=== PATIENT | female | born 1935 | race Caucasian/White ===

== ENCOUNTER 2017-05-16 05:32 | Emergency (ER) | payer MEDICARE, OTHER ==
[2017-05-16 05:40] VITALS: BP 169/105
--- NOTE | 2017-05-16 06:56 | EDM.PDOC ---
ED HPI GENERAL MEDICAL PROBLEM - General Chief Complaint: Cardiovascular Problem Stated Complaint: TROUBLE BREATHING/HIGH BP Time Seen by Provider: 05/16/17 05:39 Source of Information: Reports: Patient History Limitations: Reports: No Limitations - History of Present Illness INITIAL COMMENTS - FREE TEXT/NARRATIVE: History of present illness: [81-year-old female presenting with palpitations that occurred last night when she went to bed. She had a recent echocardiogram and was called and said that her "heart didn't relax well". She has a follow-up appointment with her real estate firm manager on 10 June and is being told that they're going to make some adjustments in her medications. She did not have any lightheadedness or dizziness. She had no chest pain or shortness of breath or diaphoresis. She feels fine here in the ER.] Review of systems: As per history of present illness and below otherwise all systems reviewed and negative. Past medical history: As per history of present illness and as reviewed below otherwise noncontributory. Surgical history: As per history of present illness and as reviewed below otherwise noncontributory. Social history: No reported history of drug or alcohol abuse. Family history: As per history of present illness and as reviewed below otherwise noncontributory. Physical exam: HEENT: Atraumatic, normocephalic, pupils reactive, negative for conjunctival pallor or scleral icterus, mucous membranes moist, throat clear, neck supple, nontender, trachea midline. Lungs: Clear to auscultation, breath sounds equal bilaterally, chest nontender. Heart: S1S2, regular, negative for clicks, rubs, or JVD. Abdomen: Soft, nondistended, nontender. Negative for masses or hepatosplenomegaly. Negative for costovertebral tenderness. Pelvis: Stable nontender. Genitourinary: Deferred. Rectal: Deferred. Extremities: Atraumatic, negative for cords or calf pain. Neurovascular unremarkable. Neuro: Awake, alert, oriented. Cranial nerves II through XII unremarkable. Cerebellum unremarkable. Motor and sensory unremarkable throughout. Exam nonfocal. Diagnostics: [EKG shows a sinus rhythm with no current of ischemia or infarct troponin is negative CBC and complete metabolic panel were done. On the monitor there were no runs of atrial fib or V. tach or ectopy.] Therapeutics: [] Impression: [Subjective palpitations] Plan: [We reassured her that things seem to be okay and that she can continue to take her medications as prescribed and follow-up with her real estate firm manager with anticipation of her medications being changed when she does so.] Definitive disposition and diagnosis as appropriate pending reevaluation and review of above. - Related Data Allergies Allergy/AdvReac Type Severity Reaction Status Date / Time ampicillin Allergy Rash Verified 11/04/14 03:08 niacin Allergy Cannot Verified 11/04/14 03:37 Remember strawberry Allergy Cannot Verified 11/04/14 03:37 Remember Sulfa (Sulfonamide Allergy Cannot Verified 11/04/14 03:08 Antibiotics) Remember zolpidem tartrate Allergy Confusion Verified 11/04/14 03:37 [From Riccardo] Home Meds: Home Meds Aspirin [Ecotrin] 81 mg PO DAILY 11/04/14 [History] Calcium Carbonate/Vitamin D3 [Calcium 600 + Vit D 400] 1 tab PO DAILY 11/04/14 [ History] Metoprolol Succinate [Toprol Xl] 25 mg PO BID 11/04/14 [History] Multivitamin [Multi Vitamin Daily] 1 tab PO DAILY 11/04/14 [History] Ranitidine [Zantac] 150 mg PO DAILY 11/04/14 [History] amLODIPine [Norvasc] 5 mg PO DAILY 11/04/14 [History] atorvaSTATin [Lipitor] 20 mg PO DAILY 11/04/14 [History] Furosemide 40 mg PO DAILY 05/16/17 [History] Warfarin [Coumadin] 1.5 mg PO ASDIRECTED 05/16/17 [History] Warfarin [Coumadin] 1.5 mg PO DAILY 05/16/17 [History] Past Medical History HEENT History: Reports: Impaired Vision Cardiovascular History: Reports: High Cholesterol, Hypertension, [place], Stents 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: Musculoskeletal History: Reports: Osteoarthritis, Osteoporosis - Infectious Disease History Infectious Disease History: Reports: Chicken Pox, Measles, Mumps - Past Surgical History HEENT Surgical History: Reports: Cataract Surgery Cardiovascular Surgical History: Reports: Coronary Artery Stent, Vascular Surgery GI Surgical History: Reports: Appendectomy Social & Family History - Tobacco Use Smoking Status *Q: Never Smoker - Caffeine Use Caffeine Use: Reports: None - Alcohol Use Days Per Week of Alcohol Use: 0 - Recreational Drug Use Recreational Drug Use: No ED ROS GENERAL - Review of Systems Review Of Systems: ROS reveals no pertinent complaints other than HPI. ED EXAM, GENERAL - Physical Exam Exam: See Below Course - Vital Signs Last Recorded V/S: Last Vital Signs Temp 35.2 C 05/16/17 05:39 Pulse 87 05/16/17 05:39 Resp 18 05/16/17 05:39 BP 169/105 H 05/16/17 05:39 Pulse Ox 99 05/16/17 05:39 - Orders/Labs/Meds Labs: Laboratory Tests 05/16/17 05/16/17 Range/Units 06:09 06:09 WBC 6.1 (4.5-11.0) K/uL RBC 4.35 (3.30-5.50) M/uL Hgb 13.0 (12.0-15.0) g/dL Hct 39.4 (36.0-48.0) % MCV 91 (80-98) fL MCH 30 (27-31) pg MCHC 33 (32-36) % Plt Count 216 (150-400) K/uL Neut % (Auto) 72 H (36-66) % Lymph % (Auto) 11 L (24-44) % [place] % (Auto) 13 H (2-6) % Eos % (Auto) 4 (2-4) % Baso % (Auto) 1 (0-1) % Sodium 143 (140-148) mmol/L Potassium 3.7 (3.6-5.2) mmol/L Chloride 108 (100-108) mmol/L Carbon Dioxide 26 (21-32) mmol/L Anion Gap 9.4 (5.0-14.0) mmol/L BUN 23 H (7-18) mg/dL Creatinine 0.8 (0.6-1.0) mg/dL Est Cr Clr Drug Dosing 44.65 mL/min Estimated GFR (MDRD) > 60 (>60) Glucose 109 H (74-106) mg/dL Calcium 8.8 (8.5-10.1) mg/dL Total Bilirubin 0.6 (0.2-1.0) mg/dL AST 18 (15-37) U/L ALT 19 (12-78) U/L Alkaline Phosphatase 105 (46-116) U/L Troponin I < 0.017 (0.000-0.056) ng/mL Total Protein 7.3 (6.4-8.2) g/dL Albumin 3.4 (3.4-5.0) g/dL Globulin 3.9 H (2.3-3.5) g/dL Albumin/Globulin Ratio 0.9 L (1.2-2.2) Departure - Departure Time of Disposition: 06:55 Disposition: Home, Self-Care 01 Condition: Good Clinical Impression: Palpitations Forms: ED Department Discharge Additional Instructions: Please follow-up with your real estate firm manager as planned. Continue to take your medications as prescribed. If you have palpitations that do not go away or you develop chest pain then you will need to return to the emergency room.
== END 2017-05-16 07:00 | disposition home or self-care (01) ==
LOC: JP.ED 05:32
DX: R00.2 Palpitations (principal); E78.00 Pure hypercholesterolemia, unspecified; I10 Essential (primary) hypertension; I25.2 Old myocardial infarction; M81.0 Age-related osteoporosis without current pathological fracture; Z90.49 Acquired absence of other specified parts of digestive tract; Z98.49 Cataract extraction status, unspecified eye; Z95.5 Presence of coronary angioplasty implant and graft; Z88.8 Allergy status to other drugs, medicaments and biological substances; Z88.2 Allergy status to sulfonamides; Z91.018 Allergy to other foods
CPT/HCPCS: 36415; 80053; 84484; 85025; 93005; 93010; 99282; 99285

== ENCOUNTER 2018-04-12 05:34 | Emergency (ER) | payer MEDICARE, OTHER ==
--- NOTE | 2018-04-12 06:08 | EDM.PDOC ---
<Gil Kellogg G - Last Filed: 04/12/18 06:42> ED HPI GENERAL MEDICAL PROBLEM - General Chief Complaint: Cardiovascular Problem Stated Complaint: CHEST PAIN Time Seen by Provider: 04/12/18 06:20 Source of Information: Reports: Patient, Old Records, RN History Limitations: Reports: No Limitations - History of Present Illness INITIAL COMMENTS - FREE TEXT/NARRATIVE: 82 yo female presents after an episode of self-limited central chest pain. Says she awoke about 1 am and could not get back to sleep so she got up and had a glass of milk. When she went back to bed she developed the pain that lasted about 45 minutes and was not associated with SOB, nausea, or diaphoresis. Reports no recent exertional chest pain. Has not missed any of her BP meds recently. States her BP runs about 115 to 140 systolic generally and her last measurement was about a week ago. Did take a TUMS at home after the onset of sx' s and her symptoms resolved, but not right away. Does take ranitidine 150 mg at bedtime every day. Does have a pHx of CAD. Does not ever check her BP the first thing when she awakens, so this BP elevation she is experiencing in the ER may not be new. Onset: Today Onset Date: 04/12/18 Onset Time: 04:00 Duration: Minutes: (about 45 ), Resolved Prior to Arrival Location: Reports: Chest Quality: Reports: Dull Severity: Mild Improves with: Reports: Other (? time vs. 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) (TUMS) denies Pain Score (Numeric/FACES): 0 - Related Data Allergies Allergy/AdvReac Type Severity Reaction Status Date / Time ampicillin Allergy Rash Verified 11/04/14 03:08 niacin Allergy Cannot Verified 11/04/14 03:37 Remember strawberry Allergy Cannot Verified 11/04/14 03:37 Remember Sulfa (Sulfonamide Allergy Cannot Verified 11/04/14 03:08 Antibiotics) Remember zolpidem tartrate Allergy Confusion Verified 11/04/14 03:37 [From Riccardo] Home Meds: Home Meds Calcium Carbonate/Vitamin D3 [Calcium 600 + Vit D 400] 1 tab PO DAILY 11/04/14 [ History] Metoprolol Succinate [Toprol Xl] 50 mg PO BID 11/04/14 [History] Multivitamin [Multi Vitamin Daily] 1 tab PO DAILY 11/04/14 [History] Ranitidine [Zantac] 150 mg PO DAILY 11/04/14 [History] amLODIPine [Norvasc] 10 mg PO DAILY 11/04/14 [History] atorvaSTATin [Lipitor] 20 mg PO DAILY 11/04/14 [History] Furosemide 40 mg PO DAILY 05/16/17 [History] Warfarin [Coumadin] 1 mg PO DAILY 05/16/17 [History] Warfarin [Coumadin] 1.5 mg PO ASDIRECTED 05/16/17 [History] Potassium Chloride [Klor-Con 10] 10 meq PO DAILY 04/12/18 [History] Past Medical History HEENT History: Reports: Impaired Vision Cardiovascular History: Reports: High Cholesterol, Hypertension, [place], Stents 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: Musculoskeletal History: Reports: Osteoarthritis, Osteoporosis - Infectious Disease History Infectious Disease History: Reports: Chicken Pox, Measles, Mumps - Past Surgical History HEENT Surgical History: Reports: Cataract Surgery Cardiovascular Surgical History: Reports: Coronary Artery Stent, Vascular Surgery GI Surgical History: Reports: Appendectomy Social & Family History - Caffeine Use Caffeine Use: Reports: None ED ROS GENERAL - Review of Systems Review Of Systems: See Below Constitutional: Reports: No Symptoms HEENT: Reports: No Symptoms Respiratory: Reports: No Symptoms Cardiovascular: Reports: Chest Pain (now resolved.) GI/Abdominal: Reports: No Symptoms : Reports: No Symptoms Musculoskeletal: Reports: No Symptoms Skin: Reports: No Symptoms Neurological: Reports: No Symptoms ED EXAM, GENERAL - Physical Exam Exam: See Below Exam Limited By: No Limitations General Appearance: Alert, WD/WN, No Apparent Distress Eye Exam: Bilateral Eye: Normal Inspection Ears: Normal External Exam, Normal Canal, Hearing Grossly Normal Ear Exam: Bilateral Ear: Auricle Normal, Canal Normal Nose: Normal Inspection, Normal Mucosa, No Blood Throat/Mouth: Normal Inspection, Normal Lips, Normal Voice, No Airway Compromise Head: Atraumatic, Normocephalic Neck: Normal Inspection Respiratory/Chest: No Respiratory Distress, Lungs Clear, Normal Breath Sounds, No Accessory Muscle Use Cardiovascular: Regular Rate, Rhythm, Other (no chest wall pain) GI/Abdominal: Normal Bowel Sounds, Soft, Non-Tender, No Distention Extremities: Normal Inspection, Normal Range of Motion, Non-Tender, No Pedal Edema Neurological: Alert, Oriented, CN II-XII Intact, Normal Cognition, No Motor/ Sensory Deficits Psychiatric: Normal Affect, Normal Mood Skin Exam: Warm, Dry, Intact, Normal Color, No Rash EKG INTERPRETATION EKG Date: 04/12/18 Time: 05:55 Rhythm: NSR Rate (Beats/Min): 63 [place]: Normal P-Wave: Present QRS: Normal ST-T: Normal QT: Normal Comparison: Change From Previous EKG (ST depression seen on last EKG in lead V5 is no longer present.) Course - Vital Signs Last Recorded V/S: Last Vital Signs Temp 98.8 F 04/12/18 06:39 Pulse 54 L 04/12/18 08:29 Resp 19 04/12/18 08:29 BP 161/62 H 04/12/18 08:29 Pulse Ox 99 04/12/18 08:29 - Orders/Labs/Meds Orders: Active Orders 24 hr Category Date Time Status EKG Documentation Completion [RC] ASDIRECTED Care 04/12/18 06:03 Active EKG 12 Lead [EK] Routine Ther 04/12/18 06:03 Ordered Labs: Laboratory Tests 04/12/18 04/12/18 04/12/18 Range/Units 06:10 06:10 06:10 PT 22.9 H (9.5-12.0) sec INR 2.08 H (0.80-1.20) Sodium 142 (140-148) mmol/L Potassium 3.6 (3.6-5.2) mmol/L Chloride 105 (100-108) mmol/L Carbon Dioxide 27 (21-32) mmol/L Anion Gap 9.9 (5.0-14.0) mmol/L BUN 21 H (7-18) mg/dL Creatinine 0.9 (0.6-1.0) mg/dL Est Cr Clr Drug Dosing 39.18 mL/min Estimated GFR (MDRD) 60 (>60) Glucose 123 H (74-106) mg/dL Calcium 9.5 (8.5-10.1) mg/dL Troponin I < 0.017 (0.000-0.056) ng/mL 04/12/18 Range/Units 08:20 PT (9.5-12.0) sec INR (0.80-1.20) Sodium (140-148) mmol/L Potassium (3.6-5.2) mmol/L Chloride (100-108) mmol/L Carbon Dioxide (21-32) mmol/L Anion Gap (5.0-14.0) mmol/L BUN (7-18) mg/dL Creatinine (0.6-1.0) mg/dL Est Cr Clr Drug Dosing mL/min Estimated GFR (MDRD) (>60) Glucose (74-106) mg/dL Calcium (8.5-10.1) mg/dL Troponin I < 0.017 (0.000-0.056) ng/mL Departure - Departure Disposition: Home, Self-Care 01 Clinical Impression: Epigastric pain Referrals: Yovany Miramontes MD [Primary Care Provider] - Forms: ED Department Discharge Additional Instructions: Please followup with your primary care provider in 2-3 days if not better, please call return to the emergency department with worsening of symptoms. <OfficerVipin - Last Filed: 04/12/18 08:59> Departure - Departure Time of Disposition: 08:58 Condition: Good - Assessment/Plan Plan: Assessment Acuity = acute Site and laterality = epigastric pain Etiology = unclear etiology Manifestations = all symptoms now resolved Location of injury = Home Lab values = BMP within normal limits, INR is therapeutic troponin is negative 2 EKG demonstrates no acute process Plan Plan is to discharge home follow-up primary care in the next 2-3 days for reevaluation This note was dictated using [employer] voice recognition software please call with any questions on syntax or grammar.
[2018-04-12 08:29] VITALS: BP 161/62
== END 2018-04-12 09:08 | disposition home or self-care (01) ==
LOC: JP.ED 05:34
DX: R10.13 Epigastric pain (principal); E78.00 Pure hypercholesterolemia, unspecified; I10 Essential (primary) hypertension; I25.2 Old myocardial infarction; Z88.0 Allergy status to penicillin; Z88.2 Allergy status to sulfonamides; Z88.8 Allergy status to other drugs, medicaments and biological substances; Z79.01 Long term (current) use of anticoagulants; Z79.899 Other long term (current) drug therapy; Z95.5 Presence of coronary angioplasty implant and graft; Z90.49 Acquired absence of other specified parts of digestive tract
CPT/HCPCS: 36415; 80048; 84484; 85610; 93005; 93010; 99285-25

== ENCOUNTER 2018-06-05 17:19 | Emergency (ER) | payer MEDICARE, OTHER ==
[2018-06-05 18:35] VITALS: BP 193/92
[2018-06-05] MEDS ORDERED: Bacitracin Oint 1 GM U/D Packet TOP ONE (18:58)
--- NOTE | 2018-06-05 19:28 | EDM.PDOC ---
ED HPI GENERAL MEDICAL PROBLEM - General Chief Complaint: Laceration Stated Complaint: CUT RIGHT INDEX FINGER WITH A KNIFE Time Seen by Provider: 06/05/18 18:40 Source of Information: Reports: Patient, Family () History Limitations: Reports: No Limitations - History of Present Illness INITIAL COMMENTS - FREE TEXT/NARRATIVE: cut to right pointer finger; this is a 82 y/o female presents to ER for laceration repair. she reports was using a knife and cut her finger. She is on coumadin, and finger bled for about one hour then decided they couldn't glue the finger and came to the ER. 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) - Related Data Allergies Allergy/AdvReac Type Severity Reaction Status Date / Time ampicillin Allergy Rash Verified 11/04/14 03:08 niacin Allergy Cannot Verified 11/04/14 03:37 Remember strawberry Allergy Cannot Verified 11/04/14 03:37 Remember Sulfa (Sulfonamide Allergy Cannot Verified 11/04/14 03:08 Antibiotics) Remember zolpidem tartrate Allergy Confusion Verified 11/04/14 03:37 [From Riccardo] Home Meds: Home Meds Calcium Carbonate/Vitamin D3 [Calcium 600 + Vit D 400] 1 tab PO DAILY 11/04/14 [ History] Metoprolol Succinate [Toprol Xl] 50 mg PO BID 11/04/14 [History] Multivitamin [Multi Vitamin Daily] 1 tab PO DAILY 11/04/14 [History] Ranitidine [Zantac] 150 mg PO DAILY 11/04/14 [History] amLODIPine [Norvasc] 10 mg PO DAILY 11/04/14 [History] atorvaSTATin [Lipitor] 20 mg PO DAILY 11/04/14 [History] Furosemide 40 mg PO DAILY 05/16/17 [History] Warfarin [Coumadin] 1 mg PO DAILY 05/16/17 [History] Warfarin [Coumadin] 1.5 mg PO ASDIRECTED 05/16/17 [History] Potassium Chloride [Klor-Con 10] 10 meq PO DAILY 04/12/18 [History] Past Medical History HEENT History: Reports: Impaired Vision Cardiovascular History: Reports: High Cholesterol, Hypertension, [place], 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: Musculoskeletal History: Reports: Osteoarthritis, Osteoporosis - Infectious Disease History Infectious Disease History: Reports: Chicken Pox, Measles, Mumps - Past Surgical History HEENT Surgical History: Reports: Cataract Surgery Cardiovascular Surgical History: Reports: Coronary Artery Stent, Vascular Surgery GI Surgical History: Reports: Appendectomy Social & Family History - Tobacco Use Smoking Status *Q: Never Smoker - Caffeine Use Caffeine Use: Reports: Coffee - Living Situation & Occupation Living situation: Reports: 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, 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 [employer], 3 children (one daughter lives in the area), many grandchildren.) ED ROS GENERAL - Review of Systems Review Of Systems: See Below Constitutional: Reports: No Symptoms Respiratory: Reports: No Symptoms Cardiovascular: Reports: No Symptoms Skin: Reports: Wound (laceration to PIP joint of the first finger of right hand) Neurological: Reports: No Symptoms Psychiatric: Reports: No Symptoms Hematologic/Lymphatic: Reports: No Symptoms Immunologic: Reports: Seasonal Allergy ED EXAM, SKIN/RASH Exam: See Below Exam Limited By: No Limitations General Appearance: Alert, WD/WN, No Apparent Distress Neck: Supple Respiratory/Chest: No Respiratory Distress, Lungs Clear, Normal Breath Sounds, No Accessory Muscle Use Cardiovascular: Normal Peripheral Pulses, No Edema, No Murmur, Irregularly Irregular (A-Fib) Skin: Warm, Dry, Normal Color, No Rash, Other (laceration to first finger of right hand) Location, Skin: Other (right finger) Characteristics: Linear Associated features: Tenderness, Weeping Lymphatic: No Adenopathy ED SKIN PROCEDURES - Laceration/Wound Repair right Midline Finger Lac/Wound length In cm: 1.5 Appearance: Subcutaneous, Linear, Clean Distal NVT: Neuro & Vascular Intact, No Tendon Injury Anesthetic Type: Local Local Anesthesia - Lidocaine (Xylocaine): 1% Plain Local Anesthetic Volume: 2cc Skin Prep: Chlorhexidine (Hibiciens), Saline Saline Irrigation (cc's): 20 Closed with: Sutures Suture Size: 4-0 # of Sutures: 5 Suture Type: Prolene Sterile Dressing Applied: Provider Tetanus Status Addressed: Yes Complications: No Course - Vital Signs Last Recorded V/S: Last Vital Signs Temp 35 C L 06/05/18 18:35 Pulse 70 07/07/18 18:35 Resp 18 06/05/18 18:35 BP 193/92 H 06/05/18 18:35 Pulse Ox 99 06/05/18 18:35 - Orders/Labs/Meds Meds: Medications Discontinued Medications Generic Name Dose Route Start Last Admin Trade Name Martin PRN Reason Stop Dose Admin Bacitracin 1 dose 06/05/18 18:58 06/05/18 19:05 Bacitracin Oint 1 Gm TOP 06/05/18 18:59 1 dose ONETIME ONE Administration Lidocaine HCl 5 ml 06/05/18 18:58 06/05/18 19:05 Xylocaine-Mpf 1% INJECT 06/05/18 18:59 5 ml ONETIME ONE Administration Departure - Departure Time of Disposition: 19:40 Disposition: Home, Self-Care 01 Condition: Good Clinical Impression: Broken skin, Laceration of index finger of right hand without complication - Discharge Information Instructions: Stitches, [place], or Adhesive Wound Closure, [id number] Referrals: Yovany Miramontes MD [Primary Care Provider] - Forms: ED Department Discharge Care Plan Goals: laceration repair of right pointer finger -suture x 5 ; have removed in 5 to 10 days -keep bandage for 2 days, then keep clean and dry -monitor for signs of infections return to Clinic or ER for increased pain, fever, redness, drainage or not improved. - Problem List & Annotations (1) Laceration of index finger of right hand without complication SNOMED Code(s): 989085626 Code(s): S61.210A - LACERATION W/O FB OF R IDX FNGR W/O DAMAGE TO NAIL, INIT Status: Acute Priority: Medium - Problem List Review Problem List Initiated/Reviewed/Updated: Yes - Assessment/Plan Plan: aceration repair of right pointer finger -suture x 5 ; have removed in 5 to 10 days -keep bandage for 2 days, then keep clean and dry -monitor for signs of infections return to Clinic or ER for increased pain, fever, redness, drainage or not improved.
== END 2018-06-05 19:42 | disposition home or self-care (01) ==
LOC: JP.ED 17:19
DX: S61.210A Laceration without foreign body of right index finger without damage to nail, initial encounter (principal); I10 Essential (primary) hypertension; I25.2 Old myocardial infarction; Z88.1 Allergy status to other antibiotic agents; Z91.018 Allergy to other foods; Z88.8 Allergy status to other drugs, medicaments and biological substances; Z88.2 Allergy status to sulfonamides; W26.0XXA Contact with knife, initial encounter
CPT/HCPCS: 12001; 99283-25

== ENCOUNTER 2018-12-17 05:38 | Emergency (ER) | payer MEDICARE, OTHER ==
[2018-12-17] MEDS ORDERED: Metoprolol Tartrate 25 MG Tab PO ONE (06:05)
[2018-12-17] MEDS ORDERED: Metoprolol Tartrate 5 MG/5 ML SDV IVPUSH ONE (06:06)
--- NOTE | 2018-12-17 06:13 | EDM.PDOC ---
<Gil Kellogg G - Last Filed: 12/17/18 06:26> ED HPI GENERAL MEDICAL PROBLEM - General Chief Complaint: General Stated Complaint: /MAYBE A FIB Time Seen by Provider: 12/17/18 06:00 Source of Information: Reports: Patient, Old Records History Limitations: Reports: No Limitations - History of Present Illness INITIAL COMMENTS - FREE TEXT/NARRATIVE: 82 yo female here with tachycardia. Has a hx of afib. INR last measured last week and was 2.2, levels have been stable. Last took her 50 mg of bid metoprolol succinate at 4 am today. Is aware of the tachycardia and has mild SOB with exertion, no chest pain. No fever, vomiting, diarrhea,diaphoresis or bleeding. Thinks she is in NSR most of the time and has intermittent bouts of the afib. Thinks her last episode of afib may have been in '16. 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: Other (see below) (took her morning meds a little early ) Denies pain Pain Score (Numeric/FACES): 0 - Related Data Allergies Allergy/AdvReac Type Severity Reaction Status Date / Time ampicillin Allergy Rash Verified 12/17/18 06:08 niacin Allergy Cannot Verified 12/17/18 06:08 Remember strawberry Allergy Cannot Verified 12/17/18 06:08 Remember Sulfa (Sulfonamide Allergy Cannot Verified 12/17/18 06:08 Antibiotics) Remember zolpidem tartrate Allergy Confusion Verified 12/17/18 06:08 [From Riccardo] Home Meds: Home Meds Calcium Carbonate/Vitamin D3 [Calcium 600 + Vit D 400] 1 tab PO DAILY 11/04/14 [ History] Metoprolol Succinate [Toprol Xl] 50 mg PO BID 11/04/14 [History] Multivitamin [Multi Vitamin Daily] 1 tab PO DAILY 11/04/14 [History] Ranitidine [Zantac] 150 mg PO DAILY 11/04/14 [History] amLODIPine [Norvasc] 10 mg PO DAILY 11/04/14 [History] atorvaSTATin [Lipitor] 20 mg PO DAILY 11/04/14 [History] Furosemide 40 mg PO DAILY 05/16/17 [History] Warfarin [Coumadin] 1 mg PO DAILY 05/16/17 [History] Warfarin [Coumadin] 1.5 mg PO ASDIRECTED 05/16/17 [History] Potassium Chloride [Klor-Con 10] 10 meq PO DAILY 04/12/18 [History] Past Medical History HEENT History: Reports: Impaired Vision Cardiovascular History: Reports: Heart Valve Replacement, High Cholesterol, Hypertension, [place], Stents 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: Musculoskeletal History: Reports: Osteoarthritis, Osteoporosis - Infectious Disease History Infectious Disease History: Reports: Chicken Pox, Measles, Mumps - Past Surgical History HEENT Surgical History: Reports: Cataract Surgery Cardiovascular Surgical History: Reports: Coronary Artery Stent, Vascular Surgery GI Surgical History: Reports: Appendectomy Social & Family History - Caffeine Use Caffeine Use: Reports: Coffee - Living Situation & Occupation Living situation: Reports: 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 Denies : Pleuritic Chest Pain Cardiovascular: Reports: Palpitations GI/Abdominal: Reports: No Symptoms : Reports: No Symptoms Musculoskeletal: Reports: No Symptoms Skin: Reports: No Symptoms Neurological: Reports: No Symptoms Psychiatric: Reports: No Symptoms ED EXAM, GENERAL - Physical Exam Exam: See Below Exam Limited By: No Limitations General Appearance: Alert, WD/WN, No Apparent Distress Eye Exam: Bilateral Eye: Normal Inspection Ears: Normal External Exam, Normal Canal, Hearing Grossly Normal Ear Exam: Bilateral Ear: Auricle Normal, Canal Normal Nose: Normal Inspection, No Blood Throat/Mouth: Normal Inspection, Normal Lips, Normal Oropharynx, Normal Voice, No Airway Compromise Head: Atraumatic, Normocephalic Neck: Normal Inspection Respiratory/Chest: No Respiratory Distress, Lungs Clear, Normal Breath Sounds, No Accessory Muscle Use Cardiovascular: No Edema, Tachycardia, Irregularly Irregular GI/Abdominal: Normal Bowel Sounds, Soft, Non-Tender, No Distention Extremities: Normal Inspection, Normal Range of Motion, Non-Tender, No Pedal Edema, Mottled Neurological: Alert, Oriented, Normal Cognition, No Motor/Sensory Deficits Psychiatric: Normal Affect, Normal Mood Skin Exam: Warm, Dry, Intact, Normal Color, No Rash EKG INTERPRETATION EKG Date: 12/17/18 Time: 06:05 Rhythm: A-Fib Rate (Beats/Min): 131 [place]: LAD-Left [place] Deviation P-Wave: Absent QRS: Normal ST-T: Normal QT: Prolonged Comparison: Change From Previous EKG (last EKG of 04/16, she was not in afib) Course - Vital Signs Last Recorded V/S: Last Vital Signs Temp 97.7 F 12/17/18 05:57 Pulse 65 12/17/18 07:15 Resp 17 12/17/18 07:15 BP 121/67 12/17/18 07:15 Pulse Ox 95 12/17/18 07:15 - Orders/Labs/Meds Labs: Laboratory Tests 12/17/18 12/17/18 12/17/18 Range/Units 05:27 05:27 07:22 WBC 7.8 (4.5-11.0) K/uL RBC 4.04 (3.30-5.50) M/uL Hgb 12.5 (12.0-15.0) g/dL Hct 37.5 (36.0-48.0) % MCV 93 (80-98) fL MCH 31 (27-31) pg MCHC 33 (32-36) % Plt Count 203 (150-400) K/uL Neut % (Auto) 76 H (36-66) % Lymph % (Auto) 10 L (24-44) % Morrison % (Auto) 12 H (2-6) % Eos % (Auto) 2 (2-4) % Baso % (Auto) 0 (0-1) % PT 21.0 H (9.5-12.0) sec INR 1.98 H (0.80-1.20) Sodium (140-148) mmol/L Potassium (3.6-5.2) mmol/L Chloride (100-108) mmol/L Carbon Dioxide (21-32) mmol/L Anion Gap (5.0-14.0) mmol/L BUN (7-18) mg/dL Creatinine (0.6-1.0) mg/dL Est Cr Clr Drug Dosing mL/min Estimated GFR (MDRD) (>60) Glucose (74-106) mg/dL Calcium (8.5-10.1) mg/dL Total Bilirubin (0.2-1.0) mg/dL AST (15-37) U/L ALT (12-78) U/L Alkaline Phosphatase (46-116) U/L Troponin I < 0.017 (0.000-0.056) ng/mL Total Protein (6.4-8.2) g/dL Albumin (3.4-5.0) g/dL Globulin (2.3-3.5) g/dL Albumin/Globulin Ratio (1.2-2.2) 12/17/18 Range/Units 07:22 WBC (4.5-11.0) K/uL RBC (3.30-5.50) M/uL Hgb (12.0-15.0) g/dL Hct (36.0-48.0) % MCV (80-98) fL MCH (27-31) pg MCHC (32-36) % Plt Count (150-400) K/uL Neut % (Auto) (36-66) % Lymph % (Auto) (24-44) % Morrison % (Auto) (2-6) % Eos % (Auto) (2-4) % Baso % (Auto) (0-1) % PT (9.5-12.0) sec INR (0.80-1.20) Sodium 142 (140-148) mmol/L Potassium 3.4 L (3.6-5.2) mmol/L Chloride 105 (100-108) mmol/L Carbon Dioxide 25 (21-32) mmol/L Anion Gap 15.4 H (5.0-14.0) mmol/L BUN 18 (7-18) mg/dL Creatinine 0.9 (0.6-1.0) mg/dL Est Cr Clr Drug Dosing 39.18 mL/min Estimated GFR (MDRD) 60 (>60) Glucose 109 H (74-106) mg/dL Calcium 8.9 (8.5-10.1) mg/dL Total Bilirubin 0.6 (0.2-1.0) mg/dL AST 27 (15-37) U/L ALT 31 (12-78) U/L Alkaline Phosphatase 88 (46-116) U/L Troponin I (0.000-0.056) ng/mL Total Protein 7.0 (6.4-8.2) g/dL Albumin 3.3 L (3.4-5.0) g/dL Globulin 3.7 H (2.3-3.5) g/dL Albumin/Globulin Ratio 0.9 L (1.2-2.2) Meds: Medications Discontinued Medications Generic Name Dose Route Start Last Admin Trade Name Martin PRN Reason Stop Dose Admin Diltiazem HCl 20 mg 12/17/18 07:28 12/17/18 07:32 Diltiazem IVPUSH 12/17/18 07:29 20 mg ONETIME ONE Administration Metoprolol Tartrate 25 mg 12/17/18 06:05 12/17/18 06:15 Lopressor PO 12/17/18 06:06 25 mg ONETIME ONE Administration Metoprolol Tartrate 5 mg 12/17/18 06:06 12/17/18 06:16 Lopressor IVPUSH 12/17/18 06:07 5 mg ONETIME ONE Administration Departure - Departure Disposition: Home, Self-Care 01 Clinical Impression: Atrial fibrillation with RVR - Discharge Information Referrals: Yovany Miramontes MD [Primary Care Provider] - Forms: ED Department Discharge Additional Instructions: Continue on your regular medications, Please followup with your primary care provider in 3-5 days if not better, please call return to the emergency department with worsening of symptoms. <OfficerVipin - Last Filed: 12/17/18 08:38> Course - Re-Assessments/Exams Free Text/Narrative Re-Assessment/Exam: 12/17/18 07:29 Took over care from Dr. Kellogg at 7:00 AM Departure - Departure Time of Disposition: 08:37 Condition: Fair - Assessment/Plan Plan: Assessment Acuity = acute Site and laterality = atrial fibrillation with rapid ventricular response complicated patient with a known history as well as chronically anticoagulated on Coumadin status post spontaneous conversion Etiology = unknown Manifestations = palpitations and dyspnea on exertion now resolved Location of injury = Home Lab values = CBC, CMP, troponin all within normal limits, INR slightly subtherapeutic at 1.98 initial EKG demonstrates atrial fibrillation with a rapid ventricular response Plan She did receive metoprolol while in the ED initially had minimal effect and then she spontaneously converted, we did observe her for 30 minutes after spontaneous conversion discussed options such as watchful waiting versus increasing or adding another medication, she elected to do watchful waiting will follow up with her primary care in the next 3-5 days for reevaluation she will also contact the Coumadin clinic as well This note was dictated using schoox voice recognition software please call with any questions on syntax or grammar.
[2018-12-17] MEDS: Diltiazem 25 MG/5 ML SDV IVPUSH ONE ×2 (07:32→09:00)
[2018-12-17 07:49] VITALS: BP 121/67
== END 2018-12-17 09:00 | disposition home or self-care (01) ==
LOC: JP.ED 05:38
DX: I48.91 Unspecified atrial fibrillation (principal); I10 Essential (primary) hypertension; I25.2 Old myocardial infarction; Z88.1 Allergy status to other antibiotic agents; Z91.018 Allergy to other foods; Z88.2 Allergy status to sulfonamides; Z88.9 Allergy status to unspecified drugs, medicaments and biological substances
CPT/HCPCS: 36415; 80053; 84484; 85025; 85610; 96374; 99285; A9270; J3490

== ENCOUNTER 2019-10-29 09:57 | Emergency (ER) | payer MEDICARE, OTHER ==
[2019-10-29] MEDS ORDERED: Metoprolol Tartrate 5 MG in Sodium Chloride 0.9% 50 ML IV ONE (10:16)
[2019-10-29] MEDS: Metoprolol Tartrate 5 MG/5 ML SDV IVPUSH ONE (10:48)
--- NOTE | 2019-10-29 10:52 | EDM.PDOC ---
ED HPI GENERAL MEDICAL PROBLEM - General Chief Complaint: Cardiovascular Problem Stated Complaint: A FIB? Time Seen by Provider: 10/29/19 10:20 Source of Information: Reports: Patient History Limitations: Reports: No Limitations - History of Present Illness INITIAL COMMENTS - FREE TEXT/NARRATIVE: 83-year-old with known history of paroxysmal A. fib, as well as aortic valve replacement, managed on Coumadin, comes in with concerns of A. fib. She reports she woke up at approximately 7 AM this morning and was experiencing palpitations. She denies any associated dyspnea or chest pain. She does have a sensation of heaviness. She is otherwise been feeling well. No increased caffeine or alcohol intake. She reports prior episodes of A. fib that required medical attention, occasionally these resolve spontaneously but also she has required cardioversion. Chest Pain Score (Numeric/FACES): 2 - Related Data Allergies Allergy/AdvReac Type Severity Reaction Status Date / Time ampicillin Allergy Rash Verified 10/29/19 10:38 niacin Allergy Cannot Verified 10/29/19 10:38 Remember strawberry Allergy Cannot Verified 10/29/19 10:38 Remember Sulfa (Sulfonamide Allergy Cannot Verified 10/29/19 10:38 Antibiotics) Remember zolpidem tartrate Allergy Confusion Verified 10/29/19 10:38 [From Riccardo] Home Meds: Home Meds Calcium Carbonate/Vitamin D3 [Calcium 600 + Vit D 400] 1 tab PO DAILY 11/04/14 [ History] Metoprolol Succinate [Toprol Xl] 50 mg PO BID 11/04/14 [History] Multivitamin [Multi Vitamin Daily] 1 tab PO DAILY 11/04/14 [History] amLODIPine [Norvasc] 10 mg PO DAILY 11/04/14 [History] atorvaSTATin [Lipitor] 20 mg PO BEDTIME 11/04/14 [History] Furosemide 40 mg PO DAILY 05/16/17 [History] Warfarin [Coumadin] 1 mg PO BEDTIME 05/16/17 [History] Potassium Chloride [Klor-Con 10] 10 meq PO DAILY 04/12/18 [History] Benzonatate 100 mg PO TID 10/29/19 [History] Clindamycin HCl 600 mg PO ASDIRECTED PRN 10/29/19 [History] Oxybutynin 2.5 mg PO BID 10/29/19 [History] predniSONE [Prednisone] 3 mg PO DAILY 10/29/19 [History] Past Medical History HEENT History: Reports: Impaired Vision Cardiovascular History: Reports: Heart Valve Replacement, High Cholesterol, Hypertension, [place], Stents 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: Musculoskeletal History: Reports: Osteoarthritis, Osteoporosis - Infectious Disease History Infectious Disease History: Reports: Chicken Pox, Measles, Mumps - Past Surgical History HEENT Surgical History: Reports: Cataract Surgery Cardiovascular Surgical History: Reports: Coronary Artery Stent, Vascular Surgery GI Surgical History: Reports: Appendectomy Social & Family History - Tobacco Use Smoking Status *Q: Never Smoker - Caffeine Use Caffeine Use: Reports: Coffee - Recreational Drug Use Recreational Drug Use: No - Living Situation & Occupation Living situation: Reports: 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, 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, 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 (one daughter lives in the area), many grandchildren.) ED ROS GENERAL - Review of Systems Review Of Systems: See Below Constitutional: Reports: No Symptoms HEENT: Reports: No Symptoms Respiratory: Reports: No Symptoms Cardiovascular: Reports: Palpitations Endocrine: Reports: No Symptoms GI/Abdominal: Reports: No Symptoms : Reports: No Symptoms Musculoskeletal: Reports: No Symptoms Skin: Reports: No Symptoms Neurological: Reports: No Symptoms Psychiatric: Reports: No Symptoms Hematologic/Lymphatic: Reports: No Symptoms Immunologic: Reports: No Symptoms ED EXAM, GENERAL - Physical Exam Exam: See Below Exam Limited By: No Limitations General Appearance: Alert, No Apparent Distress Ears: Normal External Exam Nose: Normal Inspection Throat/Mouth: Normal Inspection Head: Atraumatic, Normocephalic Neck: Normal Inspection Respiratory/Chest: Lungs Clear Cardiovascular: Tachycardia, Irregularly Irregular GI/Abdominal: Soft, Non-Tender Back Exam: Normal Inspection Extremities: Normal Inspection. No: Pedal Edema Neurological: Alert, Oriented Psychiatric: Normal Affect, Normal Mood Skin Exam: Warm, Dry ED CARDIOLOGY PROCEDURES - Cardioversion Time of Cardioversion: 11:46 Indication: Atrial Fibrillation with RVR Patient Counseled: Yes Informed Consent Obtained: Yes Preparation: IV Access, Airway Management Equipment, Supplemental Oxygen, Monitor Pre-Procedure Sedation: Other (propofol per HARNESS CUTTER) Cardioversion Energy: Other (150J Sync) Mode: Biphasic Successful: Yes Number of Attempts: 1 Patient Condition Post Cardioversion: Improved Post Cardioversion EKG Reviewed: Yes (NSR) Course - Vital Signs Last Recorded V/S: Last Vital Signs Temp 36.8 C 10/29/19 10:24 Pulse 143 H 10/29/19 10:57 Resp 22 H 10/29/19 10:57 BP 101/38 L 10/29/19 10:57 Pulse Ox 96 10/29/19 10:57 - Orders/Labs/Meds Orders: Active Orders 24 hr Category Date Time Status EKG Documentation Completion [RC] ASDIRECTED Care 10/29/19 10:07 Active EKG Documentation Completion [RC] ASDIRECTED Care 10/29/19 11:34 Active EKG 12 Lead [EK] Routine Ther 10/29/19 10:07 Ordered EKG 12 Lead [EK] Routine Ther 10/29/19 11:34 Ordered Labs: Laboratory Tests 10/29/19 10/29/19 10/29/19 Range/Units 10:18 10:18 10:18 WBC 10.7 (4.5-11.0) K/uL RBC 4.35 (3.30-5.50) M/uL Hgb 13.0 (12.0-15.0) g/dL Hct 41.6 (36.0-48.0) % MCV 96 (80-98) fL MCH 30 (27-31) pg MCHC 31 L (32-36) % Plt Count 304 (150-400) K/uL PT 31.6 H (9.5-12.0) sec INR 3.12 H (0.80-1.20) Sodium 142 (140-148) mmol/L Potassium 3.7 (3.6-5.2) mmol/L Chloride 105 (100-108) mmol/L Carbon Dioxide 25 (21-32) mmol/L Anion Gap 12.1 (5.0-14.0) mmol/L BUN 13 (7-18) mg/dL Creatinine 0.9 (0.6-1.0) mg/dL Est Cr Clr Drug Dosing 38.49 mL/min Estimated GFR (MDRD) 60 (>60) Glucose 130 H (74-106) mg/dL Calcium 9.4 (8.5-10.1) mg/dL Magnesium 2.1 (1.8-2.4) mg/dL Total Bilirubin 0.7 (0.2-1.0) mg/dL AST 27 (15-37) U/L ALT 37 (12-78) U/L Alkaline Phosphatase 99 (46-116) U/L Total Protein 7.6 (6.4-8.2) g/dL Albumin 3.6 (3.4-5.0) g/dL Globulin 4.0 H (2.3-3.5) g/dL Albumin/Globulin Ratio 0.9 L (1.2-2.2) Meds: Medications Discontinued Medications Generic Name Dose Route Start Last Admin Trade Name Freq PRN Reason Stop Dose Admin Metoprolol Tartrate 5 mg/ 55 mls @ 100 mls/hr 10/29/19 10:16 Sodium Chloride IV 10/29/19 10:48 ONETIME ONE Metoprolol Tartrate 5 mg 10/29/19 10:41 10/29/19 10:48 Lopressor IVPUSH 10/29/19 10:42 5 mg ONETIME ONE Administration Propofol Confirm 10/29/19 11:42 Diprivan 20 Ml Administered 10/29/19 11:43 Dose 200 mg .ROUTE .STK-MED ONE - Re-Assessments/Exams Free Text/Narrative Re-Assessment/Exam: 83-year-old with history of paroxysmal A. fib managed on Coumadin presents with concerns of A. fib. She is found to be in A. fib with RVR. She has no other signs or symptoms of heart failure. No clear trigger, but is not endorsing ischemic symptoms. We are checking basic labs, INR, and given her a dose of Lopressor to monitor for a bit for spontaneous resolution or improvement in symptoms. If we cannot achieve this and we will plan for sedation and cardioversion as she sounds like she's had some success with this in the past. 10/29/19 10:51 Free Text/Narrative Re-Assessment/Exam: Labs are unremarkable, she has a supratherapeutic INR. She already had a plan in place to address this with her Coumadin clinic. No response with 5mg lopressor. Elected then to proceed straight to cardioversion which was successful Anticipate discharge with prn follow-up once she has recovered appropriately from sedation. 10/29/19 11:47 Departure - Departure Time of Disposition: 11:48 Disposition: Home, Self-Care 01 Clinical Impression: Atrial fibrillation with RVR Instructions: Atrial Fibrillation, [id number] Referrals: Yovany Miramontes MD [Primary Care Provider] - Forms: ED Department Discharge Additional Instructions: You have been successfully cardioverted out of atrial fibrillation. We do not need to change any of her medications. Please follow-up with your Coumadin clinic as planned Please return to the ER if you have recurrent symptoms or feel that your a-fib has returned. - My Orders Last 24 Hours: My Active Orders 10/29/19 10:07 EKG Documentation Completion [RC] ASDIRECTED EKG 12 Lead [EK] Routine 10/29/19 11:34 EKG Documentation Completion [RC] ASDIRECTED EKG 12 Lead [EK] Routine - Assessment/Plan Last 24 Hours: My Active Orders 10/29/19 10:07 EKG Documentation Completion [RC] ASDIRECTED EKG 12 Lead [EK] Routine 10/29/19 11:34 EKG Documentation Completion [RC] ASDIRECTED EKG 12 Lead [EK] Routine
[2019-10-29] MEDS ORDERED: Propofol 200 MG/20 ML SDV ONE (11:42)
[2019-10-29 12:05] VITALS: BP 143/55; PULSE 59
== END 2019-10-29 12:20 | disposition home or self-care (01) ==
LOC: JP.ED 09:57
DX: I48.0 Paroxysmal atrial fibrillation (principal); E78.00 Pure hypercholesterolemia, unspecified; I10 Essential (primary) hypertension; I25.2 Old myocardial infarction; Z88.1 Allergy status to other antibiotic agents; Z88.8 Allergy status to other drugs, medicaments and biological substances; Z91.018 Allergy to other foods; Z88.2 Allergy status to sulfonamides; Z95.2 Presence of prosthetic heart valve; Z95.5 Presence of coronary angioplasty implant and graft; Z79.01 Long term (current) use of anticoagulants
CPT/HCPCS: 36415; 80053; 83735; 85027; 85610; 92960; 93005; 93010; 96374; 99283; 99285-25; J2704; J3490

== ENCOUNTER 2020-08-05 04:19 | Inpatient (IN) | payer MEDICARE, OTHER ==
[2020-08-05] MEDS ORDERED: Diltiazem 25 MG/5 ML SDV IVPUSH ONE ×2 (04:50→05:19)
--- NOTE | 2020-08-05 04:58 | EDM.PDOC ---
ED HPI GENERAL MEDICAL PROBLEM - General Chief Complaint: Cardiovascular Problem Stated Complaint: TROUBLE BREATHING Time Seen by Provider: 08/05/20 04:53 Source of Information: Reports: Patient History Limitations: Reports: No Limitations - History of Present Illness INITIAL COMMENTS - FREE TEXT/NARRATIVE: pt is sob and is feeling like her heart is rapid. She has not had chest pain. She believes that she has been in a abnormal rhythm for the past 2 days. Onset: Other (probaly 2 days ago. ) Duration: Hour(s): Location: Reports: Chest Associated Symptoms: Reports: Shortness of Breath, Weakness Headache Pain Score (Numeric/FACES): 3 - Related Data Allergies Allergy/AdvReac Type Severity Reaction Status Date / Time ampicillin Allergy Rash Verified 08/05/20 04:29 niacin Allergy Cannot Verified 08/05/20 04:29 Remember strawberry Allergy Cannot Verified 08/05/20 04:29 Remember Sulfa (Sulfonamide Allergy Cannot Verified 08/05/20 04:29 Antibiotics) Remember zolpidem tartrate Allergy Confusion Verified 08/05/20 04:29 [From Riccardo] Home Meds: Home Meds Calcium Carbonate/Vitamin D3 [Calcium 600 + Vit D 400] 1 tab PO DAILY 11/04/14 [History] Metoprolol Succinate [Toprol Xl] 50 mg PO BID 11/04/14 [History] Multivitamin [Multi Vitamin Daily] 1 tab PO DAILY 11/04/14 [History] amLODIPine [Norvasc] 10 mg PO DAILY 11/04/14 [History] atorvaSTATin [Lipitor] 20 mg PO BEDTIME 11/04/14 [History] Furosemide 40 mg PO DAILY 05/16/17 [History] Warfarin [Coumadin] 1 mg PO BEDTIME 05/16/17 [History] Potassium Chloride [Klor-Con 10] 10 meq PO DAILY 04/12/18 [History] Benzonatate 100 mg PO TID 10/29/19 [History] Clindamycin HCl 600 mg PO ASDIRECTED PRN 10/29/19 [History] Oxybutynin 2.5 mg PO BID 10/29/19 [History] Warfarin [Coumadin] 0.5 mg PO BEDTIME 08/05/20 [History] Past Medical History HEENT History: Reports: Impaired Vision Cardiovascular History: Reports: Afib, Heart Valve Replacement, High Cholesterol, Hypertension, NH, Stents [employer] History: Reports: Musculoskeletal History: Reports: Osteoarthritis, Osteoporosis - Infectious Disease History Infectious Disease History: Reports: Chicken Pox, Measles, Mumps - Past Surgical History HEENT Surgical History: Reports: Cataract Surgery Cardiovascular Surgical History: Reports: Coronary Artery Stent, Vascular Surgery GI Surgical History: Reports: Appendectomy Social & Family History - Tobacco Use Smoking Status *Q: Former Smoker Used Tobacco, but Quit: Yes Month/Year Tobacco Last Used: 11/1998 - Caffeine Use Caffeine Use: Reports: Coffee - Recreational Drug Use Recreational Drug Use: No - Living Situation & Occupation Living situation: Reports: 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, 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, 3 children (one daughter lives in the area), many grandchildren.) ED ROS GENERAL - Review of Systems Review Of Systems: See Below Constitutional: Reports: Weakness HEENT: Reports: No Symptoms Respiratory: Reports: Shortness of Breath, Wheezing, Cough Cardiovascular: Reports: Lightheadedness, Palpitations Endocrine: Reports: No Symptoms GI/Abdominal: Reports: No Symptoms : Reports: No Symptoms Musculoskeletal: Reports: No Symptoms Skin: Reports: No Symptoms Neurological: Reports: Dizziness Psychiatric: Reports: No Symptoms ED EXAM, GENERAL - Physical Exam Exam: See Below Free Text/Narrative:: pt arrived quite sob and feeling like her heart is rapid. Exam Limited By: No Limitations General Appearance: Alert, Anxious, Mild Distress, Other (pupils equal and reactive. ) Ears: Normal TMs Nose: Normal Inspection Throat/Mouth: Normal Inspection Head: Atraumatic Neck: Normal Inspection Respiratory/Chest: Wheezing, Other ( sob) Cardiovascular: Tachycardia, Irregularly Irregular, Other (pt has a heart rate of 160. ) GI/Abdominal: Soft, Non-Tender (Female) Exam: Deferred Rectal (Female) Exam: Deferred Back Exam: Normal Inspection Extremities: Normal Inspection Neurological: Alert, Oriented, Normal Cognition Psychiatric: Anxious Course - Vital Signs Last Recorded V/S: Last Vital Signs Temp 37.0 C 08/06/20 06:00 Pulse 74 08/06/20 06:00 Resp 20 08/06/20 06:00 BP 155/58 H 08/06/20 06:00 Pulse Ox 95 08/06/20 06:00 - Orders/Labs/Meds Orders: Active Orders 24 hr Category Date Time Status Patient Status [ADT] Routine ADT 08/05/20 09:33 Active Ambulate [RC] QID Care 08/05/20 09:33 Active Cardiac Monitoring [RC] .As Directed Care 08/05/20 09:33 Active Height and Weight [RC] DAILY Care 08/05/20 09:33 Active Intake and Output [RC] QSHIFT Care 08/05/20 09:33 Active Notify Provider Vital Signs [RC] ASDIRECTED Care 08/05/20 09:33 Active Oxygen Therapy [RC] PRN Care 08/05/20 09:33 Active RT Aerosol Therapy [RC] ASDIRECTED Care 08/05/20 09:33 Active Up With Assistance [RC] ASDIRECTED Care 08/05/20 09:33 Active Up to Chair [RC] QID Care 08/05/20 09:33 Active VTE/DVT Education [RC] Per Unit Routine Care 08/05/20 09:33 Active Vital Signs [RC] Q2H Care 08/05/20 09:33 Active PT Evaluation and Treatment [CONS] Routine Cons 08/05/20 09:33 Active 2 Gram Sodium Diet [DIET] Diet 08/05/20 Breakfast Active Acetaminophen [TylenoL] Med 08/05/20 09:33 Active 650 mg PO Q4H PRN Albuterol [Proventil Neb Soln] Med 08/05/20 09:33 Active 2.5 mg NEB Q4H PRN Metoprolol Succinate [Toprol XL] Med 08/05/20 10:30 Active 50 mg PO BID Ondansetron [Zofran] Med 08/05/20 09:33 Active 4 mg IV Q4H PRN Oxybutynin Med 08/05/20 10:30 Active 2.5 mg PO BID Potassium Chloride Med 08/05/20 10:30 Active 10 meq PO DAILY Sodium Chloride 0.9% [Saline Flush] Med 08/05/20 09:33 Active 10 ml FLUSH ASDIRECTED PRN Warfarin [Coumadin] Med 08/05/20 21:00 Active 1.5 mg PO BEDTIME amLODIPine [Norvasc] Med 08/05/20 10:30 Active 10 mg PO DAILY atorvaSTATin [Lipitor] Med 08/05/20 21:00 Active 20 mg PO BEDTIME polyethylene glycoL 3350 [MiraLAX] Med 08/05/20 09:33 Active 17 gm PO DAILY PRN Saline Lock Insert [OM.PC] Routine Oth 08/05/20 09:33 Ordered VTE Pharmacological Contraindications [AST] Per Unit Oth 08/05/20 09:33 Ordered Routine Resuscitation Status Routine Resus Stat 08/05/20 08:34 Ordered Medication Orders Acetaminophen (Tylenol) 650 mg PO Q4H PRN PRN Reason: Pain (Mild 1-3)/fever Albuterol (Proventil Neb Soln) 2.5 mg NEB Q4H PRN PRN Reason: Shortness Of Breath/wheezing Amlodipine Besylate (Norvasc) 10 mg PO DAILY [facility] Last Admin: 08/05/20 10:35 Dose: 10 mg Documented by: SUNIL Atorvastatin Calcium (Lipitor) 20 mg PO BEDTIME [facility] Last Admin: 08/05/20 20:17 Dose: 20 mg Documented by: SB Metoprolol Succinate (Toprol Xl) 50 mg PO BID [facility] Last Admin: 08/05/20 20:17 Dose: 50 mg Documented by: Admin: 08/05/20 10:36 Dose: 50 mg Documented by: SUNIL Ondansetron HCl (Zofran) 4 mg IV Q4H PRN PRN Reason: Nausea/Vomiting Oxybutynin Chloride (Oxybutynin) 2.5 mg PO BID [facility] Last Admin: 08/05/20 20:17 Dose: 2.5 mg Documented by: Admin: 08/05/20 10:34 Dose: 2.5 mg Documented by: SUNIL Polyethylene Glycol (Miralax) 17 gm PO DAILY PRN PRN Reason: Constipation Potassium Chloride (Potassium Chloride) 10 meq PO DAILY [facility] Last Admin: 08/05/20 10:37 Dose: 10 meq Documented by: SUNIL Sodium Chloride (Saline Flush) 10 ml FLUSH ASDIRECTED PRN PRN Reason: Keep Vein Open Warfarin Sodium (Coumadin) 1.5 mg PO BEDTIME [facility] Last Admin: 08/05/20 20:16 Dose: 1.5 mg Documented by: SB Labs: Laboratory Tests 08/05/20 08/05/20 08/05/20 Range/Units 04:45 04:45 04:45 WBC 14.5 H (4.5-11.0) K/uL RBC 4.21 (3.30-5.50) M/uL Hgb 12.2 (12.0-15.0) g/dL Hct 37.8 (36.0-48.0) % MCV 90 (80-98) fL MCH 29 (27-31) pg MCHC 32 (32-36) % Plt Count 294 (150-400) K/uL Neut % (Auto) 82 H (36-66) % Lymph % (Auto) 6 L (24-44) % [place] % (Auto) 9 H (2-6) % Eos % (Auto) 3 (2-4) % Baso % (Auto) 0 (0-1) % PT 21.9 H (9.5-12.0) sec INR 2.04 H (0.80-1.20) Sodium 141 (140-148) mmol/L Potassium 3.7 (3.6-5.2) mmol/L Chloride 104 (100-108) mmol/L Carbon Dioxide 23 (21-32) mmol/L Anion Gap 13.9 (5.0-14.0) mmol/L BUN 26 H D (7-18) mg/dL Creatinine 1.0 (0.6-1.0) mg/dL Est Cr Clr Drug Dosing 32.40 mL/min Estimated GFR (MDRD) 53 L (>60) Glucose 132 H (74-106) mg/dL Calcium 9.3 (8.5-10.1) mg/dL Magnesium (1.8-2.4) mg/dL Total Bilirubin 0.9 (0.2-1.0) mg/dL AST 30 (15-37) U/L ALT 32 (12-78) U/L Alkaline Phosphatase 113 (46-116) U/L Troponin I (0.000-0.056) ng/mL NT-Pro-B Natriuret Pep (5-450) pg/mL Total Protein 7.7 (6.4-8.2) g/dL Albumin 3.6 (3.4-5.0) g/dL Globulin 4.1 H (2.3-3.5) g/dL Albumin/Globulin Ratio 0.9 L (1.2-2.2) TSH, Ultra Sensitive (0.358-3.740) uIU/mL Urine Color (YELLOW) Urine Appearance (CLEAR) Urine pH (5.0-8.0) Ur Specific [place] (1.008-1.030) Urine Protein (NEGATIVE) mg/dL Urine Glucose (UA) (NEGATIVE) mg/dL Urine Ketones (NEGATIVE) mg/dL Urine Occult Blood (NEGATIVE) Urine Nitrite (NEGATIVE) Urine Bilirubin (NEGATIVE) Urine Urobilinogen (0.2-1.0) EU/dL Ur Leukocyte Esterase (NEGATIVE) Urine RBC (0-5) Urine WBC (0-5) Ur Epithelial Cells Amorphous Sediment Urine Bacteria Urine Mucus 08/05/20 08/05/20 08/05/20 Range/Units 04:45 04:45 04:45 WBC (4.5-11.0) K/uL RBC (3.30-5.50) M/uL Hgb (12.0-15.0) g/dL Hct (36.0-48.0) % MCV (80-98) fL MCH (27-31) pg MCHC (32-36) % Plt Count (150-400) K/uL Neut % (Auto) (36-66) % Lymph % (Auto) (24-44) % [place] % (Auto) (2-6) % Eos % (Auto) (2-4) % Baso % (Auto) (0-1) % PT (9.5-12.0) sec INR (0.80-1.20) Sodium (140-148) mmol/L Potassium (3.6-5.2) mmol/L Chloride (100-108) mmol/L Carbon Dioxide (21-32) mmol/L Anion Gap (5.0-14.0) mmol/L BUN (7-18) mg/dL Creatinine (0.6-1.0) mg/dL Est Cr Clr Drug Dosing mL/min Estimated GFR (MDRD) (>60) Glucose (74-106) mg/dL Calcium (8.5-10.1) mg/dL Magnesium (1.8-2.4) mg/dL Total Bilirubin (0.2-1.0) mg/dL AST (15-37) U/L ALT (12-78) U/L Alkaline Phosphatase (46-116) U/L Troponin I 0.072 H* (0.000-0.056) ng/mL NT-Pro-B Natriuret Pep 5131 H (5-450) pg/mL Total Protein (6.4-8.2) g/dL Albumin (3.4-5.0) g/dL Globulin (2.3-3.5) g/dL Albumin/Globulin Ratio (1.2-2.2) TSH, Ultra Sensitive 2.375 (0.358-3.740) uIU/mL Urine Color (YELLOW) Urine Appearance (CLEAR) Urine pH (5.0-8.0) Ur Specific [place] (1.008-1.030) Urine Protein (NEGATIVE) mg/dL Urine Glucose (UA) (NEGATIVE) mg/dL Urine Ketones (NEGATIVE) mg/dL Urine Occult Blood (NEGATIVE) Urine Nitrite (NEGATIVE) Urine Bilirubin (NEGATIVE) Urine Urobilinogen (0.2-1.0) EU/dL Ur Leukocyte Esterase (NEGATIVE) Urine RBC (0-5) Urine WBC (0-5) Ur Epithelial Cells Amorphous Sediment Urine Bacteria Urine Mucus 08/05/20 08/05/20 Range/Units 05:00 06:42 WBC (4.5-11.0) K/uL RBC (3.30-5.50) M/uL Hgb (12.0-15.0) g/dL Hct (36.0-48.0) % MCV (80-98) fL MCH (27-31) pg MCHC (32-36) % Plt Count (150-400) K/uL Neut % (Auto) (36-66) % Lymph % (Auto) (24-44) % [place] % (Auto) (2-6) % Eos % (Auto) (2-4) % Baso % (Auto) (0-1) % PT (9.5-12.0) sec INR (0.80-1.20) Sodium (140-148) mmol/L Potassium (3.6-5.2) mmol/L Chloride (100-108) mmol/L Carbon Dioxide (21-32) mmol/L Anion Gap (5.0-14.0) mmol/L BUN (7-18) mg/dL Creatinine (0.6-1.0) mg/dL Est Cr Clr Drug Dosing mL/min Estimated GFR (MDRD) (>60) Glucose (74-106) mg/dL Calcium (8.5-10.1) mg/dL Magnesium 2.1 (1.8-2.4) mg/dL Total Bilirubin (0.2-1.0) mg/dL AST (15-37) U/L ALT (12-78) U/L Alkaline Phosphatase (46-116) U/L Troponin I (0.000-0.056) ng/mL NT-Pro-B Natriuret Pep (5-450) pg/mL Total Protein (6.4-8.2) g/dL Albumin (3.4-5.0) g/dL Globulin (2.3-3.5) g/dL Albumin/Globulin Ratio (1.2-2.2) TSH, Ultra Sensitive (0.358-3.740) uIU/mL Urine Color Yellow (YELLOW) Urine Appearance Slightly cloudy A (CLEAR) Urine pH 6.0 (5.0-8.0) Ur Specific [place] 1.020 (1.008-1.030) Urine Protein Negative (NEGATIVE) mg/dL Urine Glucose (UA) Negative (NEGATIVE) mg/dL Urine Ketones Negative (NEGATIVE) mg/dL Urine Occult Blood Trace-intact H (NEGATIVE) Urine Nitrite Negative (NEGATIVE) Urine Bilirubin Negative (NEGATIVE) Urine Urobilinogen 0.2 (0.2-1.0) EU/dL Ur Leukocyte Esterase Trace H (NEGATIVE) Urine RBC 0-5 (0-5) Urine WBC 5-10 H (0-5) Ur Epithelial Cells Few Amorphous Sediment Not seen Urine Bacteria Few Urine Mucus Not seen Meds: Medications Generic Name Dose Route Start Last Admin Trade Name Freq PRN Reason Stop Dose Admin Acetaminophen 650 mg 08/05/20 09:33 Tylenol PO Q4H PRN Pain (Mild 1-3)/fever Albuterol 2.5 mg 08/05/20 09:33 Proventil Neb Soln NEB Q4H PRN Shortness Of Breath/wheezing Amlodipine Besylate 10 mg 08/05/20 10:30 08/05/20 10:35 Norvasc PO 10 mg DAILY DAVE Administration Atorvastatin Calcium 20 mg 08/05/20 21:00 08/05/20 20:17 Lipitor PO 20 mg BEDTIME DAVE Administration Metoprolol Succinate 50 mg 08/05/20 10:30 08/05/20 20:17 Toprol Xl PO 50 mg BID DAVE Administration Ondansetron HCl 4 mg 08/05/20 09:33 Zofran IV Q4H PRN Nausea/Vomiting Oxybutynin Chloride 2.5 mg 08/05/20 10:30 08/05/20 20:17 Oxybutynin PO 2.5 mg BID DAVE Administration Polyethylene Glycol 17 gm 08/05/20 09:33 Miralax PO DAILY PRN Constipation Potassium Chloride 10 meq 08/05/20 10:30 08/05/20 10:37 Potassium Chloride PO 10 meq DAILY DAVE Administration Sodium Chloride 10 ml 08/05/20 09:33 Saline Flush FLUSH ASDIRECTED PRN Keep Vein Open Warfarin Sodium 1.5 mg 08/05/20 21:00 08/05/20 20:16 Coumadin PO 1.5 mg BEDTIME DAVE Administration Discontinued Medications Generic Name Dose Route Start Last Admin Trade Name Freq PRN Reason Stop Dose Admin Diltiazem HCl 10 mg 08/05/20 04:50 08/05/20 04:55 Diltiazem IVPUSH 08/05/20 04:51 10 mg ONETIME ONE Administration Diltiazem HCl 5 mg 08/05/20 05:19 08/05/20 05:26 Diltiazem IVPUSH 08/05/20 05:20 5 mg ONETIME ONE Administration Furosemide 20 mg 08/05/20 05:38 08/05/20 05:50 Lasix IVPUSH 08/05/20 05:39 20 mg ONETIME ONE Administration Furosemide 20 mg 08/05/20 06:53 Lasix IVPUSH 08/05/20 06:54 ONETIME ONE Furosemide 40 mg 08/05/20 08:45 08/05/20 10:05 Lasix IVPUSH 08/05/20 08:46 40 mg ONETIME ONE Administration Furosemide 40 mg 08/05/20 18:00 08/05/20 18:09 Lasix IVPUSH 08/05/20 18:01 40 mg ONETIME ONE Administration Diltiazem HCl 100 mg/ Sodium 100 mls @ 5 mls/hr 08/05/20 05:00 08/05/20 07:18 Chloride IV 5 mg/hr TITRATE DAVE 5 mls/hr Titration Protocol 5 MG/HR Propofol Confirm 08/05/20 07:21 Diprivan 20 Ml Administered 08/05/20 07:22 Dose 200 mg .ROUTE .STK-MED ONE - Re-Assessments/Exams Free Text/Narrative Re-Assessment/Exam: 08/05/20 04:59 pt has a history of a aortic valve replacement and repair of the tricuspid valve. She is on coumadin therapyu. She has 2 stents. Her last episode of atrial fib was about 8-9 monthes ago. She was electrically converted at that time. Departure - Departure Time of Disposition: 06:00 Disposition: Admitted As Inpatient 65 Condition: Fair Clinical Impression: Atrial fibrillation with rapid ventricular response, CHF (congestive heart failure) Sepsis Event Note (ED) - Evaluation Sepsis Screening Result: No Definite Risk
[2020-08-05] MEDS ORDERED: Diltiazem 100 MG in Sodium Chloride 0.9% 100 ML IV SCH (05:00)
[2020-08-05] MEDS ORDERED: Furosemide 20 MG/2 ML VIAL IVPUSH ONE ×2 (05:38→06:53)
[2020-08-05] MEDS ORDERED: Propofol 200 MG/20 ML SDV ONE (07:21)
--- NOTE | 2020-08-05 07:26 | CRLCR ---
INDICATION: Atrial fibrillation TECHNIQUE. Chest portable. IMPRESSION. Previous surgery with a ligation clip on the atrial appendage. Sternotomy with aortic valve prosthesis. Very dense calcification of mitral valve anulus. Alveolar and interstitial markings at the bases with small pleural effusions suggesting some pulmonary edema. Pulmonary vascular congestion. No dense consolidation or pneumothorax. COMPARISON: 11/04/2014 Dictated by Juan M Razo MD @ Aug 05 2020 7:23AM Signed by Dr. Juan M Razo @ Aug 05 2020 7:25AM
--- NOTE | 2020-08-05 07:53 | PCM.PRNOTE ---
- Free Text/Narrative Note: Procedure note: Synchronized cardioversion Indication: Atrial fibrillation with hematocrit and soft pressures. Procedure: Informed consent was obtained for both synchronized cardioversion procedural sedation. Procedural sedation was performed by the anesthesiologist. Please review their notes for details. The patient was supine and Zoll pads were placed anterior posterior. Machine was set to synchronized cardioversion at 150 J. Once adequate anesthesia was obtained proper procedure followed in a single 150 J synchronized shock was delivered. This resulted in return to normal sinus rhythm. There were no complications. Patient recovered from sedation without incident. Normal sinus rhythm sustained and pressures normalized. Patient tolerated procedure well.
--- NOTE | 2020-08-05 08:42 | PCM.HP.2 ---
H&P History of Present Illness - General Date of Service: 08/05/20 Admit Problem/Dx: Admission Diagnosis/Problem Admission Diagnosis/Problem Diastolic congestive heart failure Source of Information: Patient, Family, Provider, RN Notes Reviewed History Limitations: Reports: No Limitations - History of Present Illness Initial Comments - Free Text/Narative: Ms. Lees is an 84-year-old woman who was admitted through the emergency department with weakness and shortness of breath secondary to diastolic congestive heart failure and paroxysmal atrial fibrillation with rapid ve ntricular response. She has a known history of diastolic congestive heart failure, recent echocardiogram showed severe diastolic CHF with preserved systolic left ventricular function. 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 Recent echocardiogram did document moderate to severe mitral regurgitation. She has known coronary artery disease and is status post previous angioplasty with stenting. Over the past week she has become progressively more short of breath with exertion and has noted a few episodes of orthopnea. She denies PND and peripheral edema. She readily admits that she has not been closely following a low-sodium diet. Became more short of breath in the title examiner hours and noted that she was experiencing palpitations. On evaluation in the emergency department she was noted to be in atrial fibrillation with rapid ventricular response. BNP was significantly elevated although we have no baseline level for comparison. Chest x-ray shows evidence of pulmonary vascular congestion. Electrical cardioversion was performed in the emergency department and she is feeling somewhat better with improvement in oxygenation and respiratory rate. Troponin level was found to be modestly elevated. - Related Data Allergies/Adverse Reactions: Allergies Allergy/AdvReac Type Severity Reaction Status Date / Time ampicillin Allergy Rash Verified 08/05/20 04:29 niacin Allergy Cannot Verified 08/05/20 04:29 Remember strawberry Allergy Cannot Verified 08/05/20 04:29 Remember Sulfa (Sulfonamide Allergy Cannot Verified 08/05/20 04:29 Antibiotics) Remember zolpidem tartrate Allergy Confusion Verified 08/05/20 04:29 [From Riccardo] Home Medications: Home Meds Calcium Carbonate/Vitamin D3 [Calcium 600 + Vit D 400] 1 tab PO DAILY 11/04/14 [History] Metoprolol Succinate [Toprol Xl] 50 mg PO BID 11/04/14 [History] Multivitamin [Multi Vitamin Daily] 1 tab PO DAILY 11/04/14 [History] amLODIPine [Norvasc] 10 mg PO DAILY 11/04/14 [History] atorvaSTATin [Lipitor] 20 mg PO BEDTIME 11/04/14 [History] Furosemide 40 mg PO DAILY 05/16/17 [History] Warfarin [Coumadin] 1 mg PO BEDTIME 05/16/17 [History] Potassium Chloride [Klor-Con 10] 10 meq PO DAILY 04/12/18 [History] Benzonatate 100 mg PO TID 10/29/19 [History] Clindamycin HCl 600 mg PO ASDIRECTED PRN 10/29/19 [History] Oxybutynin 2.5 mg PO BID 10/29/19 [History] Warfarin [Coumadin] 0.5 mg PO BEDTIME 08/05/20 [History] Past Medical History HEENT History: Reports: Impaired Vision Cardiovascular History: Reports: Afib, Heart Valve Replacement, High Cholesterol, Hypertension, [place], Stents BELT SEWER History: Reports: Musculoskeletal History: Reports: Osteoarthritis, Osteoporosis - Infectious Disease History Infectious Disease History: Reports: Chicken Pox, Measles, Mumps - Past Surgical History HEENT Surgical History: Reports: Cataract Surgery Cardiovascular Surgical History: Reports: Coronary Artery Stent, Vascular Surgery GI Surgical History: Reports: Appendectomy Social & Family History - Tobacco Use Smoking Status *Q: Former Smoker Used Tobacco, but Quit: Yes Month/Year Tobacco Last Used: 11/1998 - Caffeine Use Caffeine Use: Reports: Coffee - Recreational Drug Use Recreational Drug Use: No - Living Situation & Occupation Living situation: Reports: 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 Denies: Fever, Chills HEENT: Reports: No Symptoms Pulmonary: Reports: Shortness of Breath. Denies: Wheezing, Pleuritic Chest Pain, Cough, Sputum, Hemoptysis Cardiovascular: Reports: Palpitations, Dyspnea on Exertion, Orthopnea. Denies: Chest Pain, PND, Edema, Lightheadedness, Syncope Gastrointestinal: Reports: No Symptoms Genitourinary: Reports: No Symptoms Musculoskeletal: Reports: Joint Pain, Muscle Pain, Muscle Stiffness Skin: Reports: No Symptoms Psychiatric: Reports: No Symptoms Neurological: Reports: No Symptoms Hematologic/Lymphatic: Reports: No Symptoms Immunologic: Reports: No Symptoms Exam - Exam Exam: See Below - Vital Signs Vital Signs: Last Vital Signs Temp 99.4 F 08/05/20 06:07 Pulse 73 08/05/20 08:00 Resp 12 08/05/20 08:00 BP 145/64 H 08/05/20 08:00 Pulse Ox 96 08/05/20 08:00 Weight: 110 lb - Exam Quality Assessment: Supplemental Oxygen, DVT Prophylaxis General: Alert, Oriented, Cooperative, Mild Distress HEENT: Conjunctiva Clear, Hearing Intact, Mucosa Moist & [place], Normal Nasal Septum, Posterior Pharynx Clear, Pupils Equal Neck: Supple, Trachea Midline, +2 Carotid Pulse wo Bruit Lungs: Normal Respiratory Effort, Rales. No: Rhonchi, Wheezing Cardiovascular: Regular Rate, Regular Rhythm, Normal S1, Normal S2, Systolic Murmur. No: Diastolic Murmur GI/Abdominal Exam: Soft, Non-Tender, No Organomegaly, No Distention Back Exam: Normal Inspection, Full Range of Motion Extremities: Non-Tender, No Pedal Edema Skin: Warm, Dry, Intact Neurological: Cranial Nerves Intact, Strength Equal Bilateral, Normal Speech, Normal Tone, Sensation Intact. No: Focal Deficit Neuro Extensive - Mental Status: Alert, Oriented x3, Normal Mood/Affect, Normal Cognition, Memory Intact - Patient Data Lab Results Last 24 hrs: Laboratory Results - last 24 hr 08/05/20 08/05/20 08/05/20 Range/Units 04:45 04:45 04:45 WBC 14.5 H (4.5-11.0) K/uL RBC 4.21 (3.30-5.50) M/uL Hgb 12.2 (12.0-15.0) g/dL Hct 37.8 (36.0-48.0) % MCV 90 (80-98) fL MCH 29 (27-31) pg MCHC 32 (32-36) % Plt Count 294 (150-400) K/uL Neut % (Auto) 82 H (36-66) % Lymph % (Auto) 6 L (24-44) % [place] % (Auto) 9 H (2-6) % Eos % (Auto) 3 (2-4) % Baso % (Auto) 0 (0-1) % PT 21.9 H (9.5-12.0) sec INR 2.04 H (0.80-1.20) Sodium 141 (140-148) mmol/L Potassium 3.7 (3.6-5.2) mmol/L Chloride 104 (100-108) mmol/L Carbon Dioxide 23 (21-32) mmol/L Anion Gap 13.9 (5.0-14.0) mmol/L BUN 26 H D (7-18) mg/dL Creatinine 1.0 (0.6-1.0) mg/dL Est Cr Clr Drug Dosing 32.40 mL/min Estimated GFR (MDRD) 53 L (>60) Glucose 132 H (74-106) mg/dL Calcium 9.3 (8.5-10.1) mg/dL Magnesium (1.8-2.4) mg/dL Total Bilirubin 0.9 (0.2-1.0) mg/dL AST 30 (15-37) U/L ALT 32 (12-78) U/L Alkaline Phosphatase 113 (46-116) U/L Troponin I (0.000-0.056) ng/mL NT-Pro-B Natriuret Pep (5-450) pg/mL Total Protein 7.7 (6.4-8.2) g/dL Albumin 3.6 (3.4-5.0) g/dL Globulin 4.1 H (2.3-3.5) g/dL Albumin/Globulin Ratio 0.9 L (1.2-2.2) TSH, Ultra Sensitive (0.358-3.740) uIU/mL Urine Color (YELLOW) Urine Appearance (CLEAR) Urine pH (5.0-8.0) Ur Specific [place] (1.008-1.030) Urine Protein (NEGATIVE) mg/dL Urine Glucose (UA) (NEGATIVE) mg/dL Urine Ketones (NEGATIVE) mg/dL Urine Occult Blood (NEGATIVE) Urine Nitrite (NEGATIVE) Urine Bilirubin (NEGATIVE) Urine Urobilinogen (0.2-1.0) EU/dL Ur Leukocyte Esterase (NEGATIVE) Urine RBC (0-5) Urine WBC (0-5) Ur Epithelial Cells Amorphous Sediment Urine Bacteria Urine Mucus 08/05/20 08/05/20 08/05/20 Range/Units 04:45 04:45 04:45 WBC (4.5-11.0) K/uL RBC (3.30-5.50) M/uL Hgb (12.0-15.0) g/dL Hct (36.0-48.0) % MCV (80-98) fL MCH (27-31) pg MCHC (32-36) % Plt Count (150-400) K/uL Neut % (Auto) (36-66) % Lymph % (Auto) (24-44) % [place] % (Auto) (2-6) % Eos % (Auto) (2-4) % Baso % (Auto) (0-1) % PT (9.5-12.0) sec INR (0.80-1.20) Sodium (140-148) mmol/L Potassium (3.6-5.2) mmol/L Chloride (100-108) mmol/L Carbon Dioxide (21-32) mmol/L Anion Gap (5.0-14.0) mmol/L BUN (7-18) mg/dL Creatinine (0.6-1.0) mg/dL Est Cr Clr Drug Dosing mL/min Estimated GFR (MDRD) (>60) Glucose (74-106) mg/dL Calcium (8.5-10.1) mg/dL Magnesium (1.8-2.4) mg/dL Total Bilirubin (0.2-1.0) mg/dL AST (15-37) U/L ALT (12-78) U/L Alkaline Phosphatase (46-116) U/L Troponin I 0.072 H* (0.000-0.056) ng/mL NT-Pro-B Natriuret Pep 5131 H (5-450) pg/mL Total Protein (6.4-8.2) g/dL Albumin (3.4-5.0) g/dL Globulin (2.3-3.5) g/dL Albumin/Globulin Ratio (1.2-2.2) TSH, Ultra Sensitive 2.375 (0.358-3.740) uIU/mL Urine Color (YELLOW) Urine Appearance (CLEAR) Urine pH (5.0-8.0) Ur Specific [place] (1.008-1.030) Urine Protein (NEGATIVE) mg/dL Urine Glucose (UA) (NEGATIVE) mg/dL Urine Ketones (NEGATIVE) mg/dL Urine Occult Blood (NEGATIVE) Urine Nitrite (NEGATIVE) Urine Bilirubin (NEGATIVE) Urine Urobilinogen (0.2-1.0) EU/dL Ur Leukocyte Esterase (NEGATIVE) Urine RBC (0-5) Urine WBC (0-5) Ur Epithelial Cells Amorphous Sediment Urine Bacteria Urine Mucus 08/05/20 08/05/20 Range/Units 05:00 06:42 WBC (4.5-11.0) K/uL RBC (3.30-5.50) M/uL Hgb (12.0-15.0) g/dL Hct (36.0-48.0) % MCV (80-98) fL MCH (27-31) pg MCHC (32-36) % Plt Count (150-400) K/uL Neut % (Auto) (36-66) % Lymph % (Auto) (24-44) % [place] % (Auto) (2-6) % Eos % (Auto) (2-4) % Baso % (Auto) (0-1) % PT (9.5-12.0) sec INR (0.80-1.20) Sodium (140-148) mmol/L Potassium (3.6-5.2) mmol/L Chloride (100-108) mmol/L Carbon Dioxide (21-32) mmol/L Anion Gap (5.0-14.0) mmol/L BUN (7-18) mg/dL Creatinine (0.6-1.0) mg/dL Est Cr Clr Drug Dosing mL/min Estimated GFR (MDRD) (>60) Glucose (74-106) mg/dL Calcium (8.5-10.1) mg/dL Magnesium 2.1 (1.8-2.4) mg/dL Total Bilirubin (0.2-1.0) mg/dL AST (15-37) U/L ALT (12-78) U/L Alkaline Phosphatase (46-116) U/L Troponin I (0.000-0.056) ng/mL NT-Pro-B Natriuret Pep (5-450) pg/mL Total Protein (6.4-8.2) g/dL Albumin (3.4-5.0) g/dL Globulin (2.3-3.5) g/dL Albumin/Globulin Ratio (1.2-2.2) TSH, Ultra Sensitive (0.358-3.740) uIU/mL Urine Color Yellow (YELLOW) Urine Appearance Slightly cloudy A (CLEAR) Urine pH 6.0 (5.0-8.0) Ur Specific [place] 1.020 (1.008-1.030) Urine Protein Negative (NEGATIVE) mg/dL Urine Glucose (UA) Negative (NEGATIVE) mg/dL Urine Ketones Negative (NEGATIVE) mg/dL Urine Occult Blood Trace-intact H (NEGATIVE) Urine Nitrite Negative (NEGATIVE) Urine Bilirubin Negative (NEGATIVE) Urine Urobilinogen 0.2 (0.2-1.0) EU/dL Ur Leukocyte Esterase Trace H (NEGATIVE) Urine RBC 0-5 (0-5) Urine WBC 5-10 H (0-5) Ur Epithelial Cells Few Amorphous Sediment Not seen Urine Bacteria Few Urine Mucus Not seen Result Diagrams: 08/05/20 04:45 08/05/20 04:45 Sepsis Event Note - Evaluation Sepsis Screening Result: No Definite Risk - Focused Exam Vital Signs: Vital Signs Temp Pulse Resp BP Pulse Ox 08/05/20 08:00 73 12 145/64 H 96 08/05/20 07:19 147 H 33 H 99/71 94 L 08/05/20 06:44 143 H 34 H 113/62 96 08/05/20 06:31 150 H 29 H 145/94 H 100 08/05/20 06:07 99.4 F 147 H 31 H 129/66 95 08/05/20 05:44 121 H 122/75 08/05/20 05:14 136 H 32 H 118/71 96 08/05/20 04:59 142 H 117/58 L 93 L 08/05/20 04:53 141 H 31 H 137/73 91 L 08/05/20 04:43 88 L 08/05/20 04:32 98.4 F 164 H 31 H 174/93 H 97 *Q Meaningful Use (ADM) - VTE *Q VTE Pharmacological Contraindications *Q: High INR Value - VTE Risk Assess *Q Each Risk Factor Represents 1 Point: Congestive heart failure (CHF) Total Score 1 Point Risk Factors: 1 Each Risk Factor Represents 2 Points: None Total Score 2 Point Risk Factors: 0 Each Risk Factor Represents 3 Points: Age 75 Years or Greater Total Score 3 Point Risk Factors: 3 Each Risk Factor Represents 5 Points: None Total Score 5 Point Risk Factors: 0 Venous Thromboembolism Risk Factor Score *Q: 4 Problem List Initiated/Reviewed/Updated: Yes Orders Last 24hrs: Active Orders 24 hr Category Date Time Status Patient Status Manage Transfer [TRANSFER] Routine ADT 08/05/20 08:27 Ordered EKG Documentation Completion [RC] ASDIRECTED Care 08/05/20 05:06 Active Diltiazem [Cardizem] 100 mg Med 08/05/20 05:00 Active Sodium Chloride 0.9% [Normal Saline] 100 ml IV TITRATE Furosemide [Lasix] Med 08/05/20 08:45 Once 40 mg IVPUSH ONETIME ONE Resuscitation Status Routine Resus Stat 08/05/20 08:34 Ordered EKG 12 Lead [EK] Routine Ther 08/05/20 05:06 Ordered Medication Orders Furosemide (Lasix) 40 mg IVPUSH ONETIME ONE Stop: 08/05/20 08:46 Diltiazem HCl 100 mg/ Sodium (Chloride) 100 mls @ 5 mls/hr IV TITRATE DAVE; Protocol Last Titration: 08/05/20 07:18 Dose: 5 mg/hr, 5 mls/hr Documented by: Titration: 08/05/20 06:47 Dose: 10 mg/hr, 10 mls/hr Documented by: Admin: 08/05/20 05:01 Dose: 5 mg/hr, 5 mls/hr Documented by: ADRIANA Assessment/Plan Comment:: ASSESSMENT AND PLAN DIASTOLIC CONGESTIVE HEART FAILURE-recent echocardiogram documents severe diastolic failure. Recent history of increased shortness of breath and progressive weakness. Associated with atrial fibrillation and rapid ventricular response. Known underlying coronary artery disease, arctic valve replacement, tricuspid valve repair. -Furosemide 40 mg IV now and early evening, reassess in a.m. -2 g sodium diet ATRIAL FIBRILLATION WITH RAPID VENTRICULAR RESPONSE-she has experienced previous episodes of atrial fibrillation. She is now status post successful electrical cardioversion performed in the emergency department and is currently in sinus rhythm. -Monitor in ICU, she is at high risk for recurrent A. fib until diastolic heart failure has been managed -Magnesium level ELEVATED TROPONIN-likely secondary to demand ischemia in the setting of atrial fibrillation and diastolic congestive heart failure exacerbation -Serial troponin levels CHRONIC ANTICOAGULATION WITH WARFARIN-status post aortic valve replacement -Reassess INR in a.m. -Continue current dose of warfarin CHRONIC KIDNEY DISEASE STAGE IIIa -Closely monitor renal function and urine output MAINTENANCE ISSUES -DVT prophylaxis; current therapy with warfarin should provide adequate DVT prophylaxis -GI prophylaxis; not indicated -Hamilton catheter; not indicated -Nutrition; 2 g sodium diet -Nicotine dependence; not required CODE STATUS-DNR/DNI ADMISSION STATUS-patient will be admitted to inpatient status, expect at least a 2 night hospital stay for evaluation and management of problems as outlined above. At the time of this admission I do not reasonably expected evaluation and management of this problem will require more than a 96 hour hospital stay. DISPOSITION-anticipate discharge to home after the hospital stay. PRIMARY CARE PROVIDER-Dr. Miramontes - Mortality Measure Prognosis:: Good
[2020-08-05] MEDS ORDERED: Furosemide 40 MG/4 ML VIAL IVPUSH ONE ×2 (08:45→18:00)
[2020-08-05] MEDS ORDERED: Ondansetron 4 MG/2 ML SDV IV PRN (09:33)
[2020-08-05] MEDS ORDERED: Sodium Chloride 0.9% 10 ML Syringe FLUSH PRN (09:33)
[2020-08-05] MEDS ORDERED: Albuterol 0.083% 2.5 MG/3 ML Neb Soln NEB PRN (09:33)
[2020-08-05] MEDS ORDERED: Polyethylene Glycol 3350 Powder 17 GM Packet PO PRN (09:33)
[2020-08-05] MEDS: Oxybutynin 5 MG Tab PO SCH ×2 (10:34→20:17)
[2020-08-05] MEDS: amLODIPine 5 MG Tab PO SCH (10:35)
[2020-08-05] MEDS: Metoprolol Succinate 50 MG Tab.ER PO SCH ×2 (10:36→20:17)
[2020-08-05] MEDS: Potassium Chloride 10 MEQ Cap.ER PO SCH (10:37)
[2020-08-05] MEDS: atorvaSTATin 20 MG Tab PO SCH (20:17)
[2020-08-06] MEDS: amLODIPine 5 MG Tab PO SCH (09:00)
[2020-08-06] MEDS: Oxybutynin 5 MG Tab PO SCH ×2 (09:02→21:18)
[2020-08-06] MEDS: Potassium Chloride 10 MEQ Cap.ER PO SCH (09:03)
[2020-08-06] MEDS: Metoprolol Succinate 50 MG Tab.ER PO SCH ×2 (09:03→21:17)
--- NOTE | 2020-08-06 09:26 | PCM.PN ---
- General Info Date of Service: 08/06/20 Subjective Update: No acute events overnight. Shortness of breath is slightly better today than yesterday. She did go for a short walk and became very short of breath with activity. She has not had any chest pain or pressure. Heart rate has remained stable in the 70s and 80s. Good response to diuresis with more than 1 L net negative. Kidney function stable. No fevers. Potassium was low this morning. Functional Status: Reports: Tolerating Diet - Review of Systems General: Denies: Fever Pulmonary: Reports: Shortness of Breath Cardiovascular: Denies: Chest Pain, Edema - Patient Data Vitals - Most Recent: Last Vital Signs Temp 36.4 C 08/06/20 08:00 Pulse 84 08/06/20 09:03 Resp 21 H 08/06/20 08:00 BP 133/49 L 08/06/20 09:03 Pulse Ox 92 L 08/06/20 08:00 Weight - Most Recent: 50.621 kg I&O - Last 24 Hours: Intake & Output 08/05/20 08/06/20 08/06/20 22:59 06:59 14:59 Intake Total 360 300 Output Total 1250 250 Balance -890 50 Lab Results Last 24 Hours: Laboratory Results - last 24 hr 08/05/20 08/05/20 08/05/20 Range/Units 11:04 16:41 19:09 WBC (4.5-11.0) K/uL RBC (3.30-5.50) M/uL Hgb (12.0-15.0) g/dL Hct (36.0-48.0) % MCV (80-98) fL MCH (27-31) pg MCHC (32-36) % Plt Count (150-400) K/uL Neut % (Auto) (36-66) % Lymph % (Auto) (24-44) % [place] % (Auto) (2-6) % Eos % (Auto) (2-4) % Baso % (Auto) (0-1) % PT (9.5-12.0) sec INR (0.80-1.20) Sodium (140-148) mmol/L Potassium 3.8 (3.6-5.2) mmol/L Chloride (100-108) mmol/L Carbon Dioxide (21-32) mmol/L Anion Gap (5.0-14.0) mmol/L BUN (7-18) mg/dL Creatinine (0.6-1.0) mg/dL Est Cr Clr Drug Dosing mL/min Estimated GFR (MDRD) (>60) Glucose (74-106) mg/dL Calcium (8.5-10.1) mg/dL Magnesium (1.8-2.4) mg/dL Troponin I 0.085 H* 0.111 H* (0.000-0.056) ng/mL 08/06/20 08/06/20 08/06/20 Range/Units 04:05 04:05 04:05 WBC 9.7 (4.5-11.0) K/uL RBC 3.94 (3.30-5.50) M/uL Hgb 11.3 L (12.0-15.0) g/dL Hct 35.2 L (36.0-48.0) % MCV 89 (80-98) fL MCH 29 (27-31) pg MCHC 32 (32-36) % Plt Count 249 (150-400) K/uL Neut % (Auto) 82 H (36-66) % Lymph % (Auto) 7 L (24-44) % [place] % (Auto) 11 H (2-6) % Eos % (Auto) 0 L (2-4) % Baso % (Auto) 0 (0-1) % PT 23.0 H (9.5-12.0) sec INR 2.14 H (0.80-1.20) Sodium 142 (140-148) mmol/L Potassium 3.2 L (3.6-5.2) mmol/L Chloride 105 (100-108) mmol/L Carbon Dioxide 26 (21-32) mmol/L Anion Gap 14.2 H (5.0-14.0) mmol/L BUN 18 (7-18) mg/dL Creatinine 0.9 (0.6-1.0) mg/dL Est Cr Clr Drug Dosing 36.52 mL/min Estimated GFR (MDRD) 60 (>60) Glucose 112 H (74-106) mg/dL Calcium 8.5 (8.5-10.1) mg/dL Magnesium 1.8 (1.8-2.4) mg/dL Troponin I (0.000-0.056) ng/mL 08/06/20 Range/Units 04:05 WBC (4.5-11.0) K/uL RBC (3.30-5.50) M/uL Hgb (12.0-15.0) g/dL Hct (36.0-48.0) % MCV (80-98) fL MCH (27-31) pg MCHC (32-36) % Plt Count (150-400) K/uL Neut % (Auto) (36-66) % Lymph % (Auto) (24-44) % [place] % (Auto) (2-6) % Eos % (Auto) (2-4) % Baso % (Auto) (0-1) % PT (9.5-12.0) sec INR (0.80-1.20) Sodium (140-148) mmol/L Potassium (3.6-5.2) mmol/L Chloride (100-108) mmol/L Carbon Dioxide (21-32) mmol/L Anion Gap (5.0-14.0) mmol/L BUN (7-18) mg/dL Creatinine (0.6-1.0) mg/dL Est Cr Clr Drug Dosing mL/min Estimated GFR (MDRD) (>60) Glucose (74-106) mg/dL Calcium (8.5-10.1) mg/dL Magnesium (1.8-2.4) mg/dL Troponin I 0.096 H* (0.000-0.056) ng/mL Med Orders - Current: Current Medications Acetaminophen (Tylenol) 650 mg PO Q4H PRN PRN Reason: Pain (Mild 1-3)/fever Albuterol (Proventil Neb Soln) 2.5 mg NEB Q4H PRN PRN Reason: Shortness Of Breath/wheezing Amlodipine Besylate (Norvasc) 10 mg PO DAILY [facility] Last Admin: 08/06/20 09:00 Dose: 10 mg Documented by: Atorvastatin Calcium (Lipitor) 20 mg PO BEDTIME [facility] Last Admin: 08/05/20 20:17 Dose: 20 mg Documented by: Metoprolol Succinate (Toprol Xl) 50 mg PO BID [facility] Last Admin: 08/06/20 09:03 Dose: 50 mg Documented by: Ondansetron HCl (Zofran) 4 mg IV Q4H PRN PRN Reason: Nausea/Vomiting Oxybutynin Chloride (Oxybutynin) 2.5 mg PO BID [facility] Last Admin: 08/06/20 09:02 Dose: 2.5 mg Documented by: Polyethylene Glycol (Miralax) 17 gm PO DAILY PRN PRN Reason: Constipation Potassium Chloride (Potassium Chloride) 10 meq PO DAILY [facility] Last Admin: 08/06/20 09:03 Dose: 10 meq Documented by: Sodium Chloride (Saline Flush) 10 ml FLUSH ASDIRECTED PRN PRN Reason: Keep Vein Open Warfarin Sodium (Coumadin) 1.5 mg PO BEDTIME [facility] Last Admin: 08/05/20 20:16 Dose: 1.5 mg Documented by: Discontinued Medications Diltiazem HCl (Diltiazem) 10 mg IVPUSH ONETIME ONE Stop: 08/05/20 04:51 Last Admin: 08/05/20 04:55 Dose: 10 mg Documented by: Diltiazem HCl (Diltiazem) 5 mg IVPUSH ONETIME ONE Stop: 08/05/20 05:20 Last Admin: 08/05/20 05:26 Dose: 5 mg Documented by: Furosemide (Lasix) 20 mg IVPUSH ONETIME ONE Stop: 08/05/20 05:39 Last Admin: 08/05/20 05:50 Dose: 20 mg Documented by: Furosemide (Lasix) 20 mg IVPUSH ONETIME ONE Stop: 08/05/20 06:54 Furosemide (Lasix) 40 mg IVPUSH ONETIME ONE Stop: 08/05/20 08:46 Last Admin: 08/05/20 10:05 Dose: 40 mg Documented by: Furosemide (Lasix) 40 mg IVPUSH ONETIME ONE Stop: 08/05/20 18:01 Last Admin: 08/05/20 18:09 Dose: 40 mg Documented by: Diltiazem HCl 100 mg/ Sodium (Chloride) 100 mls @ 5 mls/hr IV TITRATE [facility]; Protocol Last Titration: 08/05/20 07:18 Dose: 5 mg/hr, 5 mls/hr Documented by: Propofol (Diprivan 20 Ml) Confirm Administered Dose 200 mg .ROUTE .STK-MED ONE Stop: 08/05/20 07:22 - Exam Quality Assessment: Supplemental Oxygen General: Alert, Oriented, Cooperative, No Acute Distress Neck: JVD Lungs: Normal Respiratory Effort, Crackles (rare both bases) Cardiovascular: Regular Rate, Irregular Rhythm, Murmurs, Gallops GI/Abdominal Exam: Soft, No Distention Extremities: No Pedal Edema. No: Increased Warmth Skin: Warm, Dry Psy/Mental Status: Alert, Normal Affect Sepsis Event Note - Evaluation Sepsis Screening Result: No Definite Risk - Focused Exam Vital Signs: Vital Signs Temp Pulse Pulse Resp BP BP Pulse Ox 08/06/20 09:03 84 133/49 L 08/06/20 09:00 133/49 L 08/06/20 08:00 36.4 C 78 21 H 150/87 H 92 L 08/06/20 06:00 37.0 C 74 20 155/58 H 95 08/06/20 04:00 69 18 134/46 L 95 08/06/20 02:00 73 18 133/60 94 L 08/06/20 00:00 78 15 153/63 H 98 08/05/20 22:00 85 23 H 141/72 H 97 - Problem List Review Problem List Initiated/Reviewed/Updated: Yes - My Orders Last 24 Hours: My Active Orders 08/06/20 09:30 Furosemide [Lasix] 40 mg IVPUSH DAILY Potassium Chloride [Klor-Con M20] 40 meq PO BID 08/06/20 16:00 Furosemide [Lasix] 40 mg IVPUSH ONETIME ONE 08/07/20 05:00 BASIC METABOLIC PANEL,BMP [CHEM] Timed INR,PT,PROTHROMBIN TIME [COAG] Timed TROPONIN I [CHEM] Timed - Plan Plan:: ASSESSMENT AND PLAN DIASTOLIC CONGESTIVE HEART FAILURE (HFpEF)-recent echocardiogram documents severe diastolic failure. Good response to diuresis yesterday. Still hypoxic. Still has JVD. -Furosemide 40 mg IV now and later this afternoon, reassess in a.m. -Continue beta-brittany -Consider DORIS inhibitor -2 g sodium diet ATRIAL FIBRILLATION WITH RAPID VENTRICULAR RESPONSE-she appears to be in sinus rhythm with frequent PACs at this time. Hopefully managing the heart failure will improve cardiac irritability and keep her in sinus. -Monitor in ICU, she is at high risk for recurrent A. fib until diastolic heart failure has been managed -Continue beta-brittany and anticoagulation ELEVATED TROPONIN-likely secondary to demand ischemia in the setting of atrial fibrillation and diastolic congestive heart failure exacerbation. Level has been trending down after slight rise. -Repeat level in the morning CHRONIC ANTICOAGULATION WITH WARFARIN-status post aortic valve replacement -Reassess INR in a.m. -Continue current dose of warfarin CHRONIC KIDNEY DISEASE STAGE IIIa-stable so far. -Closely monitor renal function and urine output MAINTENANCE ISSUES -DVT prophylaxis; current therapy with warfarin should provide adequate DVT prophylaxis -GI prophylaxis; not indicated -Hamilton catheter; not indicated -Nutrition; 2 g sodium diet DISPOSITION-anticipate discharge to home after the hospital stay. Kobe Garcia MD
[2020-08-06] MEDS: Potassium Chloride 20 MEQ Tab.ER PO SCH ×2 (09:51→21:18)
[2020-08-06] MEDS: Furosemide 40 MG/4 ML VIAL IVPUSH SCH (09:52)
[2020-08-06] MEDS ORDERED: Furosemide 40 MG/4 ML VIAL IVPUSH ONE (16:00)
[2020-08-06] MEDS: Acetaminophen 325 MG Tab PO PRN (16:13)
[2020-08-06] MEDS: atorvaSTATin 20 MG Tab PO SCH (21:18)
[2020-08-07] MEDS: Potassium Chloride 20 MEQ Tab.ER PO SCH ×2 (08:20→20:55)
[2020-08-07] MEDS: Furosemide 40 MG/4 ML VIAL IVPUSH SCH (08:21)
[2020-08-07] MEDS: Metoprolol Succinate 50 MG Tab.ER PO SCH (08:23)
[2020-08-07] MEDS: Potassium Chloride 10 MEQ Cap.ER PO SCH (08:24)
[2020-08-07] MEDS: amLODIPine 5 MG Tab PO SCH (08:24)
[2020-08-07] MEDS: Oxybutynin 5 MG Tab PO SCH ×2 (08:25→20:56)
--- NOTE | 2020-08-07 09:15 | PCM.PN ---
- General Info Date of Service: 08/07/20 Subjective Update: No acute events overnight. Patient reports she did not sleep very well. She does not feel dramatically different today but was able to walk a little further and was less short of breath. She is off oxygen and has normal oxygen saturations at rest but was slightly hypoxic after her walk. No complaints of chest pain. She had a good response to diuresis with more than 1 L net negative again yesterday. Weight is down only slightly from admission but clinically she is doing better. No complaints of nausea. Appetite has been good. Functional Status: Reports: Pain Controlled, Tolerating Diet - Review of Systems General: Reports: Weakness Pulmonary: Reports: Shortness of Breath Cardiovascular: Denies: Chest Pain - Patient Data Vitals - Most Recent: Last Vital Signs Temp 35.6 C L 08/06/20 20:00 Pulse 72 08/07/20 08:23 Resp 20 08/07/20 06:00 BP 121/47 L 08/07/20 08:24 Pulse Ox 98 08/07/20 06:00 Weight - Most Recent: 50.621 kg I&O - Last 24 Hours: Intake & Output 08/06/20 08/07/20 08/07/20 22:59 06:59 14:59 Output Total 300 Balance -300 Lab Results Last 24 Hours: Laboratory Results - last 24 hr 08/07/20 08/07/20 Range/Units 05:55 05:55 PT 28.2 H (9.5-12.0) sec INR 2.64 H (0.80-1.20) Sodium 140 (140-148) mmol/L Potassium 4.0 (3.6-5.2) mmol/L Chloride 105 (100-108) mmol/L Carbon Dioxide 27 (21-32) mmol/L Anion Gap 8.0 (5.0-14.0) mmol/L BUN 19 H (7-18) mg/dL Creatinine 0.9 (0.6-1.0) mg/dL Est Cr Clr Drug Dosing 36.52 mL/min Estimated GFR (MDRD) 60 (>60) Glucose 113 H (74-106) mg/dL Calcium 8.4 L (8.5-10.1) mg/dL Troponin I 0.033 (0.000-0.056) ng/mL Med Orders - Current: Current Medications Acetaminophen (Tylenol) 650 mg PO Q4H PRN PRN Reason: Pain (Mild 1-3)/fever Last Admin: 08/06/20 16:13 Dose: 650 mg Documented by: Albuterol (Proventil Neb Soln) 2.5 mg NEB Q4H PRN PRN Reason: Shortness Of Breath/wheezing Amlodipine Besylate (Norvasc) 10 mg PO DAILY [facility] Last Admin: 08/07/20 08:24 Dose: 10 mg Documented by: Atorvastatin Calcium (Lipitor) 20 mg PO BEDTIME [facility] Last Admin: 08/06/20 21:18 Dose: 20 mg Documented by: Furosemide (Lasix) 40 mg IVPUSH DAILY [facility] Last Admin: 08/07/20 08:21 Dose: 40 mg Documented by: Metoprolol Tartrate (Lopressor) 50 mg PO BID [facility] Ondansetron HCl (Zofran) 4 mg IV Q4H PRN PRN Reason: Nausea/Vomiting Oxybutynin Chloride (Oxybutynin) 2.5 mg PO BID [facility] Last Admin: 08/07/20 08:25 Dose: 2.5 mg Documented by: Polyethylene Glycol (Miralax) 17 gm PO DAILY PRN PRN Reason: Constipation Potassium Chloride (Potassium Chloride) 10 meq PO DAILY [facility] Last Admin: 08/07/20 08:24 Dose: 10 meq Documented by: Potassium Chloride (Klor-Con M20) 40 meq PO BID [facility] Last Admin: 08/07/20 08:20 Dose: 40 meq Documented by: Sodium Chloride (Saline Flush) 10 ml FLUSH ASDIRECTED PRN PRN Reason: Keep Vein Open Warfarin Sodium (Coumadin) 1.5 mg PO BEDTIME [facility] Last Admin: 08/06/20 21:18 Dose: 1.5 mg Documented by: Discontinued Medications Diltiazem HCl (Diltiazem) 10 mg IVPUSH ONETIME ONE Stop: 08/05/20 04:51 Last Admin: 08/05/20 04:55 Dose: 10 mg Documented by: Diltiazem HCl (Diltiazem) 5 mg IVPUSH ONETIME ONE Stop: 08/05/20 05:20 Last Admin: 08/05/20 05:26 Dose: 5 mg Documented by: Furosemide (Lasix) 20 mg IVPUSH ONETIME ONE Stop: 08/05/20 05:39 Last Admin: 08/05/20 05:50 Dose: 20 mg Documented by: Furosemide (Lasix) 20 mg IVPUSH ONETIME ONE Stop: 08/05/20 06:54 Furosemide (Lasix) 40 mg IVPUSH ONETIME ONE Stop: 08/05/20 08:46 Last Admin: 08/05/20 10:05 Dose: 40 mg Documented by: Furosemide (Lasix) 40 mg IVPUSH ONETIME ONE Stop: 08/05/20 18:01 Last Admin: 08/05/20 18:09 Dose: 40 mg Documented by: Furosemide (Lasix) 40 mg IVPUSH ONETIME ONE Stop: 08/06/20 16:01 Last Admin: 08/06/20 15:24 Dose: 40 mg Documented by: Diltiazem HCl 100 mg/ Sodium (Chloride) 100 mls @ 5 mls/hr IV TITRATE [facility]; Protocol Last Titration: 08/05/20 07:18 Dose: 5 mg/hr, 5 mls/hr Documented by: Metoprolol Succinate (Toprol Xl) 50 mg PO BID [facility] Stop: 08/07/20 09:01 Last Admin: 08/07/20 08:23 Dose: 50 mg Documented by: Propofol (Diprivan 20 Ml) Confirm Administered Dose 200 mg .ROUTE .STK-MED ONE Stop: 08/05/20 07:22 - Exam Quality Assessment: No: Supplemental Oxygen General: Alert, Oriented, Cooperative, No Acute Distress Lungs: Normal Respiratory Effort, Crackles (few both bases) Cardiovascular: Regular Rate, Regular Rhythm, Murmurs, Gallops GI/Abdominal Exam: Soft, No Distention Extremities: No Pedal Edema. No: Increased Warmth Skin: Warm, Dry Psy/Mental Status: Alert, Normal Affect Sepsis Event Note - Evaluation Sepsis Screening Result: No Definite Risk - Focused Exam Vital Signs: Vital Signs Pulse Pulse Resp BP BP Pulse Ox 08/07/20 08:24 121/47 L 08/07/20 08:23 72 121/47 L 08/07/20 06:00 102 H 20 142/57 H 98 08/07/20 04:00 78 17 96 08/07/20 02:00 15 139/61 98 08/07/20 00:00 11 L 132/68 96 08/06/20 22:00 13 126/74 98 09/07/20 21:17 57 L 138/52 L - Problem List Review Problem List Initiated/Reviewed/Updated: Yes - My Orders Last 24 Hours: My Active Orders 08/06/20 10:00 Furosemide [Lasix] 40 mg IVPUSH DAILY Potassium Chloride [Klor-Con M20] 40 meq PO BID 08/07/20 09:12 Transfer Patient (Change bed) [ADT] Routine 08/07/20 09:13 PT Evaluation and Treatment [CONS] Routine 08/07/20 21:00 Warfarin [Coumadin] 1 mg PO BEDTIME 08/08/20 05:00 BASIC METABOLIC PANEL,BMP [CHEM] Timed INR,PT,PROTHROMBIN TIME [COAG] Timed - Plan Plan:: ASSESSMENT AND PLAN DIASTOLIC CONGESTIVE HEART FAILURE (HFpEF)-recent echocardiogram documents severe diastolic failure. Good response to diuresis again. Off oxygen this morning but slightly hypoxic with activity. JVD has improved but is still elevated. -Furosemide 40 mg IV twice today -Continue beta-brittany -Consider DORIS inhibitor once more euvolemic -2 g sodium diet ATRIAL FIBRILLATION WITH RAPID VENTRICULAR RESPONSE-she has remained in sinus rhythm. -Discontinue cardiac monitoring -Continue beta-brittany and anticoagulation ELEVATED TROPONIN-likely secondary to demand ischemia in the setting of atrial fibrillation and diastolic congestive heart failure exacerbation. Level is now normal. CHRONIC ANTICOAGULATION WITH WARFARIN-status post aortic valve replacement -Reassess INR in a.m. -Continue current dose of warfarin CHRONIC KIDNEY DISEASE STAGE IIIa-stable during diuresis. -Closely monitor renal function and urine output MAINTENANCE ISSUES -DVT prophylaxis; warfarin -GI prophylaxis; not indicated -Hamilton catheter; not indicated -Nutrition; 2 g sodium diet DISPOSITION-anticipate discharge to home with home care after the hospital stay. Kobe Garcia MD
[2020-08-07] MEDS ORDERED: Furosemide 40 MG/4 ML VIAL IVPUSH ONE (15:00)
[2020-08-07] MEDS: Acetaminophen 325 MG Tab PO PRN (15:18)
[2020-08-07] MEDS: Metoprolol Tartrate 50 MG Tab PO SCH (20:56)
[2020-08-07] MEDS: atorvaSTATin 20 MG Tab PO SCH (20:56)
[2020-08-08] MEDS ORDERED: Furosemide 40 MG/4 ML VIAL IVPUSH SCH (08:00)
[2020-08-08] MEDS: Potassium Chloride 20 MEQ Tab.ER PO SCH (08:04)
[2020-08-08] MEDS: Oxybutynin 5 MG Tab PO SCH (08:04)
[2020-08-08] MEDS: amLODIPine 5 MG Tab PO SCH (08:04)
[2020-08-08] MEDS: Potassium Chloride 10 MEQ Cap.ER PO SCH (08:05)
[2020-08-08] MEDS: Metoprolol Tartrate 50 MG Tab PO SCH (08:05)
[2020-08-08 10:41] VITALS: BP 132/46; PULSE 67
--- NOTE | 2020-08-08 11:10 | PCM.DCSUM1 ---
Discharge Summary - Hospital Course Brief History: 84-year-old female with history of paroxysmal atrial fibrillation and diastolic congestive heart failure who presented with progressive dyspnea on exertion, orthopnea and episodes of chest pressure. She was admitted for management of atrial fibrillation with a rapid ventricular response and decompensated diastolic congestive heart failure. Diagnosis: Stroke: No - Discharge Data Discharge Date: 08/08/20 Discharge Disposition: Home, W Home Health Agency 06 Condition: Good - Referral to Home Health Date of Face to Face Encounter: 08/08/20 Reason for Homebound Status: acute weakness, dyspnea with exertion Primary Care Physician: Yovany Miramontes MD Skilled Need: nursing and PT - Discharge Diagnosis/Problem(s) (1) Acute on chronic heart failure with preserved ejection fraction (HFpEF) SNOMED Code(s): 584074674, 735195504 ICD Code: I50.33 - ACUTE ON CHRONIC DIASTOLIC (CONGESTIVE) HEART FAILURE Status: Acute (2) Atrial fibrillation with RVR SNOMED Code(s): 041818480750796 ICD Code: I48.91 - UNSPECIFIED ATRIAL FIBRILLATION Status: Acute (3) PMR (polymyalgia rheumatica) SNOMED Code(s): 93668698 ICD Code: M35.3 - POLYMYALGIA RHEUMATICA Status: Chronic - Patient Summary/Data Consults: Consultations 08/07/20 09:13 PT Evaluation and Treatment [CONS] Routine Please Evaluate and Treat. PT Reason for Consult: Strengthening This query below is only for informational purposes and is not editable. Admission Diagnosis/Problem: Diastolic congestive heart failure 08/08/20 10:02 Consult to Dietary [Consult to Crm Coordinator] [CONS] Routine Comment: Physician Instructions: Quantity: Reason for Consult: CHF education Hospital Course: Yu presented to the emergency room with a couple of weeks of progressive dyspnea, orthopnea and episodes of chest pressure. Work-up in the emergency room was consistent with an exacerbation of her congestive heart failure with pulmonary edema noted on chest x-ray and examination. She was also in atrial fibrillation with a rapid ventricular response. Given the severity of her symptoms at presentation she was cardioverted in the emergency room with return to a normal sinus rhythm. She received IV diuretics and was admitted to the hospital for further management. Initially she was placed in the intensive care unit with concern that the atrial fibrillation may recur. She was monitored with cardiac monitoring and heart failure was managed. She remained stable and made improvements over the course of the hospital stay. She had a good response to diuresis with a slow but steady trend towards improvement. During that first portion of the hospital stay she was hypoxic and required oxygen 24 hours of the day. Slowly this was able to be weaned down and eventually discontinued. Her symptoms have improved with the diuresis. Her functional status has improved with diuresis. Her kidney function has remained stable. She has not had a recurrence of the atrial fibrillation and she has had a sinus rhythm with a normal rate since admission to the hospital. At the time of discharge I believe we have her volume status at a good spot. I did increase her furosemide from 40 once a day to 40 twice a day because of the decompensation on that dose. We reviewed the importance of keeping track of salt and provided information about diastolic congestive heart failure for her and her family to review. She did have intermittent hypokalemia but this did improve with supplementation. Her INR has remained therapeutic. She is stable and safe for discharge. She was interested in home care to provide nursing and physical therapy services. She will be discharged home with the help of her daughter. She does have early follow-up scheduled with her primary care. - Patient Instructions Diet: Heart Healthy Diet Activity: As Tolerated Showering/Bathing: May Shower Notify Provider of: Fever, Increased Pain, Nausea and/or Vomiting Other/Special Instructions: 1. You were in the hospital for management of acute on chronic diastolic congestive heart failure. Diastolic heart failure also known as heart failure with preserved ejection fraction (HFpEF) starts when your heart muscle becomes thick and stiff over the years. This makes it difficult for your heart to relax and fluid can build up in your cardiovascular system. Your condition has been improving with diuretic therapy. At this point I think your volume status is optimal. I do recommend that you increase your furosemide (Lasix) from 40 mg once a day to 40 mg twice a day. You should take 1 tablet around 7 or 8 in the morning and the second one about 2 PM. 2. Continue your other home medications as previously prescribed. 3. Follow up as scheduled with Dr. Miramontes tomorrow you should have your potassium level checked next week. 4. I have placed a referral to home health care. They will help ease your transition home by providing nursing and physical therapy services. You will be due for an INR check on 08/10. - Discharge Plan *PRESCRIPTION DRUG MONITORING PROGRAM REVIEWED*: Not Applicable *COPY OF PRESCRIPTION DRUG MONITORING REPORT IN PATIENT JB: Not Applicable Prescriptions/Med Rec: Furosemide 40 mg PO BID #60 tablet Home Medications: Home Meds Calcium Carbonate/Vitamin D3 [Calcium 600 + Vit D 400] 1 tab PO DAILY 11/04/14 [History] Multivitamin [Multi-Vitamin Daily] 1 tab PO DAILY 11/04/14 [History] amLODIPine [Norvasc] 10 mg PO DAILY 11/04/14 [History] atorvaSTATin [Lipitor] 20 mg PO BEDTIME 11/04/14 [History] Warfarin [Coumadin] 1 mg PO S[facility]UTHFRSA@209905/16/17 [History] Potassium Chloride [Klor-Con 10] 10 meq PO DAILY 04/12/18 [History] Benzonatate 100 mg PO TID 10/29/19 [History] Clindamycin HCl 600 mg PO ASDIRECTED PRN 10/29/19 [History] Oxybutynin 2.5 mg PO BID 10/29/19 [History] Warfarin [Coumadin] 0.5 mg PO MOWE@209908/05/20 [History] Metoprolol Tartrate 50 mg PO BID 08/07/20 [History] Furosemide 40 mg PO BID #60 tablet 08/08/20 [Rx] Oxygen Therapy Mode: Room Air Patient Handouts: Heart Failure, Diagnosis, Heart Failure Eating Plan Referrals: Yovany Miramontes MD [Primary Care Provider] - (f/u as scheduled tomorrow ) - Discharge Summary/Plan Comment DC Time >30 min.: Yes (35-coordinating home care, heart failure education) - Patient Data Vitals - Most Recent: Last Vital Signs Temp 36.8 C 08/08/20 10:38 Pulse 67 08/08/20 10:38 Resp 18 08/08/20 10:38 BP 132/46 L 08/08/20 10:38 Pulse Ox 93 L 08/08/20 10:38 Weight - Most Recent: 50.621 kg I&O - Last 24 hours: Intake & Output 08/07/20 08/08/20 08/08/20 22:59 06:59 14:59 Intake Total 700 360 Output Total 800 200 Balance -100 160 Lab Results - Last 24 hrs: Laboratory Results - last 24 hr 08/08/20 08/08/20 Range/Units 04:00 04:00 PT 29.5 H (9.5-12.0) sec INR 2.76 H (0.80-1.20) Sodium 140 (140-148) mmol/L Potassium 4.5 (3.6-5.2) mmol/L Chloride 105 (100-108) mmol/L Carbon Dioxide 24 (21-32) mmol/L Anion Gap 10.7 (5.0-14.0) mmol/L BUN 17 (7-18) mg/dL Creatinine 0.9 (0.6-1.0) mg/dL Est Cr Clr Drug Dosing 36.52 mL/min Estimated GFR (MDRD) 60 (>60) Glucose 115 H (74-106) mg/dL Calcium 8.8 (8.5-10.1) mg/dL Med Orders - Current: Current Medications Acetaminophen (Tylenol) 650 mg PO Q4H PRN PRN Reason: Pain (Mild 1-3)/fever Last Admin: 08/07/20 15:18 Dose: 650 mg Documented by: Albuterol (Proventil Neb Soln) 2.5 mg NEB Q4H PRN PRN Reason: Shortness Of Breath/wheezing Amlodipine Besylate (Norvasc) 10 mg PO DAILY [facility] Last Admin: 08/08/20 08:04 Dose: 10 mg Documented by: Atorvastatin Calcium (Lipitor) 20 mg PO BEDTIME [facility] Last Admin: 08/07/20 20:56 Dose: 20 mg Documented by: Furosemide (Lasix) 40 mg IVPUSH DAILY@0800 [facility] Last Admin: 08/08/20 08:07 Dose: 40 mg Documented by: Metoprolol Tartrate (Lopressor) 50 mg PO BID [facility] Last Admin: 08/08/20 08:05 Dose: 50 mg Documented by: Ondansetron HCl (Zofran) 4 mg IV Q4H PRN PRN Reason: Nausea/Vomiting Oxybutynin Chloride (Oxybutynin) 2.5 mg PO BID [facility] Last Admin: 08/08/20 08:04 Dose: 2.5 mg Documented by: Polyethylene Glycol (Miralax) 17 gm PO DAILY PRN PRN Reason: Constipation Potassium Chloride (Potassium Chloride) 10 meq PO DAILY [facility] Last Admin: 08/08/20 08:05 Dose: 10 meq Documented by: Potassium Chloride (Klor-Con M20) 40 meq PO BID [facility] Last Admin: 08/08/20 08:04 Dose: 40 meq Documented by: Sodium Chloride (Saline Flush) 10 ml FLUSH ASDIRECTED PRN PRN Reason: Keep Vein Open Warfarin Sodium (Coumadin) 1 mg PO BEDTIME [facility] Last Admin: 08/07/20 20:55 Dose: 1 mg Documented by: Discontinued Medications Diltiazem HCl (Diltiazem) 10 mg IVPUSH ONETIME ONE Stop: 08/05/20 04:51 Last Admin: 08/05/20 04:55 Dose: 10 mg Documented by: Diltiazem HCl (Diltiazem) 5 mg IVPUSH ONETIME ONE Stop: 08/05/20 05:20 Last Admin: 08/05/20 05:26 Dose: 5 mg Documented by: Furosemide (Lasix) 20 mg IVPUSH ONETIME ONE Stop: 08/05/20 05:39 Last Admin: 08/05/20 05:50 Dose: 20 mg Documented by: Furosemide (Lasix) 20 mg IVPUSH ONETIME ONE Stop: 08/05/20 06:54 Last Admin: 08/08/20 05:41 Dose: Not Given Documented by: Furosemide (Lasix) 40 mg IVPUSH ONETIME ONE Stop: 08/05/20 08:46 Last Admin: 08/05/20 10:05 Dose: 40 mg Documented by: Furosemide (Lasix) 40 mg IVPUSH ONETIME ONE Stop: 08/05/20 18:01 Last Admin: 08/05/20 18:09 Dose: 40 mg Documented by: Furosemide (Lasix) 40 mg IVPUSH ONETIME ONE Stop: 08/06/20 16:01 Last Admin: 08/06/20 15:24 Dose: 40 mg Documented by: Furosemide (Lasix) 40 mg IVPUSH DAILY [facility] Last Admin: 08/07/20 08:21 Dose: 40 mg Documented by: Furosemide (Lasix) 40 mg IVPUSH ONETIME ONE Stop: 08/07/20 15:01 Last Admin: 08/07/20 15:07 Dose: 40 mg Documented by: Diltiazem HCl 100 mg/ Sodium (Chloride) 100 mls @ 5 mls/hr IV TITRATE [facility]; Protocol Last Titration: 08/05/20 07:18 Dose: 5 mg/hr, 5 mls/hr Documented by: Metoprolol Succinate (Toprol Xl) 50 mg PO BID [facility] Stop: 08/07/20 09:01 Last Admin: 08/07/20 08:23 Dose: 50 mg Documented by: Propofol (Diprivan 20 Ml) Confirm Administered Dose 200 mg .ROUTE .STK-MED ONE Stop: 08/05/20 07:22 Warfarin Sodium (Coumadin) 1.5 mg PO BEDTIME [facility] Last Admin: 08/06/20 21:18 Dose: 1.5 mg Documented by: *Q Meaningful Use (DIS) - VTE *Q VTE Pharmacological Contraindications *Q: High INR Value
== END 2020-08-08 14:13 | disposition home health service (06) | DRG 291 ==
LOC: JP.ED 04:19 → JP.ICU 09:00 → JP.MS 08-07 11:27
PROVIDERS: ADMIT Hospitalist; ATTEND Internal Medicine
PROC: 5A2204Z Restoration of Cardiac Rhythm, Single (ICD-10-PCS; principal; 2020-08-05)
DX: I13.0 Hypertensive heart and chronic kidney disease with heart failure and stage 1 through stage 4 chronic kidney disease, or unspecified chronic kidney disease (principal); I50.33 Acute on chronic diastolic (congestive) heart failure; I24.8 Other forms of acute ischemic heart disease; I48.91 Unspecified atrial fibrillation; M35.3 Polymyalgia rheumatica; N18.3 Chronic kidney disease, stage 3 (moderate); Z66 Do not resuscitate; E87.6 Hypokalemia; I50.9 Heart failure, unspecified; Z95.2 Presence of prosthetic heart valve; Z95.5 Presence of coronary angioplasty implant and graft; Z90.49 Acquired absence of other specified parts of digestive tract; Z88.0 Allergy status to penicillin; H54.7 Unspecified visual loss; E78.00 Pure hypercholesterolemia, unspecified; I25.2 Old myocardial infarction; I11.0 Hypertensive heart disease with heart failure; M19.90 Unspecified osteoarthritis, unspecified site; M81.0 Age-related osteoporosis without current pathological fracture; Z98.49 Cataract extraction status, unspecified eye; Z98.890 Other specified postprocedural states; Z87.891 Personal history of nicotine dependence; Z88.1 Allergy status to other antibiotic agents; Z88.2 Allergy status to sulfonamides; Z88.8 Allergy status to other drugs, medicaments and biological substances; Z91.018 Allergy to other foods; Z79.01 Long term (current) use of anticoagulants; Z79.899 Other long term (current) drug therapy
CPT/HCPCS: 36415; 71045; 80053; 81001; 83735; 83880; 84443; 84484; 85025; 85610; 93005 ×2; 96365; 96366; 96375; 96376; 99285 ×2; J1940; J2704; J3490 ×3; J7050; 80048; 84132; 93010; 97110-GP; 97161-GP; 97530-GP; 99222-AI; 99232; 99239; A9270-GY

== ENCOUNTER 2020-08-26 04:30 | Emergency (ER) | payer MEDICARE, OTHER ==
[2020-08-26] MEDS ORDERED: Sodium Chloride 0.9% 10 ML Syringe FLUSH PRN (04:59)
[2020-08-26] MEDS ORDERED: Diltiazem 25 MG/5 ML SDV IVPUSH ONE (04:59)
[2020-08-26] MEDS ORDERED: Sodium Chloride 0.9% 1,000 ML IV SCH (05:00)
--- NOTE | 2020-08-26 05:08 | EDM.PDOC ---
<OfficerVipin - Last Filed: 08/26/20 06:25> ED HPI GENERAL MEDICAL PROBLEM - General Chief Complaint: Cardiovascular Problem Stated Complaint: SOB Time Seen by Provider: 08/26/20 04:57 Source of Information: Reports: Patient, Family, Old Records, RN Notes Reviewed History Limitations: Reports: No Limitations - History of Present Illness INITIAL COMMENTS - FREE TEXT/NARRATIVE: 84-year-old female presents emergency department a complaint of shortness of breath and palpitations, she has known history of diastolic congestive heart failure as well as paroxysmal atrial fibrillation. She states she was feeling well last night and then sometime early this morning started develop some chest discomfort felt palpitations and increasingly short of breath. She was recently admitted to hospital around the first part of the month with exacerbation of CHF atrial fibrillation with rapid ventricular response she was cardioverted in the emergency department last time admitted to the hospital for fluid overload. She has had one prior cardioversion about 9 months ago, she is anticoagulated on Coumadin for valve replacement denies Pain Score (Numeric/FACES): 0 - Related Data Allergies Allergy/AdvReac Type Severity Reaction Status Date / Time ampicillin Allergy Rash Verified 08/26/20 04:46 niacin Allergy Cannot Verified 08/26/20 04:46 Remember strawberry Allergy Cannot Verified 08/26/20 04:46 Remember Sulfa (Sulfonamide Allergy Cannot Verified 08/26/20 04:46 Antibiotics) Remember zolpidem tartrate Allergy Confusion Verified 08/26/20 04:46 [From Riccardo] Home Meds: Home Meds Calcium Carbonate/Vitamin D3 [Calcium 600 + Vit D 400] 1 tab PO DAILY 11/04/14 [History] Multivitamin [Multi-Vitamin Daily] 1 tab PO DAILY 11/04/14 [History] amLODIPine [Norvasc] 10 mg PO DAILY 11/04/14 [History] atorvaSTATin [Lipitor] 20 mg PO BEDTIME 11/04/14 [History] Warfarin [Coumadin] 1 mg PO SUTUTHFRSA@2100 05/16/17 [History] Potassium Chloride [Klor-Con 10] 10 meq PO DAILY 04/12/18 [History] Benzonatate 100 mg PO TID PRN 10/29/19 [History] Clindamycin HCl 600 mg PO ASDIRECTED PRN 10/29/19 [History] Oxybutynin 2.5 mg PO BID 10/29/19 [History] Warfarin [Coumadin] 0.5 mg PO MOWE@2100 08/05/20 [History] Metoprolol Tartrate 50 mg PO BID 08/07/20 [History] Furosemide 40 mg PO BID #60 tablet 08/08/20 [Rx] Cimetidine 300 mg PO BEDTIME 08/26/20 [History] Viteyes Areds 1 tab PO DAILY 08/26/20 [History] Past Medical History HEENT History: Reports: Impaired Vision Cardiovascular History: Reports: Afib, CAD, Heart Valve Replacement, High Cholesterol, Hypertension, HI, Stents 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: Musculoskeletal History: Reports: Osteoarthritis, Osteoporosis - Infectious Disease History Infectious Disease History: Reports: Chicken Pox, Measles, Mumps - Past Surgical History HEENT Surgical History: Reports: Cataract Surgery Cardiovascular Surgical History: Reports: Coronary Artery Stent, Vascular Surgery GI Surgical History: Reports: Appendectomy Social & Family History - Tobacco Use Smoking Status *Q: Former Smoker Years of Tobacco use: 50 Packs/Tins Daily: 1 Used Tobacco, but Quit: Yes Month/Year Tobacco Last Used: March Second Hand Smoke Exposure: No - Caffeine Use Caffeine Use: Reports: Coffee, Soda - Alcohol Use Days Per Week of Alcohol Use: 2 Number of Drinks Per Day: 2 Total Drinks Per Week: 4 - Recreational Drug Use Recreational Drug Use: No - Living Situation & Occupation Living situation: Reports: 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, 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[employer], 3 children (one daughter lives in the area), many grandchildren.) ED ROS GENERAL - Review of Systems Review Of Systems: See Below Constitutional: Reports: No Symptoms HEENT: Reports: No Symptoms Respiratory: Reports: Shortness of Breath Cardiovascular: Reports: Chest Pain, Palpitations GI/Abdominal: Reports: No Symptoms : Reports: No Symptoms Musculoskeletal: Reports: No Symptoms Skin: Reports: No Symptoms ED EXAM, GENERAL - Physical Exam Exam: See Below Exam Limited By: No Limitations General Appearance: Alert, Mild Distress Respiratory/Chest: No Respiratory Distress, No Accessory Muscle Use, Decreased Breath Sounds, Crackles Cardiovascular: No Murmur, Tachycardia GI/Abdominal: Soft, Non-Tender Extremities: Normal Inspection, Normal Range of Motion, Non-Tender, No Pedal Edema ED CARDIOLOGY PROCEDURES - Cardioversion Time of Cardioversion: 06:25 Indication: Atrial Fibrillation with RVR Patient Counseled: Yes Informed Consent Obtained: Yes Preparation: IV Access, Airway Management Equipment, Supplemental Oxygen, Monitor, Reversal Agents Available Pre-Procedure Sedation: Propofol Cardioversion Energy: Other (150 J) Successful: Yes Number of Attempts: 1 Patient Condition Post Cardioversion: Improved Post Cardioversion EKG Reviewed: Yes - Additional/Other Procedure(s) Other (Free Text) Procedure(s): Preprocedure diagnosis: Atrial fibrillation with rapid ventricular response Postprocedure diagnosis: Sinus rhythm Indication for procedure: Dyspnea Performing physician: Officer Procedure: Patient is located emergency department. Review risks and benefits of electrical cardioversion including but not limited to: Superficial skin beasley, ineffective treatment, unknown arrhythmias, reaction to anesthesia medications or asystole. The risks and benefits to this procedure have been discussed. Patient wishes to proceed with electrical cardioversion. The patient was connected to cardioversion pads with EKG monitoring, oxygen via nasal cannula with equipment of intubation and suction in the room. Informed consent was completed prior to the procedure with timeout performed by nursing staff. After adequate anesthesia was achieved the machine was charged to 150 joules and a synchronized electrical shock was applied. Patient was successfully converted to normal sinus rhythm based on telemetry monitoring. Patient will remain in the emergency department for post anesthesia care until awake and alert. Plan is to discharge home. Anticoagulation of Coumadin Complications: None apparent Postprocedural EKG: Sinus rhythm bradycardia Face to Face time 20 minutes Departure - Departure Disposition: Home, Self-Care 01 Clinical Impression: Atrial fibrillation with RVR Instructions: Atrial Fibrillation, [id number] Referrals: Yovany Miramontes MD [Primary Care Provider] - Forms: ED Department Discharge Care Plan Goals: Continue on your current medications, increase activity as tolerated and return anytime if symptoms recur or you develop other concerns. Sepsis Event Note (ED) - Evaluation Sepsis Screening Result: No Definite Risk <Dawood Yates - Last Filed: 08/26/20 10:02> Course - Vital Signs Last Recorded V/S: Last Vital Signs Temp 97.8 F 08/26/20 04:45 Pulse 59 L 08/26/20 07:26 Resp 22 H 08/26/20 07:26 BP 162/62 H 08/26/20 07:26 Pulse Ox 99 08/26/20 07:26 - Orders/Labs/Meds Orders: Active Orders 24 hr Category Date Time Status ED Antiarrhythmia Med Reflex [OM.PC] Stat Oth 08/26/20 05:00 Ordered Peripheral IV Insertion Adult [OM.PC] Stat Oth 08/26/20 04:59 Ordered EKG 12 Lead [EK] Stat Ther 08/26/20 05:00 Ordered EKG 12 Lead [EK] Stat Ther 08/26/20 06:24 Ordered Labs: Laboratory Tests 08/26/20 08/26/20 08/26/20 Range/Units 05:10 05:10 05:10 WBC 6.9 (4.5-11.0) K/uL RBC 4.38 (3.30-5.50) M/uL Hgb 12.7 (12.0-15.0) g/dL Hct 39.6 (36.0-48.0) % MCV 90 (80-98) fL MCH 29 (27-31) pg MCHC 32 (32-36) % Plt Count 285 (150-400) K/uL Neut % (Auto) 80 H (36-66) % Lymph % (Auto) 11 L (24-44) % [place] % (Auto) 9 H (2-6) % Eos % (Auto) 0 L (2-4) % Baso % (Auto) 0 (0-1) % PT 20.3 H (9.5-12.0) sec INR 1.89 H (0.80-1.20) APTT 31.7 (27.0-36.0) sec Sodium 139 L (140-148) mmol/L Potassium 3.4 L (3.6-5.2) mmol/L Chloride 101 (100-108) mmol/L Carbon Dioxide 27 (21-32) mmol/L Anion Gap 14.4 H (5.0-14.0) mmol/L BUN 20 H (7-18) mg/dL Creatinine 1.0 (0.6-1.0) mg/dL Est Cr Clr Drug Dosing 31.04 mL/min Estimated GFR (MDRD) 53 L (>60) Glucose 126 H (74-106) mg/dL Calcium 9.6 (8.5-10.1) mg/dL Total Bilirubin 0.6 (0.2-1.0) mg/dL AST 22 (15-37) U/L ALT 21 (12-78) U/L Alkaline Phosphatase 102 (46-116) U/L Troponin I < 0.017 (0.000-0.056) ng/mL NT-Pro-B Natriuret Pep (5-450) pg/mL Total Protein 7.7 (6.4-8.2) g/dL Albumin 3.5 (3.4-5.0) g/dL Globulin 4.2 H (2.3-3.5) g/dL Albumin/Globulin Ratio 0.8 L (1.2-2.2) 08/26/20 Range/Units 05:10 WBC (4.5-11.0) K/uL RBC (3.30-5.50) M/uL Hgb (12.0-15.0) g/dL Hct (36.0-48.0) % MCV (80-98) fL MCH (27-31) pg MCHC (32-36) % Plt Count (150-400) K/uL Neut % (Auto) (36-66) % Lymph % (Auto) (24-44) % [place] % (Auto) (2-6) % Eos % (Auto) (2-4) % Baso % (Auto) (0-1) % PT (9.5-12.0) sec INR (0.80-1.20) APTT (27.0-36.0) sec Sodium (140-148) mmol/L Potassium (3.6-5.2) mmol/L Chloride (100-108) mmol/L Carbon Dioxide (21-32) mmol/L Anion Gap (5.0-14.0) mmol/L BUN (7-18) mg/dL Creatinine (0.6-1.0) mg/dL Est Cr Clr Drug Dosing mL/min Estimated GFR (MDRD) (>60) Glucose (74-106) mg/dL Calcium (8.5-10.1) mg/dL Total Bilirubin (0.2-1.0) mg/dL AST (15-37) U/L ALT (12-78) U/L Alkaline Phosphatase (46-116) U/L Troponin I (0.000-0.056) ng/mL NT-Pro-B Natriuret Pep 2242 H (5-450) pg/mL Total Protein (6.4-8.2) g/dL Albumin (3.4-5.0) g/dL Globulin (2.3-3.5) g/dL Albumin/Globulin Ratio (1.2-2.2) Meds: Medications Discontinued Medications Generic Name Dose Route Start Last Admin Trade Name Freq PRN Reason Stop Dose Admin Diltiazem HCl 12 mg 08/26/20 04:59 08/26/20 05:14 Diltiazem IVPUSH 08/26/20 05:00 12 mg ONETIME ONE Administration Sodium Chloride 1,000 mls @ 35 mls/hr 08/26/20 05:00 08/26/20 05:20 Normal Saline IV 35 mls/hr ASDIRECTED DAVE Administration Metoprolol Tartrate 50 mg 08/26/20 05:42 08/26/20 05:48 Lopressor PO 08/26/20 05:43 Not Given ONETIME ONE Propofol Confirm 08/26/20 06:34 Diprivan 20 Ml Administered 08/26/20 06:35 Dose 200 mg .ROUTE .STK-MED ONE Sodium Chloride 10 ml 08/26/20 04:59 Saline Flush FLUSH ASDIRECTED PRN Keep Vein Open - Re-Assessments/Exams Free Text/Narrative Re-Assessment/Exam: 08/26/20 07:30 Patient recovered well after cardioversion and remained in sinus rhythm. She will be discharged and continued on her same medications and can return if symptoms recur or she develops other concerns. Departure - Departure Time of Disposition: 07:55 Sepsis Event Note (ED) - Focused Exam Vital Signs: Vital Signs Temp Pulse Pulse Resp BP BP Pulse Ox 08/26/20 07:26 59 L 22 H 162/62 H 99 08/26/20 06:31 47 L 16 107/42 L 100 08/26/20 06:25 63 15 116/53 L 100 08/26/20 06:10 141 H 114/58 L 08/26/20 05:48 119 H 130/66 08/26/20 05:41 134 H 128/69 08/26/20 05:11 142 H 14 126/51 L 98 08/26/20 04:45 97.8 F 138 H 20 147/86 H 99
[2020-08-26] MEDS ORDERED: Metoprolol Tartrate 50 MG Tab PO ONE (05:42)
[2020-08-26] MEDS ORDERED: Propofol 200 MG/20 ML SDV ONE (06:34)
[2020-08-26 07:27] VITALS: BP 162/62; PULSE 59
== END 2020-08-26 07:55 | disposition home or self-care (01) ==
LOC: JP.ED 04:30
DX: I48.0 Paroxysmal atrial fibrillation (principal); I11.0 Hypertensive heart disease with heart failure; I50.30 Unspecified diastolic (congestive) heart failure; I25.10 Atherosclerotic heart disease of native coronary artery without angina pectoris; I25.2 Old myocardial infarction; E78.00 Pure hypercholesterolemia, unspecified; Z88.3 Allergy status to other anti-infective agents; Z88.1 Allergy status to other antibiotic agents; Z88.2 Allergy status to sulfonamides; Z91.018 Allergy to other foods; Z88.8 Allergy status to other drugs, medicaments and biological substances; Z87.891 Personal history of nicotine dependence; Z79.899 Other long term (current) drug therapy
CPT/HCPCS: 36415; 80053; 83880; 84484; 85025; 85610; 85730; 92960; 93005; 96361; 96374; 99152; 99153; 99285; J2704; J3490; J7030

== ENCOUNTER 2021-06-10 11:37 | Emergency (ER) | payer MEDICARE, OTHER ==
[2021-06-10] MEDS ORDERED: Sodium Chloride 0.9% 10 ML Syringe FLUSH PRN (11:41)
--- NOTE | 2021-06-10 12:22 | EDM.PDOC ---
ED HPI GENERAL MEDICAL PROBLEM - General Chief Complaint: Cardiovascular Problem Stated Complaint: IRREGULAR HEARTRATE Time Seen by Provider: 06/10/21 12:00 Source of Information: Reports: Patient, Family, Old Records, RN - History of Present Illness INITIAL COMMENTS - FREE TEXT/NARRATIVE: Yu is a very pleasant active 85 year old female whom present to [facility] ER ([place]) for evaluation of palpitation likely a fib with general malaise/fatigue. Yu reports noting palpitations when she woke up yesterday am but continued on her day and took her routine medications. Yu is on Metoprolol am and pm, Norvasc and Lasix for blood pressure and heart rate control. Yu has known history of congestive heart failure Yu lives in a home which she continues to care for a clean her self with addition to readying for guest during the summer months. Yu did not not her heart rate higher than 120s yesterday but HR was as high as 140s during initial ER evaluation, reports as the highest it has been. Yu denies otherwise feeling ill, cough fever or other systemic symptoms. - Related Data Allergies Allergy/AdvReac Type Severity Reaction Status Date / Time ampicillin Allergy Rash Verified 06/10/21 11:55 niacin Allergy Cannot Verified 06/10/21 11:55 Remember strawberry Allergy Cannot Verified 06/10/21 11:55 Remember Sulfa (Sulfonamide Allergy Cannot Verified 06/10/21 11:55 Antibiotics) Remember zolpidem tartrate Allergy Confusion Verified 06/10/21 11:55 [From Riccardo] Home Meds: Home Meds Calcium Carbonate/Vitamin D3 [Calcium 600 + Vit D 400] 1 tab PO DAILY 11/04/14 [History] Multivitamin [Multi-Vitamin Daily] 1 tab PO DAILY 11/04/14 [History] amLODIPine [Norvasc] 10 mg PO DAILY 11/04/14 [History] atorvaSTATin [Lipitor] 20 mg PO BEDTIME 11/04/14 [History] Warfarin [Coumadin] 1 mg PO SUTUTHFRSA@2100 05/16/17 [History] Potassium Chloride [Klor-Con 10] 10 meq PO DAILY 04/12/18 [History] Benzonatate 100 mg PO TID PRN 10/29/19 [History] Clindamycin HCl 600 mg PO ASDIRECTED PRN 10/29/19 [History] Oxybutynin 2.5 mg PO BID 10/29/19 [History] Warfarin [Coumadin] 0.5 mg PO MOWE@2100 08/05/20 [History] Metoprolol Tartrate 50 mg PO BID 08/07/20 [History] Furosemide 40 mg PO BID #60 tablet 08/08/20 [Rx] Cimetidine 300 mg PO BEDTIME 08/26/20 [History] Viteyes Areds 1 tab PO BID 08/26/20 [History] Past Medical History HEENT History: Reports: Impaired Vision Cardiovascular History: Reports: Afib, CAD, Heart Valve Replacement, High Cholesterol, Hypertension, [place], 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: Musculoskeletal History: Reports: Osteoarthritis, Osteoporosis - Infectious Disease History Infectious Disease History: Reports: Chicken Pox, Measles, Mumps - Past Surgical History HEENT Surgical History: Reports: Cataract Surgery Other HEENT Surgeries/Procedures: last had a suspicious whitish lesion removed right side abve mouth Cardiovascular Surgical History: Reports: Coronary Artery Stent, Vascular Surgery GI Surgical History: Reports: Appendectomy Social & Family History - Tobacco Use Tobacco Use Status *Q: Never Tobacco User - Caffeine Use Caffeine Use: Reports: None - Recreational Drug Use Recreational Drug Use: No - Living Situation & Occupation Living situation: Reports: 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 (hard of hearing with assistance of female fmaily member) ED EXAM, GENERAL - Physical Exam Exam: See Below Exam Limited By: No Limitations (hard of hearing) General Appearance: Alert, WD/WN, Mild Distress Eye Exam: Bilateral Eye: EOMI, Normal Inspection Ears: Hearing Grossly Normal, Hearing Loss Nose: Normal Inspection, Normal Mucosa Throat/Mouth: Normal Inspection, Normal Voice, No Airway Compromise Head: Atraumatic Neck: Normal Inspection, Supple, Full Range of Motion Cardiovascular: Normal Peripheral Pulses, Tachycardia, Irregularly Irregular GI/Abdominal: Normal Bowel Sounds, Tender (mild diffuse non focal) Extremities: Normal Inspection, Normal Range of Motion, Other (slight discomfort left lower leg without pitting edema ) Neurological: Alert, Oriented, CN II-XII Intact, Normal Cognition Psychiatric: Normal Affect, Normal Mood Skin Exam: Warm, Dry, Intact, Normal Color ED CARDIOLOGY PROCEDURES - Cardioversion Time of Cardioversion: 14:05 Indication: Unstable (CHF exacerbation due to underlying Diastolic heart failure and RVR), Atrial Fibrillation with RVR Patient Counseled: Yes Informed Consent Obtained: Yes Preparation: IV Access, Airway Management Equipment, Supplemental Oxygen, Monitor Pre-Procedure Sedation: Propofol (60 mg one dose ) Cardioversion Energy: Other (125 J) Mode: Biphasic Successful: Yes Number of Attempts: 1 Patient Condition Post Cardioversion: Improved Post Cardioversion EKG Reviewed: Yes #1 Interpretation EKG Date: 06/10/21 Time: 11:56 Rhythm: A-Fib Rate (Beats/Min): 138 [place]: LAD-Left [place] Deviation (LVH) P-Wave: Absent QRS: Normal ST-T: Normal QT: Prolonged Comparison: Other: (Bradycardia) #2 Interpretation EKG Date: 06/10/21 Time: 14:06 Rhythm: NSR Rate (Beats/Min): 61 (baseline bradycardia) [place]: LAD-Left [place] Deviation (LVH) P-Wave: Variable QRS: Normal ST-T: Normal QT: Normal Comparison: Change From Previous EKG (post cardioversion a fib no longer present return to NSR bradycardia) Course - Vital Signs Last Recorded V/S: Last Vital Signs Temp 37.2 C 06/10/21 11:53 Pulse 126 H 06/10/21 12:51 Resp 20 06/10/21 13:44 BP 129/78 06/10/21 13:44 Pulse Ox 98 06/10/21 13:44 - Orders/Labs/Meds Orders: Active Orders 24 hr Category Date Time Status Ambulate [RC] PER UNIT ROUTINE Care 06/10/21 14:56 Ordered Cardiac Monitoring [RC] .As Directed Care 06/10/21 11:41 Active Cardioversion, Elective [RC] ASDIRECTED Care 06/10/21 12:55 Active EKG Documentation Completion [RC] ASDIRECTED Care 06/10/21 11:42 Active EKG Documentation Completion [RC] ASDIRECTED Care 06/10/21 14:19 Active Peripheral IV Care [RC] . DIRECTED Care 06/10/21 11:42 Active Verify Patient Consent Obtain [RC] ASDIRECTED Care 06/10/21 12:55 Active Sodium Chloride 0.9% [Saline Flush] Med 06/10/21 11:41 Active 10 ml FLUSH ASDIRECTED PRN Peripheral IV Insertion Adult [OM.PC] Urgent Oth 06/10/21 11:41 Ordered EKG 12 Lead [EK] Urgent Ther 06/10/21 11:42 Ordered EKG 12 Lead [EK] Urgent Ther 06/10/21 14:19 Ordered Medication Orders Sodium Chloride (Sodium Chloride 0.9% 10 Ml Syringe) 10 ml FLUSH ASDIRECTED PRN PRN Reason: Keep Vein Open Last Admin: 06/10/21 12:43 Dose: 10 ml Documented by: ERVIN Labs: Laboratory Tests 06/10/21 06/10/21 06/10/21 Range/Units 11:55 11:55 11:55 WBC 8.8 (4.5-11.0) K/uL RBC 4.57 (3.30-5.50) M/uL Hgb 14.0 (12.0-15.0) g/dL Hct 42.4 (36.0-48.0) % MCV 93 (80-98) fL MCH 31 (27-31) pg MCHC 33 (32-36) % Plt Count 287 (150-400) K/uL Neut % (Auto) 74.8 H (36-66) % Lymph % (Auto) 11.3 L (24-44) % [place] % (Auto) 12.3 H (2-6) % Eos % (Auto) 1.4 L (2-4) % Baso % (Auto) 0.2 (0-1) % PT (9.5-12.0) sec INR (0.80-1.20) Sodium 144 (140-148) mmol/L Potassium 4.2 (3.6-5.2) mmol/L Chloride 106 (100-108) mmol/L Carbon Dioxide 26 (21-32) mmol/L Anion Gap 12.1 (5.0-14.0) mmol/L BUN 22 H (7-18) mg/dL Creatinine 1.1 H (0.6-1.0) mg/dL Est Cr Clr Drug Dosing 27.86 mL/min Estimated GFR (MDRD) 47 L (>60) Glucose 115 H (74-106) mg/dL Calcium 9.6 (8.5-10.1) mg/dL Magnesium 2.3 (1.8-2.4) mg/dL Total Bilirubin 0.6 (0.2-1.0) mg/dL AST 24 (15-37) U/L ALT 27 (12-78) U/L Alkaline Phosphatase 114 (46-116) U/L NT-Pro-B Natriuret Pep (5-450) pg/mL Total Protein 7.3 (6.4-8.2) g/dL Albumin 3.6 (3.4-5.0) g/dL Globulin 3.7 H (2.3-3.5) g/dL Albumin/Globulin Ratio 1.0 L (1.2-2.2) Urine Color (YELLOW) Urine Appearance (CLEAR) Urine pH (5.0-8.0) Ur Specific [place] (1.008-1.030) Urine Protein (NEGATIVE) mg/dL Urine Glucose (UA) (NEGATIVE) mg/dL Urine Ketones (NEGATIVE) mg/dL Urine Occult Blood (NEGATIVE) Urine Nitrite (NEGATIVE) Urine Bilirubin (NEGATIVE) Urine Urobilinogen (0.2-1.0) EU/dL Ur Leukocyte Esterase (NEGATIVE) Urine RBC (0-5) Urine WBC (0-5) Ur Epithelial Cells Amorphous Sediment Urine Bacteria Urine Mucus 06/10/21 06/10/21 06/10/21 Range/Units 11:55 12:32 13:57 WBC (4.5-11.0) K/uL RBC (3.30-5.50) M/uL Hgb (12.0-15.0) g/dL Hct (36.0-48.0) % MCV (80-98) fL MCH (27-31) pg MCHC (32-36) % Plt Count (150-400) K/uL Neut % (Auto) (36-66) % Lymph % (Auto) (24-44) % [place] % (Auto) (2-6) % Eos % (Auto) (2-4) % Baso % (Auto) (0-1) % PT 26.7 H (9.5-12.0) sec INR 2.49 H (0.80-1.20) Sodium (140-148) mmol/L Potassium (3.6-5.2) mmol/L Chloride (100-108) mmol/L Carbon Dioxide (21-32) mmol/L Anion Gap (5.0-14.0) mmol/L BUN (7-18) mg/dL Creatinine (0.6-1.0) mg/dL Est Cr Clr Drug Dosing mL/min Estimated GFR (MDRD) (>60) Glucose (74-106) mg/dL Calcium (8.5-10.1) mg/dL Magnesium (1.8-2.4) mg/dL Total Bilirubin (0.2-1.0) mg/dL AST (15-37) U/L ALT (12-78) U/L Alkaline Phosphatase (46-116) U/L NT-Pro-B Natriuret Pep 8704 H (5-450) pg/mL Total Protein (6.4-8.2) g/dL Albumin (3.4-5.0) g/dL Globulin (2.3-3.5) g/dL Albumin/Globulin Ratio (1.2-2.2) Urine Color Yellow (YELLOW) Urine Appearance Clear (CLEAR) Urine pH 6.0 (5.0-8.0) Ur Specific [place] 1.025 (1.008-1.030) Urine Protein Negative (NEGATIVE) mg/dL Urine Glucose (UA) Negative (NEGATIVE) mg/dL Urine Ketones Negative (NEGATIVE) mg/dL Urine Occult Blood Trace-intact H (NEGATIVE) Urine Nitrite Negative (NEGATIVE) Urine Bilirubin Negative (NEGATIVE) Urine Urobilinogen 0.2 (0.2-1.0) EU/dL Ur Leukocyte Esterase Trace H (NEGATIVE) Urine RBC 0-5 (0-5) Urine WBC 0-5 (0-5) Ur Epithelial Cells Rare Amorphous Sediment Not seen Urine Bacteria Rare Urine Mucus Not seen Meds: Medications Generic Name Dose Route Start Last Admin Trade Name Freq PRN Reason Stop Dose Admin Sodium Chloride 10 ml 06/10/21 11:41 06/10/21 12:43 Sodium Chloride 0.9% 10 Ml Syringe FLUSH 10 ml ASDIRECTED PRN Administration Keep Vein Open Discontinued Medications Generic Name Dose Route Start Last Admin Trade Name Freq PRN Reason Stop Dose Admin Propofol 200 mg 06/10/21 13:23 Propofol 200 Mg/20 Ml Sdv IVPUSH 06/10/21 13:24 ONETIME ONE - Re-Assessments/Exams Free Text/Narrative Re-Assessment/Exam: 06/10/21 12:52 Updated patient and family regarding worsening diastolic heart failure/fluid overload which is due to elevated heart rate causing increased heart function with known underlying Diastolic CHF. If coumadin is in a therapeutic range, electric cardioversion will be recommended. If anti-coagulant sub therapeutic, Cardizem, medical management with echocardiogram before cardioversion is recommended. 06/10/21 12:56 INR therapeutic range. Consent requested and discussed plan for cardioversion with nursing staff. 06/10/21 13:00 Chart review with recent ER visit which resulted in emergent cardioversion and recent echocardiogram noting diastolic heart failure with left restrictive filling capacity. 06/10/21 14:14 Cardioversion completed with single attempt return to NSR bradycardia noted. EKG repeated. 06/10/21 14:47 Patient sitting up drinking water and feeling good enough to go home. Discussed taking Lasix at home with good blood pressure (high 126/80s post cardioversion. Yu denies increase in weight over the last 3-5 days. Yu would prefer to take her lasix at home and not receive an IV dose during ER visit at this time. Family at bedside is comfortable with discharge home. 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 Call clinic tomorrow for follow-up after ER visit. 2. Continue current medications as directed. 3. Continue to check weight daily for changed over o maxim 2-3 pound or 5 pounds over 3 days. 4. Read information regarding A fib, heart failure and elevated blood pressure. 5. Return to ER if concerns new or worsening symptoms or concerns. Sepsis Event Note (ED) - Evaluation Sepsis Screening Result: No Definite Risk - Focused Exam Vital Signs: Vital Signs Temp Pulse Resp BP Pulse Ox 06/10/21 13:44 20 129/78 98 06/10/21 13:14 24 H 108/65 98 06/10/21 12:51 126 H 18 119/68 99 06/10/21 11:53 37.2 C 134 H 17 123/75 98 - My Orders Last 24 Hours: My Active Orders 06/10/21 11:41 Cardiac Monitoring [RC] .As Directed Sodium Chloride 0.9% [Saline Flush] 10 ml FLUSH ASDIRECTED PRN Peripheral IV Insertion Adult [OM.PC] Urgent 06/10/21 11:42 EKG Documentation Completion [RC] ASDIRECTED Peripheral IV Care [RC] . DIRECTED EKG 12 Lead [EK] Urgent 06/10/21 12:55 Cardioversion, Elective [RC] ASDIRECTED Verify Patient Consent Obtain [RC] ASDIRECTED 06/10/21 14:19 EKG Documentation Completion [RC] ASDIRECTED EKG 12 Lead [EK] Urgent 06/10/21 14:56 Ambulate [RC] PER UNIT ROUTINE - Assessment/Plan Last 24 Hours: My Active Orders 06/10/21 11:41 Cardiac Monitoring [RC] .As Directed Sodium Chloride 0.9% [Saline Flush] 10 ml FLUSH ASDIRECTED PRN Peripheral IV Insertion Adult [OM.PC] Urgent 06/10/21 11:42 EKG Documentation Completion [RC] ASDIRECTED Peripheral IV Care [RC] . DIRECTED EKG 12 Lead [EK] Urgent 06/10/21 12:55 Cardioversion, Elective [RC] ASDIRECTED Verify Patient Consent Obtain [RC] ASDIRECTED 06/10/21 14:19 EKG Documentation Completion [RC] ASDIRECTED EKG 12 Lead [EK] Urgent 06/10/21 14:56 Ambulate [RC] PER UNIT ROUTINE
[2021-06-10 12:52] VITALS: PULSE 126
[2021-06-10] MEDS ORDERED: Propofol 200 MG/20 ML SDV IVPUSH ONE (13:23)
[2021-06-10 13:58] VITALS: BP 129/78
--- NOTE | 2021-06-10 14:03 | CR ---
CHEST: Portable 06/10/2021 at 1:25 PM CLINICAL HISTORY:SOB COMPARISON:08/05/2020 FINDINGS: Lungs are emphysematous. Heart is enlarged pulmonary vascular is normal. There are atherosclerotic changes in the aorta.. Patient has had previous sternotomy. There is some scarring in the lung bases bilaterally. Impression: Emphysematous changes Cardiomegaly No acute cardiopulmonary process
== END 2021-06-10 15:30 | disposition home or self-care (01) ==
LOC: JP.ED 11:37
DX: I48.91 Unspecified atrial fibrillation (principal); I11.0 Hypertensive heart disease with heart failure; I50.30 Unspecified diastolic (congestive) heart failure; E78.00 Pure hypercholesterolemia, unspecified; I42.5 Other restrictive cardiomyopathy; Z88.1 Allergy status to other antibiotic agents; Z91.018 Allergy to other foods; Z88.2 Allergy status to sulfonamides; Z79.01 Long term (current) use of anticoagulants; Z79.899 Other long term (current) drug therapy
CPT/HCPCS: 36415; 71045; 80053; 81001; 83735; 83880; 85025; 85610; 92960; 93005; 99285; J2704

== ENCOUNTER 2021-06-15 02:32 | Emergency (ER) | payer MEDICARE, OTHER ==
[2021-06-15] MEDS ORDERED: Sodium Chloride 0.9% 10 ML Syringe FLUSH PRN (02:43)
[2021-06-15] MEDS ORDERED: Diltiazem 25 MG/5 ML SDV IVPUSH ONE (02:50)
--- NOTE | 2021-06-15 02:56 | EDM.PDOC ---
ED HPI GENERAL MEDICAL PROBLEM - General Chief Complaint: Cardiovascular Problem Stated Complaint: POSSIBLE A-FIB Time Seen by Provider: 06/15/21 02:43 Source of Information: Reports: Patient History Limitations: Reports: No Limitations - History of Present Illness INITIAL COMMENTS - FREE TEXT/NARRATIVE: Yu is an 85-year-old female presenting to the ED with acute onset of rapid irregular heartbeat that started around midnight tonight. Patient has a history significant for paroxysmal atrial fibrillation and was seen on Thursday (5 days ago for the same. She is usually typically resistant to conversion with diltiazem and has to be electrically converted. She is anticoagulated with Coumadin. Does not appear that she has had a recent echocardiogram. Again she was recently in the ER on Thursday where she underwent electrocardioversion that successfully put her back into sinus rhythm. See onset of her symptoms tonight, she has had shortness of breath and chest pressure. Her EKG was obtained and shows ST depression, likely demand ischemia. - Related Data Allergies Allergy/AdvReac Type Severity Reaction Status Date / Time ampicillin Allergy Rash Verified 06/15/21 02:41 niacin Allergy Cannot Verified 06/15/21 02:41 Remember strawberry Allergy Cannot Verified 06/15/21 02:41 Remember Sulfa (Sulfonamide Allergy Cannot Verified 06/15/21 02:41 Antibiotics) Remember zolpidem tartrate Allergy Confusion Verified 06/15/21 02:41 [From Riccardo] Home Meds: Home Meds Calcium Carbonate/Vitamin D3 [Calcium 600 + Vit D 400] 1 tab PO DAILY 11/04/14 [History] Multivitamin [Multi-Vitamin Daily] 1 tab PO DAILY 11/04/14 [History] amLODIPine [Norvasc] 10 mg PO DAILY 11/04/14 [History] atorvaSTATin [Lipitor] 20 mg PO BEDTIME 11/04/14 [History] Warfarin [Coumadin] 1 mg PO SUTUTHFRSA@209905/16/17 [History] Potassium Chloride [Klor-Con 10] 10 meq PO DAILY 04/12/18 [History] Benzonatate 100 mg PO TID PRN 10/29/19 [History] Clindamycin HCl 600 mg PO ASDIRECTED PRN 10/29/19 [History] Oxybutynin 2.5 mg PO BID 10/29/19 [History] Warfarin [Coumadin] 0.5 mg PO MOWE@2100 08/05/20 [History] Metoprolol Tartrate 50 mg PO BID 08/07/20 [History] Furosemide 40 mg PO BID #60 tablet 08/08/20 [Rx] Cimetidine 300 mg PO BEDTIME 08/26/20 [History] Ramos Areds 1 tab PO BID 08/26/20 [History] Past Medical History HEENT History: Reports: Impaired Vision Cardiovascular History: Reports: Afib, CAD, Heart Valve Replacement, High Cholesterol, Hypertension, [place], Stents 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: Musculoskeletal History: Reports: Osteoarthritis, Osteoporosis - Infectious Disease History Infectious Disease History: Reports: Chicken Pox, Measles, Mumps - Past Surgical History HEENT Surgical History: Reports: Cataract Surgery Other HEENT Surgeries/Procedures: last had a suspicious whitish lesion removed right side abve mouth Cardiovascular Surgical History: Reports: Coronary Artery Stent, Vascular Surgery GI Surgical History: Reports: Appendectomy Social & Family History - Tobacco Use Tobacco Use Status *Q: Never Tobacco User - Caffeine Use Caffeine Use: Reports: Coffee - Recreational Drug Use Recreational Drug Use: No - Living Situation & Occupation Living situation: Reports: 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, 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, 3 children (one daughter lives in the area), many grandchildren.) ED ROS GENERAL - Review of Systems Review Of Systems: See Below Constitutional: Reports: Malaise HEENT: Reports: No Symptoms Respiratory: Reports: Shortness of Breath Cardiovascular: Reports: Chest Pain, Palpitations Endocrine: Reports: No Symptoms GI/Abdominal: Reports: No Symptoms : Reports: No Symptoms Musculoskeletal: Reports: No Symptoms Skin: Reports: No Symptoms Neurological: Reports: No Symptoms Psychiatric: Reports: No Symptoms Hematologic/Lymphatic: Reports: No Symptoms Immunologic: Reports: No Symptoms ED EXAM, GENERAL - Physical Exam Exam: See Below Exam Limited By: No Limitations General Appearance: Alert, Anxious, Mild Distress Eye Exam: Bilateral Eye: EOMI, PERRL Throat/Mouth: Normal Inspection, Normal Lips, Normal Oropharynx, Normal Voice, No Airway Compromise Head: Atraumatic, Normocephalic Neck: Normal Inspection, Supple, Non-Tender, Full Range of Motion Respiratory/Chest: No Respiratory Distress, Lungs Clear, Normal Breath Sounds Cardiovascular: Normal Peripheral Pulses, Tachycardia, Systolic Murmur (2/6 systolic ejection murmur), Irregularly Irregular Peripheral Pulses: 2+: Radial (L), Radial (R) GI/Abdominal: Normal Bowel Sounds, Soft, Non-Tender Extremities: Normal Inspection, Normal Range of Motion, No Pedal Edema, Normal Capillary Refill Neurological: Alert, Oriented, Normal Cognition, No Motor/Sensory Deficits Psychiatric: Normal Affect, Anxious Skin Exam: Warm, Dry, Intact, Normal Color ED CARDIOLOGY PROCEDURES - Cardioversion Time of Cardioversion: 04:00 Indication: Atrial Fibrillation with RVR Patient Counseled: Yes Informed Consent Obtained: Yes Preparation: IV Access, Airway Management Equipment, Supplemental Oxygen, Monitor, Reversal Agents Available Pre-Procedure Sedation: Propofol Cardioversion Energy: 200J Sync Mode: Biphasic Successful: Yes Number of Attempts: 1 Patient Condition Post Cardioversion: Improved Post Cardioversion EKG Reviewed: Yes #1 Interpretation EKG Date: 06/15/21 Time: 02:37 Rhythm: A-Fib Rate (Beats/Min): 144 QRS: Normal (LVH by voltage criteria. Anterior fascicular block) ST-T: Depressed (ST depression in precordial leads likely due to demand isc hemia.) QT: Prolonged Comparison: Change From Previous EKG #2 Interpretation EKG Date: 06/15/21 Time: 04:08 Rhythm: NSR Rate (Beats/Min): 55 Lydia: LAD-Left Lydia Deviation P-Wave: Present QRS: Normal (LVH by voltage criteria) ST-T: Normal (Ischemic changes are now gone) QT: Normal Comparison: Change From Previous EKG Course - Vital Signs Last Recorded V/S: Last Vital Signs Temp 36.4 C 06/15/21 02:57 Pulse 75 06/15/21 03:06 Resp 21 H 06/15/21 03:06 BP 99/63 06/15/21 03:06 Pulse Ox 97 06/15/21 03:06 - Orders/Labs/Meds Orders: Active Orders 24 hr Category Date Time Status EKG Documentation Completion [RC] ASDIRECTED Care 06/15/21 02:44 Active Sodium Chloride 0.9% [Saline Flush] Med 06/15/21 02:43 Active 10 ml FLUSH ASDIRECTED PRN Saline Lock Insert [OM.PC] Routine Oth 06/15/21 02:43 Ordered EKG 12 Lead [EK] Routine Ther 06/15/21 02:43 Ordered Medication Orders Sodium Chloride (Sodium Chloride 0.9% 10 Ml Syringe) 10 ml FLUSH ASDIRECTED PRN PRN Reason: Keep Vein Open Last Admin: 06/15/21 02:47 Dose: 10 ml Documented by: JJ Labs: Laboratory Tests 06/15/21 06/15/21 06/15/21 Range/Units 02:45 02:45 02:45 WBC 8.7 (4.5-11.0) K/uL RBC 4.61 (3.30-5.50) M/uL Hgb 13.7 (12.0-15.0) g/dL Hct 42.3 (36.0-48.0) % MCV 92 (80-98) fL MCH 30 (27-31) pg MCHC 32 (32-36) % Plt Count 265 (150-400) K/uL Neut % (Auto) 68.7 H (36-66) % Lymph % (Auto) 14.2 L (24-44) % [place] % (Auto) 13.6 H (2-6) % Eos % (Auto) 3.2 (2-4) % Baso % (Auto) 0.3 (0-1) % PT 29.0 H (9.5-12.0) sec INR 2.71 H (0.80-1.20) APTT 37.2 H (27.0-36.0) sec Sodium 143 (140-148) mmol/L Potassium 3.3 L (3.6-5.2) mmol/L Chloride 102 (100-108) mmol/L Carbon Dioxide 27 (21-32) mmol/L Anion Gap 17.3 H (5.0-14.0) mmol/L BUN 18 (7-18) mg/dL Creatinine 1.1 H (0.6-1.0) mg/dL Est Cr Clr Drug Dosing 27.86 mL/min Estimated GFR (MDRD) 47 L (>60) Glucose 121 H (74-106) mg/dL Calcium 8.9 (8.5-10.1) mg/dL Total Bilirubin 0.7 (0.2-1.0) mg/dL AST 23 (15-37) U/L ALT 30 (12-78) U/L Alkaline Phosphatase 119 H (46-116) U/L Troponin I < 0.017 (0.000-0.056) ng/mL NT-Pro-B Natriuret Pep (5-450) pg/mL Total Protein 7.5 (6.4-8.2) g/dL Albumin 3.7 (3.4-5.0) g/dL Globulin 3.8 H (2.3-3.5) g/dL Albumin/Globulin Ratio 1.0 L (1.2-2.2) TSH, Ultra Sensitive 3.401 (0.358-3.740) uIU/mL 06/15/21 Range/Units 02:45 WBC (4.5-11.0) K/uL RBC (3.30-5.50) M/uL Hgb (12.0-15.0) g/dL Hct (36.0-48.0) % MCV (80-98) fL MCH (27-31) pg MCHC (32-36) % Plt Count (150-400) K/uL Neut % (Auto) (36-66) % Lymph % (Auto) (24-44) % [place] % (Auto) (2-6) % Eos % (Auto) (2-4) % Baso % (Auto) (0-1) % PT (9.5-12.0) sec INR (0.80-1.20) APTT (27.0-36.0) sec Sodium (140-148) mmol/L Potassium (3.6-5.2) mmol/L Chloride (100-108) mmol/L Carbon Dioxide (21-32) mmol/L Anion Gap (5.0-14.0) mmol/L BUN (7-18) mg/dL Creatinine (0.6-1.0) mg/dL Est Cr Clr Drug Dosing mL/min Estimated GFR (MDRD) (>60) Glucose (74-106) mg/dL Calcium (8.5-10.1) mg/dL Total Bilirubin (0.2-1.0) mg/dL AST (15-37) U/L ALT (12-78) U/L Alkaline Phosphatase (46-116) U/L Troponin I (0.000-0.056) ng/mL NT-Pro-B Natriuret Pep 1815 H (5-450) pg/mL Total Protein (6.4-8.2) g/dL Albumin (3.4-5.0) g/dL Globulin (2.3-3.5) g/dL Albumin/Globulin Ratio (1.2-2.2) TSH, Ultra Sensitive (0.358-3.740) uIU/mL Meds: Medications Generic Name Dose Route Start Last Admin Trade Name Freq PRN Reason Stop Dose Admin Sodium Chloride 10 ml 06/15/21 02:43 06/15/21 02:47 Sodium Chloride 0.9% 10 Ml Syringe FLUSH 10 ml ASDIRECTED PRN Administration Keep Vein Open Discontinued Medications Generic Name Dose Route Start Last Admin Trade Name Freq PRN Reason Stop Dose Admin Diltiazem HCl 25 mg 06/15/21 02:50 06/15/21 02:56 Diltiazem 25 Mg/5 Ml Sdv IVPUSH 06/15/21 02:51 25 mg ONETIME ONE Administration Potassium Chloride 40 meq 06/15/21 03:39 Potassium Chloride 20 Meq Tab.Er PO 06/15/21 03:40 ONETIME ONE - Re-Assessments/Exams Free Text/Narrative Re-Assessment/Exam: 06/15/21 03:49 after receiving the EKG showing atrial fibrillation with a rapid ventricular response, an IV was established and the patient was given diltiazem 25 mg IV push. She had good rate control and a drop in her blood pressure to 99 /51 with her heart rate averaging in the 70s to 80s, however, she remained in atrial fibrillation and eventually her heart rate went back up into the 110s to 120s. At this time, her labs have returned and show a normal CBC and comprehensive metabolic panel except for a potassium of 3.3 and a creatinine of 1.1. Her TSH is normal at 3.4. Her PT is 29.0 with an INR of 2.71. Her PTT is mildly elevated at 37.2. Her troponin is negative at less than 0.017 and her BNP is elevated at 1815 signifying some degree of congestive heart failure. We did replete her potassium with K-Erin 40 mEq by mouth. As the bolus of diltiazem did not significantly convert her, we will proceed with an electrocardioversion to try to establish normal sinus rhythm again. The patient is more than a year out from her last echocardiogram and does need a new one. She is recently undergone a TVR and AVR. She does have a grade 2/6 systolic ejection murmur and has EKG evidence for LVH. Risks and benefits were discussed concerning electrocardioversion. This is the second time this week that she will undergo this. Sumit from anesthesia was called to provide conscious sedation. I encouraged the patient to follow-up with her railroad wheels and axle inspector concerning repeat echocardiogram and whether or not she would require an ablation for atrial fibrillation. She is scheduled to see her primary care provider, Dr. Miramontes this week. Jalen it appears that she has drug demand driven ischemia based on her EKG. 06/15/21 04:09 patient tolerated electrocardioversion under propofol conscious sedation. The cardioversion was performed in synced fashion at 200 J biphasic. After 1 attempt, the patient was converted back into normal sinus rhythm with a rate of 56 bpm. She remained vitally stable and recovered from conscious sedation. Fully recovered, the patient will be discharged home with her daughter. Indications return to the ED were discussed. The patient should follow-up with her primary care provider early next week to discuss echocardiogram and possible ablation if this keeps recurring. Departure - Departure Time of Disposition: 04:24 Disposition: Home, Self-Care 01 Clinical Impression: Paroxysmal atrial fibrillation with rapid ventricular response, On Coumadin for atrial fibrillation, Acute on chronic heart failure with preserved ejection fraction (HFpEF), Demand ischemia Instructions: Atrial Fibrillation, [id number], Heart Failure, Diagnosis, [id number] Referrals: Yovany Miramontes MD [Primary Care Provider] - Forms: ED Department Discharge Care Plan Goals: Follow-up with Dr. Miramontes next week as scheduled. Make sure to get your echocardiogram in the near future to evaluate for chamber size and function. You may want to discuss the possibility of a ablation procedure for recurrent atrial fibrillation if this continues to recur. Sepsis Event Note (ED) - Evaluation Sepsis Screening Result: No Definite Risk - Focused Exam Vital Signs: Vital Signs Temp Pulse Resp BP Pulse Ox 06/15/21 03:06 75 21 H 99/63 97 06/15/21 03:02 81 102/57 L 06/15/21 02:57 36.4 C 122 H 119/60 06/15/21 02:38 142 H 20 154/77 H 98 - Problem List & Annotations (1) Acute on chronic heart failure with preserved ejection fraction (HFpEF) SNOMED Code(s): 961303016, 226547606 Code(s): I50.33 - ACUTE ON CHRONIC DIASTOLIC (CONGESTIVE) HEART FAILURE Status: Acute Priority: High Current Visit: Yes (2) Demand ischemia SNOMED Code(s): 837543047, 428169788420241 Code(s): I24.8 - OTHER FORMS OF ACUTE ISCHEMIC HEART DISEASE Status: Acute Priority: High Current Visit: Yes (3) Paroxysmal atrial fibrillation with rapid ventricular response SNOMED Code(s): 2991451494 Code(s): I48.0 - PAROXYSMAL ATRIAL FIBRILLATION Status: Acute Priority: High Current Visit: Yes (4) On Coumadin for atrial fibrillation SNOMED Code(s): 19142365 Code(s): I48.91 - UNSPECIFIED ATRIAL FIBRILLATION; Z79.01 - PORTAL DEVELOPER (CURR ENT) USE OF ANTICOAGULANTS Status: Chronic Priority: High Current Visit: Yes - Problem List Review Problem List Initiated/Reviewed/Updated: Yes - My Orders Last 24 Hours: My Active Orders 06/15/21 02:43 Sodium Chloride 0.9% [Saline Flush] 10 ml FLUSH ASDIRECTED PRN Saline Lock Insert [OM.PC] Routine EKG 12 Lead [EK] Routine 06/15/21 02:44 EKG Documentation Completion [RC] ASDIRECTED - Assessment/Plan Last 24 Hours: My Active Orders 06/15/21 02:43 Sodium Chloride 0.9% [Saline Flush] 10 ml FLUSH ASDIRECTED PRN Saline Lock Insert [OM.PC] Routine EKG 12 Lead [EK] Routine 06/15/21 02:44 EKG Documentation Completion [RC] ASDIRECTED
[2021-06-15] MEDS ORDERED: Potassium Chloride 20 MEQ Tab.ER PO ONE (03:39)
[2021-06-15] MEDS ORDERED: Propofol 200 MG/20 ML SDV ONE (04:09)
[2021-06-15 04:41] VITALS: BP 126/51; PULSE 51
== END 2021-06-15 04:43 | disposition home or self-care (01) ==
LOC: JP.ED 02:32
DX: I48.0 Paroxysmal atrial fibrillation (principal); I11.0 Hypertensive heart disease with heart failure; I50.9 Heart failure, unspecified; I24.8 Other forms of acute ischemic heart disease; I25.10 Atherosclerotic heart disease of native coronary artery without angina pectoris; E78.00 Pure hypercholesterolemia, unspecified; I25.2 Old myocardial infarction; Z95.5 Presence of coronary angioplasty implant and graft; Z79.01 Long term (current) use of anticoagulants; Z79.899 Other long term (current) drug therapy; Z88.0 Allergy status to penicillin; Z88.2 Allergy status to sulfonamides; Z91.018 Allergy to other foods
CPT/HCPCS: 36415; 80053; 83880; 84443; 84484; 85025; 85610; 85730; 92960; 93005; 96374; 99285; A9270; J2704; J3490

== ENCOUNTER 2021-08-08 15:52 | Emergency (ER) | payer MEDICARE, OTHER ==
[2021-08-08] MEDS ORDERED: Metoprolol Tartrate 50 MG Tab PO ONE (16:05)
[2021-08-08] MEDS ORDERED: Sodium Chloride 0.9% 10 ML Syringe FLUSH PRN (16:14)
--- NOTE | 2021-08-08 16:14 | EDM.PDOC ---
ED HPI GENERAL MEDICAL PROBLEM - General Chief Complaint: Cardiovascular Problem Stated Complaint: RAPID HEARTBEAT (HX AFIB) Time Seen by Provider: 08/08/21 16:00 Source of Information: Reports: Patient, Old Records History Limitations: Reports: No Limitations - History of Present Illness INITIAL COMMENTS - FREE TEXT/NARRATIVE: 85 yo female presents with family for afib with RVR. She has had this problem in the past and is on both metoprolol and warfarin. Her INR was therapeutic a week ago. She believes her heart started beating fast nearly 24 hrs ago and she has not missed any of her metoprolol doses. She may have had some mild chest tightness during this interval of rapid HR and is mildly SOB. No nausea or diaphoresis. Onset: Sudden Onset Date: 08/07/21 Duration: Day(s): (1), Constant Location: Reports: Chest Quality: Reports: Dull Severity: Mild Improves with: Reports: None Worsens with: Reports: None Context: Reports: Other (see HPI) Associated Symptoms: Reports: Shortness of Breath (mild) Treatments COLLEGE ADMISSIONS COUNSELOR: Reports: Other (see below) (none) - Related Data Allergies Allergy/AdvReac Type Severity Reaction Status Date / Time ampicillin Allergy Rash Verified 08/08/21 16:02 niacin Allergy Cannot Verified 08/08/21 16:02 Remember strawberry Allergy Cannot Verified 08/08/21 16:02 Remember Sulfa (Sulfonamide Allergy Cannot Verified 08/08/21 16:02 Antibiotics) Remember zolpidem tartrate Allergy Confusion Verified 08/08/21 16:02 [From Riccardo] Home Meds: Home Meds Calcium Carbonate/Vitamin D3 [Calcium 600 + Vit D 400] 1 tab PO DAILY 11/04/14 [History] Multivitamin [Multi-Vitamin Daily] 1 tab PO DAILY 11/04/14 [History] amLODIPine [Norvasc] 10 mg PO DAILY 11/04/14 [History] atorvaSTATin [Lipitor] 20 mg PO BEDTIME 11/04/14 [History] Warfarin [Coumadin] 1 mg PO SUTUTHFRSA@2100 05/16/17 [History] Potassium Chloride [Klor-Con 10] 10 meq PO DAILY 04/12/18 [History] Benzonatate 100 mg PO TID PRN 10/29/19 [History] Clindamycin HCl 600 mg PO ASDIRECTED PRN 10/29/19 [History] Oxybutynin 2.5 mg PO BID 10/29/19 [History] Warfarin [Coumadin] 0.5 mg PO MOWE@2100 08/05/20 [History] Metoprolol Tartrate 50 mg PO BID 08/07/20 [History] Furosemide 40 mg PO BID #60 tablet 08/08/20 [Rx] Cimetidine 300 mg PO BEDTIME 08/26/20 [History] Viteyes Areds 1 tab PO BID 08/26/20 [History] Ranitidine HCl [Ranitidine] 150 mg PO BEDTIME 08/08/21 [History] Past Medical History HEENT History: Reports: Impaired Vision Cardiovascular History: Reports: Afib, CAD, Heart Valve Replacement, High Cholesterol, Hypertension, [place], 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: Musculoskeletal History: Reports: Osteoarthritis, Osteoporosis - Infectious Disease History Infectious Disease History: Reports: Chicken Pox, Measles, Mumps - Past Surgical History HEENT Surgical History: Reports: Cataract Surgery Other HEENT Surgeries/Procedures: last had a suspicious whitish lesion removed right side abve mouth Cardiovascular Surgical History: Reports: Coronary Artery Stent, Vascular Surgery GI Surgical History: Reports: Appendectomy Social & Family History - Caffeine Use Caffeine Use: Reports: Coffee - Living Situation & Occupation Living situation: Reports: 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, 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[employer], 3 children (one daughter lives in the area), many grandchildren.) ED ROS GENERAL - Review of Systems Review Of Systems: See Below Constitutional: Reports: No Symptoms HEENT: Reports: No Symptoms Respiratory: Reports: Shortness of Breath Cardiovascular: Reports: Palpitations GI/Abdominal: Reports: No Symptoms : Reports: No Symptoms Musculoskeletal: Reports: No Symptoms Skin: Reports: No Symptoms Neurological: Reports: No Symptoms ED EXAM, GENERAL - Physical Exam Exam: See Below Exam Limited By: No Limitations General Appearance: Alert, WD/WN, No Apparent Distress Eye Exam: Bilateral Eye: Normal Inspection Ears: Normal External Exam, Normal Canal, Hearing Grossly Normal Ear Exam: Bilateral Ear: Auricle Normal, Canal Normal Nose: Normal Inspection, No Blood Throat/Mouth: Normal Inspection, Normal Lips, Normal Oropharynx, Normal Voice, No Airway Compromise Head: Atraumatic, Normocephalic Neck: Normal Inspection Respiratory/Chest: No Respiratory Distress, Lungs Clear, Normal Breath Sounds, No Accessory Muscle Use Cardiovascular: Regular Rate, Rhythm, No Edema GI/Abdominal: Normal Bowel Sounds, Soft, Non-Tender, No Distention Back Exam: Normal Inspection. No: CVA Tenderness (R), CVA Tenderness (L) Extremities: Normal Inspection, Normal Range of Motion, Non-Tender, No Pedal Edema. No: Pedal Edema Neurological: Alert, Oriented, CN II-XII Intact, Normal Cognition, No Motor/Sensory Deficits Psychiatric: Normal Affect, Normal Mood Skin Exam: Warm, Dry, Intact, Normal Color, No Rash ED CARDIOLOGY PROCEDURES - Cardioversion Time of Cardioversion: 17:20 Indication: Atrial Fibrillation with RVR Patient Counseled: Yes Informed Consent Obtained: Yes Preparation: IV Access, Airway Management Equipment, Supplemental Oxygen, Other (anesthesia here) Pre-Procedure Sedation: Propofol Cardioversion Energy: 200J Sync Mode: Monophasic Successful: Yes Number of Attempts: 1 Patient Condition Post Cardioversion: Improved Post Cardioversion EKG Reviewed: No (manager monitoring confirms sinus alexi) #1 Interpretation EKG Date: 08/08/21 Time: 15:55 Rhythm: A-Fib Rate (Beats/Min): 138 [place]: Normal P-Wave: Absent QRS: Normal ST-T: Normal QT: Prolonged Comparison: Change From Previous EKG (change from sinus alexi to afib with RVR since 06/19) Course - Vital Signs Last Recorded V/S: Last Vital Signs Temp 35.4 C L 08/08/21 15:59 Pulse 106 H 08/08/21 17:18 Resp 17 08/08/21 16:59 BP 120/71 08/08/21 17:18 Pulse Ox 20 L 08/08/21 17:18 - Orders/Labs/Meds Orders: Active Orders 24 hr Category Date Time Status Cardiac Monitoring [RC] .As Directed Care 08/08/21 15:55 Active Sodium Chloride 0.9% [Saline Flush] Med 08/08/21 16:14 Active 10 ml FLUSH ASDIRECTED PRN Saline Lock Insert [OM.PC] Routine Oth 08/08/21 16:14 Ordered EKG 12 Lead [EK] Routine Ther 08/08/21 16:36 Ordered Medication Orders Sodium Chloride (Sodium Chloride 0.9% 10 Ml Syringe) 10 ml FLUSH ASDIRECTED PRN PRN Reason: Keep Vein Open Labs: Laboratory Tests 08/08/21 08/08/21 Range/Units 15:58 16:05 PT 20.5 H (9.5-12.0) sec INR 1.90 H (0.80-1.20) Troponin I < 0.017 (0.000-0.056) ng/mL Meds: Medications Generic Name Dose Route Start Last Admin Trade Name Freq PRN Reason Stop Dose Admin Sodium Chloride 10 ml 08/08/21 16:14 Sodium Chloride 0.9% 10 Ml Syringe FLUSH ASDIRECTED PRN Keep Vein Open Discontinued Medications Generic Name Dose Route Start Last Admin Trade Name Freq PRN Reason Stop Dose Admin Metoprolol Tartrate 50 mg 08/08/21 16:05 Metoprolol Tartrate 50 Mg Tab PO 08/08/21 16:06 ONETIME ONE Propofol Confirm 08/08/21 17:14 Propofol 200 Mg/20 Ml Sdv Administered 08/08/21 17:15 Dose 200 mg .ROUTE .STK-MED ONE Departure - Departure Time of Disposition: 18:00 Disposition: Home, Self-Care 01 Condition: Good Clinical Impression: Encounter for cardioversion procedure, Atrial fibrillation with RVR Referrals: Yovany Miramontes MD [Primary Care Provider] - Forms: ED Department Discharge Additional Instructions: Continue your usual medications. F/U with your provider/senior quality manager for further planning regarding management of your afib. Return as needed. Sepsis Event Note (ED) - Focused Exam Vital Signs: Vital Signs Temp Pulse Resp BP Pulse Ox 08/08/21 17:18 106 H 120/71 20 L 08/08/21 16:59 127 H 17 143/102 H 97 08/08/21 16:29 133 H 21 H 136/63 98 08/08/21 15:59 35.4 C L 125 H 20 139/89 99 - My Orders Last 24 Hours: My Active Orders 08/08/21 15:55 Cardiac Monitoring [RC] .As Directed 08/08/21 16:14 Sodium Chloride 0.9% [Saline Flush] 10 ml FLUSH ASDIRECTED PRN Saline Lock Insert [OM.PC] Routine 08/08/21 16:36 EKG 12 Lead [EK] Routine - Assessment/Plan Last 24 Hours: My Active Orders 08/08/21 15:55 Cardiac Monitoring [RC] .As Directed 08/08/21 16:14 Sodium Chloride 0.9% [Saline Flush] 10 ml FLUSH ASDIRECTED PRN Saline Lock Insert [OM.PC] Routine 08/08/21 16:36 EKG 12 Lead [EK] Routine
[2021-08-08] MEDS ORDERED: Propofol 200 MG/20 ML SDV ONE (17:14)
[2021-08-08 18:12] VITALS: BP 119/55; PULSE 55
== END 2021-08-08 18:28 | disposition home or self-care (01) ==
LOC: JP.ED 15:52
DX: I48.91 Unspecified atrial fibrillation (principal); I25.10 Atherosclerotic heart disease of native coronary artery without angina pectoris; E78.00 Pure hypercholesterolemia, unspecified; I10 Essential (primary) hypertension; I25.2 Old myocardial infarction; Z95.5 Presence of coronary angioplasty implant and graft; Z79.01 Long term (current) use of anticoagulants; Z88.0 Allergy status to penicillin; Z91.018 Allergy to other foods; Z88.2 Allergy status to sulfonamides; Z88.1 Allergy status to other antibiotic agents; Z79.899 Other long term (current) drug therapy
CPT/HCPCS: 36415; 84484; 85610; 92960; 93005; 99285; J2704

== ENCOUNTER 2021-09-02 06:16 | Emergency (ER) | payer MEDICARE, OTHER ==
--- NOTE | 2021-09-02 06:55 | EDM.PDOC ---
<Dawood Yates - Last Filed: 09/02/21 06:55> ED HPI GENERAL MEDICAL PROBLEM - General Chief Complaint: Cardiovascular Problem Stated Complaint: PT STATES AFIB Time Seen by Provider: 09/02/21 07:21 - Related Data Allergies Allergy/AdvReac Type Severity Reaction Status Date / Time ampicillin Allergy Rash Verified 09/02/21 06:28 niacin Allergy Cannot Verified 09/02/21 06:28 Remember strawberry Allergy Cannot Verified 09/02/21 06:28 Remember Sulfa (Sulfonamide Allergy Cannot Verified 09/02/21 06:28 Antibiotics) Remember zolpidem tartrate Allergy Confusion Verified 09/02/21 06:28 [From Riccardo] Home Meds: Home Meds Multivitamin [Multi-Vitamin Daily] 1 tab PO DAILY 11/04/14 [History] amLODIPine [Norvasc] 10 mg PO DAILY 11/04/14 [History] atorvaSTATin [Lipitor] 20 mg PO BEDTIME 11/04/14 [History] Warfarin [Coumadin] 1 mg PO SUTUTHFRSA@209905/16/17 [History] Potassium Chloride [Klor-Con 10] 10 meq PO DAILY 04/12/18 [History] Clindamycin HCl 600 mg PO ASDIRECTED PRN 10/29/19 [History] Oxybutynin 2.5 mg PO BID 10/29/19 [History] Warfarin [Coumadin] 0.5 mg PO MOWE@209908/05/20 [History] Metoprolol Tartrate 50 mg PO BID 08/07/20 [History] Furosemide 40 mg PO BID #60 tablet 08/08/20 [Rx] Cimetidine 300 mg PO BEDTIME 08/26/20 [History] Viteyes Areds 1 tab PO BID 08/26/20 [History] Ranitidine HCl [Ranitidine] 150 mg PO BEDTIME 08/08/21 [History] Calcium Carbonate/Vitamin D3 [Calcium 600Mg-D3 400 Unit Sfgl] 1 tab PO DAILY 09/02/21 [History] Past Medical History HEENT History: Reports: Impaired Vision Cardiovascular History: Reports: Afib, CAD, Heart Valve Replacement, High Cholesterol, Hypertension, [place], Stents 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: Musculoskeletal History: Reports: Osteoarthritis, Osteoporosis Oncologic (Cancer) History: Reports: Squamous Cell Carcinoma - Infectious Disease History Infectious Disease History: Reports: Chicken Pox, Measles, Mumps - Past Surgical History HEENT Surgical History: Reports: Cataract Surgery Other HEENT Surgeries/Procedures: last had a suspicious whitish lesion removed right side abve mouth Cardiovascular Surgical History: Reports: Coronary Artery Stent, Vascular Surgery GI Surgical History: Reports: Appendectomy, Colonoscopy, Small Bowel Social & Family History - Family History Family Medical History: No Pertinent Family History - Tobacco Use Tobacco Use Status *Q: Never Tobacco User - Caffeine Use Caffeine Use: Reports: None - Recreational Drug Use Recreational Drug Use: No - Living Situation & Occupation Living situation: Reports: 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, 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 [employer], 3 children (one daughter lives in the area), many grandchildren.) Departure - Departure Disposition: Home, Self-Care 01 Clinical Impression: Atrial fibrillation with RVR Instructions: Atrial Fibrillation Referrals: Yovany Miramontes MD [Primary Care Provider] - Forms: ED Department Discharge Additional Instructions: Continue with your regular medications, please contact your distribution estimator today for further treatment, call return to the emergency department worsening symptoms Sepsis Event Note (ED) - Evaluation Sepsis Screening Result: No Definite Risk <CarmenrVipin - Last Filed: 09/02/21 12:52> ED HPI GENERAL MEDICAL PROBLEM - General Source of Information: Reports: Patient, RN Notes Reviewed History Limitations: Reports: No Limitations - History of Present Illness INITIAL COMMENTS - FREE TEXT/NARRATIVE: 85 -year-old female presents emergency department with a complaint of palpitations Past Medical History Cardiovascular History: Reports: Afib, CAD, Heart Valve Replacement, High Cholesterol, Hypertension, [place], Stents ED ROS GENERAL - Review of Systems Review Of Systems: See Below Constitutional: Reports: No Symptoms HEENT: Reports: No Symptoms Respiratory: Reports: No Symptoms Cardiovascular: Reports: Palpitations. Denies: Chest Pain GI/Abdominal: Reports: No Symptoms ED EXAM, GENERAL - Physical Exam Exam: See Below Exam Limited By: No Limitations General Appearance: Alert, WD/WN, No Apparent Distress Respiratory/Chest: No Respiratory Distress, Lungs Clear, Normal Breath Sounds, No Accessory Muscle Use, Chest Non-Tender Cardiovascular: Tachycardia, Irregularly Irregular ED CARDIOLOGY PROCEDURES - Cardioversion Time of Cardioversion: 11:48 Indication: Atrial Fibrillation with RVR Patient Counseled: Yes Informed Consent Obtained: Yes Preparation: IV Access, Airway Management Equipment, Supplemental Oxygen, Reversal Agents Available, Other (Anesthesia) Pre-Procedure Sedation: Propofol Cardioversion Energy: Other (150) Mode: Biphasic Successful: Yes Number of Attempts: 1 Patient Condition Post Cardioversion: Improved Post Cardioversion EKG Reviewed: Yes - Additional/Other Procedure(s) Other (Free Text) Procedure(s): Preprocedure diagnosis: Atrial fibrillation with rapid ventricular response Postprocedure diagnosis: Same Indication for procedure: Unstable Performing physician: Officer Procedure: Patient is located emergency department. Review risks and benefits of electrical cardioversion including but not limited to: Superficial skin beasley, ineffective treatment, unknown arrhythmias, reaction to anesthesia medications or asystole. The risks and benefits to this procedure have been discussed. Patient wishes to proceed with electrical cardioversion. The patient was connected to cardioversion pads with EKG monitoring, oxygen via nasal cannula with equipment of intubation and suction in the room. Informed consent was completed prior to the procedure with timeout performed by nursing staff. After adequate anesthesia was achieved the machine was charged to 150 joules and a synchronized electrical shock was applied. Patient was successfully converted to normal sinus rhythm based on telemetry monitoring. Patient will remain in the emergency department for post anesthesia care until awake and alert. Plan is to discharge home. Anticoagulation of warfarin at 2.1 Complications: None apparent Postprocedural EKG: Normal sinus rhythm Face to Face time 20 minutes #1 Interpretation EKG Date: 09/02/21 Time: 07:30 Rhythm: A-Fib Downing: LAD-Left Downing Deviation P-Wave: Absent QRS: Normal ST-T: Normal QT: Normal Comparison: No Change #2 Interpretation EKG Date: 09/02/21 Time: 12:19 Rhythm: Other (ectopic) Downing: LAD-Left Downing Deviation P-Wave: Present QRS: Normal ST-T: Normal QT: Normal Comparison: Change From Previous EKG Course - Vital Signs Last Recorded V/S: Last Vital Signs Temp 97 F 09/02/21 12:09 Pulse 57 L 09/02/21 12:09 Resp 14 09/02/21 12:09 BP 129/49 L 09/02/21 12:09 Pulse Ox 98 09/02/21 12:09 - Orders/Labs/Meds Orders: Active Orders 24 hr Category Date Time Status Cardiac Monitoring [RC] .As Directed Care 09/02/21 07:18 Active Peripheral IV Care [RC] . DIRECTED Care 09/02/21 07:19 Active Sodium Chloride 0.9% [Saline Flush] Med 09/02/21 07:18 Active 10 ml FLUSH ASDIRECTED PRN Peripheral IV Insertion Adult [OM.PC] Stat Oth 09/02/21 07:18 Ordered Saline Lock Insert [OM.PC] Stat Oth 09/02/21 07:18 Ordered EKG 12 Lead [EK] Routine Ther 09/02/21 06:56 Ordered EKG 12 Lead [EK] Stat Ther 09/02/21 11:44 Ordered Medication Orders Sodium Chloride (Sodium Chloride 0.9% 10 Ml Syringe) 10 ml FLUSH ASDIRECTED PRN PRN Reason: Keep Vein Open Last Admin: 09/02/21 10:19 Dose: 10 ml Documented by: Admin: 09/02/21 09:11 Dose: 10 ml Documented by: SB Labs: Laboratory Tests 09/02/21 09/02/21 09/02/21 Range/Units 07:18 07:24 07:24 WBC 8.7 (4.5-11.0) K/uL RBC 4.70 (3.30-5.50) M/uL Hgb 14.4 (12.0-15.0) g/dL Hct 43.1 (36.0-48.0) % MCV 92 (80-98) fL MCH 31 (27-31) pg MCHC 33 (32-36) % Plt Count 249 (150-400) K/uL Neut % (Auto) 81.0 H (36-66) % Lymph % (Auto) 8.8 L (24-44) % [place] % (Auto) 8.4 H (2-6) % Eos % (Auto) 1.6 L (2-4) % Baso % (Auto) 0.2 (0-1) % PT 20.5 H (9.2-10.6) sec INR 2.1 Sodium 141 (140-148) mmol/L Potassium 3.5 L (3.6-5.2) mmol/L Chloride 102 (100-108) mmol/L Carbon Dioxide 29 (21-32) mmol/L Anion Gap 13.5 (5.0-14.0) mmol/L BUN 17 (7-18) mg/dL Creatinine 0.9 (0.6-1.0) mg/dL Est Cr Clr Drug Dosing 34.00 mL/min Estimated GFR (MDRD) 59 L (>60) Glucose 133 H (74-106) mg/dL Calcium 9.1 (8.5-10.1) mg/dL Troponin I < 0.017 (0.000-0.056) ng/mL Meds: Medications Generic Name Dose Route Start Last Admin Trade Name Freq PRN Reason Stop Dose Admin Sodium Chloride 10 ml 09/02/21 07:18 09/02/21 10:19 Sodium Chloride 0.9% 10 Ml Syringe FLUSH 10 ml ASDIRECTED PRN Administration Keep Vein Open Discontinued Medications Generic Name Dose Route Start Last Admin Trade Name Freq PRN Reason Stop Dose Admin Aspirin 324 mg 09/02/21 07:18 09/02/21 07:58 Aspirin 81 Mg Tab.Chew PO 09/02/21 07:19 Not Given ONETIME ONE Diltiazem HCl 10 mg 09/02/21 07:17 09/02/21 07:53 Diltiazem 25 Mg/5 Ml Sdv IVPUSH 09/02/21 07:18 10 mg ONETIME ONE Administration Diltiazem HCl 15 mg 09/02/21 09:00 09/02/21 09:08 Diltiazem 25 Mg/5 Ml Sdv IVPUSH 09/02/21 09:01 15 mg ONETIME ONE Administration Sodium Chloride 100 mls @ 4 mls/sec 09/02/21 11:45 Normal Saline IV 09/02/21 11:46 ASDIRECTED DAVE Iopamidol 100 ml 09/02/21 11:45 Iopamidol 755 Mg/Ml 100 Ml Bottle IV 09/02/21 11:46 . DIRECTED DAVE Metoprolol Tartrate 2.5 mg 09/02/21 10:09 09/02/21 10:14 Metoprolol Tartrate 5 Mg/5 Ml Sdv IVPUSH 09/02/21 10:10 2.5 mg ONETIME ONE Administration Propofol Confirm 09/02/21 11:32 Propofol 200 Mg/20 Ml Sdv Administered 09/02/21 11:33 Dose 200 mg .ROUTE .STK-MED ONE Sodium Chloride 10 ml 09/02/21 11:38 Sodium Chloride 0.9% 10 Ml Syringe FLUSH 09/02/21 11:39 ONETIME ONE - Re-Assessments/Exams Free Text/Narrative Re-Assessment/Exam: 09/02/21 10:10 Initially did a trial of Cardizem 10 mg followed by repeat dose of 15 unfortunately heart rate still continued variability in range from 90 bpm to 140 beats elected to try 2.5 mg metoprolol. Departure - Departure Time of Disposition: 12:52 Condition: Fair Sepsis Event Note (ED) - Focused Exam Vital Signs: Vital Signs Temp Pulse Pulse Resp BP BP Pulse Ox 09/02/21 12:09 97 F 57 L 14 129/49 L 98 09/02/21 10:14 110 H 117/61 09/02/21 10:00 110 H 117/61 09/02/21 06:35 97.5 F 127 H 20 142/86 H 100 - My Orders Last 24 Hours: My Active Orders 09/02/21 06:56 EKG 12 Lead [EK] Routine 09/02/21 07:18 Cardiac Monitoring [RC] .As Directed Sodium Chloride 0.9% [Saline Flush] 10 ml FLUSH ASDIRECTED PRN Peripheral IV Insertion Adult [OM.PC] Stat Saline Lock Insert [OM.PC] Stat 09/02/21 07:19 Peripheral IV Care [RC] . DIRECTED 09/02/21 11:44 EKG 12 Lead [EK] Stat - Assessment/Plan Last 24 Hours: My Active Orders 09/02/21 06:56 EKG 12 Lead [EK] Routine 09/02/21 07:18 Cardiac Monitoring [RC] .As Directed Sodium Chloride 0.9% [Saline Flush] 10 ml FLUSH ASDIRECTED PRN Peripheral IV Insertion Adult [OM.PC] Stat Saline Lock Insert [OM.PC] Stat 09/02/21 07:19 Peripheral IV Care [RC] . DIRECTED 09/02/21 11:44 EKG 12 Lead [EK] Stat Plan: Assessment Acuity = acute Site and laterality = atrial fibrillation with rapid ventricular response status post electrical cardioversion Etiology = unknown Manifestations = none Location of injury = Home Lab values = CBC, BMP, troponin within normal limits I stabilized Plan Did not do 2 medications Cardizem and metoprolol with little effect heart rate like to proceed with cardioversion which is half times the last event was about a month ago she is going to contact her distribution estimator today for treatment recommendations This note was dictated using [employer] voice recognition software please call with any questions on syntax or grammar.
[2021-09-02] MEDS ORDERED: Diltiazem 25 MG/5 ML SDV IVPUSH ONE ×2 (07:17→09:00)
[2021-09-02] MEDS ORDERED: Aspirin 81 MG Tab.Chew PO ONE (07:18)
[2021-09-02] MEDS: Sodium Chloride 0.9% 10 ML Syringe FLUSH PRN ×2 (09:11→10:19)
[2021-09-02] MEDS ORDERED: Metoprolol Tartrate 5 MG/5 ML SDV IVPUSH ONE (10:09)
[2021-09-02] MEDS ORDERED: Propofol 200 MG/20 ML SDV ONE (11:32)
[2021-09-02] MEDS ORDERED: Sodium Chloride 0.9% 10 ML Syringe FLUSH ONE (11:38)
[2021-09-02] MEDS ORDERED: Iopamidol 755 Mg/ML 100 ML Bottle IV SCH (11:45)
[2021-09-02] MEDS ORDERED: Sodium Chloride 0.9% 100 ML IV SCH (11:45)
[2021-09-02 12:10] VITALS: BP 129/49; PULSE 57
== END 2021-09-02 13:16 | disposition home or self-care (01) ==
LOC: JP.ED 06:16
DX: I48.91 Unspecified atrial fibrillation (principal); I25.10 Atherosclerotic heart disease of native coronary artery without angina pectoris; E78.00 Pure hypercholesterolemia, unspecified; I10 Essential (primary) hypertension; I25.2 Old myocardial infarction; M19.90 Unspecified osteoarthritis, unspecified site; Z88.0 Allergy status to penicillin; Z88.1 Allergy status to other antibiotic agents; Z91.018 Allergy to other foods; Z88.2 Allergy status to sulfonamides; Z88.8 Allergy status to other drugs, medicaments and biological substances; Z79.899 Other long term (current) drug therapy
CPT/HCPCS: 36415; 80048; 84484; 85025; 85610; 92960; 93005; 96374; 96375; 96376; 99285; J2704; J3490